=== PATIENT | male | born 1950 | race Caucasian/White ===

== ENCOUNTER 2018-06-22 08:30 | Day surgery (SDC) | payer MEDICARE, OTHER, SELFPAY ==
[2018-06-22 09:00] VITALS: BP 131/77; PULSE 71; RESP 18; TEMP 36.3; O2SAT 99
[2018-06-22] MEDS: SODIUM CHLORIDE 0.9% 1,000 ML 200 ML IV (09:35)
--- NOTE | 2018-06-22 10:08 | PM.HP.1 ---
History of Present Illness Date Patient Seen: 06/22/18 Time Patient Seen: 10:09 Chief complaint: [id number] Narrative: 67yo M for surveillance colonoscopy. Last scope around 2001, polyps found. Mother had CRC around her 70s. No alarm symptoms in patient. Diabetic, glucose high this AM at 206, pt did not take his meds yesterday or today due to prep. Patient History Social History household members: spouse Family & Social History Social History: household members spouse Meds Home Medications Medication Instructions Recorded Confirmed Type aspirin 1 tab PO DAILY 06/22/18 06/22/18 History atorvastatin 20 mg PO DAILY 06/22/18 06/22/18 History cholecalciferol (vitamin D3) 1 cap PO DAILY 06/22/18 06/22/18 History [Vitamin D3] lamotrigine 400 mg PO BID 06/22/18 06/22/18 History losartan 50 mg PO DAILY 06/22/18 06/22/18 History topiramate 200 mg PO BID 06/22/18 06/22/18 History Allergies Allergy/AdvReac Type Severity Reaction Status Date / Time No Known Drug Allergies Allergy Verified 06/22/18 09:35 Review of Systems Constitutional Constitutional: Reports as per HPI Exam Vital Signs (past 8 hours): - 06/22/18 09:00 Temperature 97.3 F L Pulse Rate 71 Respiratory Rate 18 Blood Pressure 131/77 Pulse Oximetry 99 Oxygen Delivery Method Room Air Narrative Exam Narrative: AAO, NAD, overweight male EOMI, MMM, no scleral icterus unlabored RA soft, nt/nd MAEW visible skin dry and intact Assessment & Plan (1) History of colon polyps: Current visit: Yes Status: Acute Assessment & Plan narrative: - surveillance colonoscopy in high risk patient --> all R/B/A discussed and pt wishes to proceed
[2018-06-22] MEDS: fentaNYL 250 MCG/5 ML INJ IV (10:29)
[2018-06-22] MEDS: MIDAZOLAM 5 MG/5 ML VIAL IV (10:29)
[2018-06-22 10:45] VITALS: BP 101/61; PULSE 72; RESP 13; TEMP 36.4; O2SAT 95
[2018-06-22 10:58] VITALS: BP 109/61; PULSE 66; RESP 16; TEMP 36.1; O2SAT 97
--- NOTE | 2018-06-22 12:31 | PM.OP.ENDO ---
Operative Date/Time/Diagnoses Date of procedure: 06/22/18 Time of procedure: 10:40 Pre-op diagnosis: Surveillance colonoscopy in high risk patient Post-op diagnosis: same Procedure & Clinicians Study performed: Surveillance colonoscopy Same procedure as scheduled: Yes Indications: Patient with a family history of CRC in Mother, diagnosed around her 70s, as well as a personal history of polyps at his last scope in 2001. Surgeon: Zora Marsh Procedure Notes SCOAP/Timeout: 1013 Procedure in detail: After obtaining informed consent, the patient was brought to the GI suite and placed in the left lateral decubitus position on the examination table. After placement of appropriate monitors, the patient was given incremental doses of Versed and Fentanyl until an appropriate level of sedation was achieved. A time out was held per SCOAP protocol. A digital rectal examination was performed and did not reveal any masses or obstructing lesions. The colonoscope was gently passed into the patient's anus and the entire colon navigated to the level of the cecum with minimal difficulty. Prep was adequate. Once in the cecum, the scope was slowly withdrawn being sure to go before and beyond all mucosal folds and prominences as able to get a thorough examination. No masses or polyps are noted. At the level of the rectal vault, the scope was retroflexed and the internal anal canal was examined. The scope was straightened and air aspirated from the colon. The instrument was removed from the patient's body and the procedure was concluded. The patient was allowed to awaken from sedation without difficulty and taken to the post-anesthesia care unit in good condition. Scope withdrawal time: 11 min Sedation minutes: 25 Specimen(s): none sent Complications: none Impression: negative surveillance colonoscopy Recommendations: Colonscopy in 5 years Follow up: weeks Disposition: PACU
== END 2018-06-22 11:06 | disposition home or self-care (01) ==
PROVIDERS: PCP Physician Assistant; Visit Provider Surgery
PROC: 0DJD8ZZ Inspection of Lower Intestinal Tract, Via Natural or Artificial Opening Endoscopic (ICD-10-PCS; CPT 45378; principal; 2018-06-22 10:45)
DX: Z86.010 Personal history of colon polyps (principal); Z80.0 Family history of malignant neoplasm of digestive organs; E11.9 Type 2 diabetes mellitus without complications
CPT/HCPCS: G0105; 99152; 99153; J2250; J3010

== ENCOUNTER → 2018-11-24 15:14 | Outpatient (ROUT) | payer MEDICARE, OTHER, SELFPAY ==
[2018-11-24 15:25] LABS: Add Manual Diff / Slide Review NO; Basophils Absolute Auto 0 /uL (0-100); Basophils Percent Auto 0.9 % (0-2); Eosinophils Absolute Auto 100 /uL (0-450); Eosinophils Percent Auto 2.4 % (2-4); Hematocrit 45.8 % (41-53); Hemoglobin 15.2 g/dL (13.5-17.5); Lymphocytes Absolute Auto 1200 /uL (1100-4500); Lymphocytes Percent Auto 22.6 % (25-40); Mean Corpuscular HGB Conc 33.2 % (30-36); Mean Corpuscular Hemoglobin 28.9 PG (26-34); Mean Corpuscular Volume 87.2 fL (80-100); Monocytes Absolute Auto 500 /uL (0-900); Monocytes Percent Auto 9.5 % (3-14); Neutrophils Absolute Auto 3500 /uL (1500-7000); Neutrophils Percent Auto 64.6 % (50-75); Platelet Count 168 X10^3/uL (150-400); Red Blood Cell Count 5.25 X10^6/uL (4.5-5.9); Red Cell Distribution Width 13.9 % (11.6-14.8); White Blood Cell Count 5.4 X10^3/uL (4.5-11.0)
[2018-11-24 15:44] LABS: Alanine Aminotransferase 27 IU/L (21-72); Albumin Globulin Ratio 1.7 (1.0-2.8); Alkaline Phosphatase 88 U/L (38-126); Aspartate Aminotransferase 30 IU/L (17-59); BUN Creatinine Ratio 16.9 (6-22); Bilirubin Total 0.5 mg/dL (0.2-1.3); Blood Urea Nitrogen 22 mg/dL (9-20); Calcium 9.5 mg/dL (8.4-10.2); Carbon Dioxide 25 mmol/L (22-32); Chloride 109 mmol/L (98-107); Cholesterol 136 mg/dL (140-199); Estimated Glomerular Filt Rate 55.1 mL/min (>60); Globulin 2.4 g/dL (1.7-4.1); Glucose 107 mg/dL (80-110); HDL Cholesterol 60 mg/dL (40-60); HEMOLYSIS < 15 (0-50); LDL Cholesterol Calculated 56 mg/dL (<100); Potassium 4.2 mmol/L (3.4-5.1); Sodium 141 mmol/L (137-145); Total Protein 6.4 g/dL (6.3-8.2); Triglycerides 100 mg/dL (35-150)
== END ==
PROVIDERS: PCP Physician Assistant; Visit Provider Physician Assistant
DX: I10 Essential (primary) hypertension (principal); E78.5 Hyperlipidemia, unspecified; E11.9 Type 2 diabetes mellitus without complications
CPT/HCPCS: 80053; 80061; 85025

== ENCOUNTER → 2020-02-29 19:10 | Outpatient (ROUT) | payer MEDICARE, OTHER, SELFPAY ==
[2020-02-29 19:33] LABS: Add Manual Diff / Slide Review NO; Basophils Absolute Auto 0 /uL (0-100); Basophils Percent Auto 0.8 % (0-2); Eosinophils Absolute Auto 200 /uL (0-450); Eosinophils Percent Auto 2.9 % (2-4); Hematocrit 46.5 % (41-53); Hemoglobin 14.9 g/dL (13.5-17.5); Lymphocytes Absolute Auto 1400 /uL (1100-4500); Lymphocytes Percent Auto 24.5 % (25-40); Mean Corpuscular HGB Conc 32.2 % (30-36); Mean Corpuscular Hemoglobin 27.9 PG (26-34); Mean Corpuscular Volume 86.9 fL (80-100); Monocytes Absolute Auto 600 /uL (0-900); Monocytes Percent Auto 9.8 % (3-14); Neutrophils Absolute Auto 3700 /uL (1500-7000); Platelet Count 194 X10^3/uL (150-400); Red Blood Cell Count 5.35 X10^6/uL (4.5-5.9); Red Cell Distribution Width 13.2 % (11.6-14.8); White Blood Cell Count 5.9 X10^3/uL (4.5-11.0)
[2020-02-29 19:37] LABS: Alanine Aminotransferase 27 IU/L (<50); Albumin 3.8 g/dL (3.5-5.0); Albumin Globulin Ratio 1.7 (1.0-2.8); Alkaline Phosphatase 100 U/L (38-126); Aspartate Aminotransferase 25 IU/L (17-59); Bilirubin Total 0.4 mg/dL (0.2-1.3); Blood Urea Nitrogen 22 mg/dL (9-20); Calcium 9.2 mg/dL (8.4-10.2); Carbon Dioxide 30 mmol/L (22-32); Chloride 106 mmol/L (98-107); Cholesterol 155 mg/dL (140-199); Estimated Glomerular Filt Rate 47.5 mL/min (>60); Globulin 2.2 g/dL (1.7-4.1); Glucose 172 mg/dL (80-110); HDL Cholesterol 61 mg/dL (40-60); LDL Cholesterol Calculated 59 mg/dL (<100); Potassium 4.8 mmol/L (3.4-5.1); Sodium 137 mmol/L (137-145); Triglycerides 174 mg/dL (35-150)
[2020-02-29 19:39] LABS: NT-proBNP (BNP-Adult 18+) 33 pg/mL (<125)
[2020-02-29 19:42] LABS: Erythrocyte Sedimentation Rate 1 MM/HR (0-15)
[2020-02-29 19:45] LABS: HEMOLYSIS 18 (0-50)
[2020-02-29 20:06] LABS: C-Reactive Protein Quant < 0.5 mg/dL (<1.0)
== END ==
PROVIDERS: PCP Physician Assistant; Visit Provider Physician Assistant
DX: E11.21 Type 2 diabetes mellitus with diabetic nephropathy (principal); E78.2 Mixed hyperlipidemia; M79.10 Myalgia, unspecified site; M19.90 Unspecified osteoarthritis, unspecified site; R06.02 Shortness of breath; Z12.5 Encounter for screening for malignant neoplasm of prostate
CPT/HCPCS: 80053; 80061; 83880; 85025; 85651; 86140; G0103

== ENCOUNTER → 2021-05-02 13:33 | Outpatient (CLI) | payer MEDICARE, OTHER, SELFPAY ==
--- NOTE | 2021-05-02 13:35 | DI.MRI.S_ITS ---
PROCEDURE: MR PELIS WO/W CON INDICATIONS: BPH TECHNIQUE: Coronal HASTE, axial T1 FSE with fat saturation, 3-plane nonbreath-hold T2 FSE. After the administration of contrast, dynamic axial, delayed axial and coronal VIBE or 2-D FLASH with fat saturation through the pelvis. Optional diffusion weighted imaging and ADC may be performed. COMPARISON: None. FINDINGS: Image quality: Diffusion weighted and dynamic contrast enhanced images are diagnostic. Prostate: Gland size is 6.6 x 6.2 x 4.5 cm cm; ellipsoid gland volume is 95 mL. No significant foci of intrinsic T1 hyperintensity to suggest hemorrhage. Multiple BPH nodules Lesion size(s): Lesion 1: 1.4 x 1.2 cm, (05/31) Lesion location(s) (sector): Lesion 1: Left mid gland transitional zone Lesion description: Lesion 1: Oval T2 weighted imaging (T2WI) morphology score: Lesion 1: 4 Diffusion weighted imaging (DWI) morphology score: Lesion 1: 4 Dynamic contrast enhancement (DCE): Lesion 1: Present Lesion PI-RADS score: Lesion 1: PI-RADS 4 Genitourinary system: There is asymmetric intrinsic T1 hyperintense signal in the right seminal vesicle. The size of the seminal vesicles is similar. Bladder wall thickness is normal. Distal ureters are non distended. Bowel and peritoneum: No pathologic free pelvic fluid. Inferior colon and small bowel loops are normal in caliber. The appendix is not dilated. Nodes and vessels: No pelvic or inguinal adenopathy by size criteria. Iliac vessels are normal in caliber. Soft tissues: No inguinal hernias. Bones: Marrow demonstrates normal overall signal, without lesions to suggest metastases. IMPRESSION: 1. Marked prostatomegaly with multiple BPH nodules. 2. Left mid gland transitional zone observation measuring 1.4 cm. PI-RADS 4. 3. Suspect hemorrhage within the right seminal vesicle. 4. No adenopathy. Dictated by: Gui Charles M.D. on 05/02/2021 at 14:26 Approved by: Gui Charles M.D. on 05/02/2021 at 14:40
== END ==
PROVIDERS: PCP Physician Assistant; Referring Provider Specialist; Visit Provider Specialist
DX: R97.20 Elevated prostate specific antigen [PSA] (principal); N13.8 Other obstructive and reflux uropathy; N40.1 Benign prostatic hyperplasia with lower urinary tract symptoms; N40.2 Nodular prostate without lower urinary tract symptoms
CPT/HCPCS: 72197

== ENCOUNTER → 2021-10-10 13:59 | Outpatient (CLI) | payer MEDICARE, OTHER, SELFPAY ==
[2021-10-10 14:58] LABS: Hemoglobin 14.6 g/dL (13.5-17.5); Mean Corpuscular HGB Conc 33.9 % (30-36); Mean Corpuscular Hemoglobin 29.2 PG (26-34); Mean Corpuscular Volume 86.2 fL (80-100); Platelet Count 180 X10^3/uL (150-400); Red Blood Cell Count 4.99 X10^6/uL (4.5-5.9); Red Cell Distribution Width 13.5 % (11.6-14.8); White Blood Cell Count 5.3 X10^3/uL (4.5-11.0)
[2021-10-10 15:14] LABS: Alanine Aminotransferase 37 IU/L (<50); Albumin 4.2 g/dL (3.5-5.0); Albumin Globulin Ratio 1.7 (1.0-2.8); Alkaline Phosphatase 74 U/L (38-126); Aspartate Aminotransferase 36 IU/L (17-59); BUN Creatinine Ratio 15.2 (6-22); Bilirubin Total 0.4 mg/dL (0.2-1.3); Blood Urea Nitrogen 20 mg/dL (9-20); Calcium 8.9 mg/dL (8.4-10.2); Carbon Dioxide 25 mmol/L (22-32); Chloride 110 mmol/L (98-107); Cholesterol 133 mg/dL (140-199); Estimated Glomerular Filt Rate 58 mL/min (>60); Globulin 2.5 g/dL (1.7-4.1); Glucose 71 mg/dL (80-110); Sodium 141 mmol/L (137-145); Total Protein 6.7 g/dL (6.3-8.2); Triglycerides 101 mg/dL (35-150)
[2021-10-10 15:16] LABS: HDL Cholesterol 60 mg/dL (40-60); HEMOLYSIS < 15 (0-50); LDL Cholesterol Calculated 53 mg/dL (<100); Potassium 3.9 mmol/L (3.4-5.1)
[2021-10-10 15:43] LABS: TSH w/ Reflex to FT4 0.52 uIU/mL (0.47-4.68)
[2021-10-10 16:11] LABS: Creatinine Urine Random 143.1 mg/dL
[2021-10-10 16:16] LABS: Microalbumin Urine Random 5.3 mg/dL (0-1.6)
[2021-10-15 17:07] LABS: Lamotrigine Lamictal 8.5 ug/mL (2.0-20.0)
== END ==
PROVIDERS: PCP Internal Medicine; Referring Provider Internal Medicine; Visit Provider Internal Medicine
DX: E11.22 Type 2 diabetes mellitus with diabetic chronic kidney disease (principal); E11.3593 Type 2 diabetes mellitus with proliferative diabetic retinopathy without macular edema, bilateral; E78.2 Mixed hyperlipidemia; I10 Essential (primary) hypertension; N18.32 Chronic kidney disease, stage 3b; Z79.4 Long term (current) use of insulin; G40.909 Epilepsy, unspecified, not intractable, without status epilepticus
CPT/HCPCS: 36415; 80053; 80061; 80175; 82043; 82570; 83036; 84443; 85027

== ENCOUNTER → 2021-12-11 13:47 | Outpatient (CLI) | payer MEDICARE, OTHER, SELFPAY ==
--- NOTE | 2021-12-20 16:40 | DIAB.MNT ---
Initial Diabetes Medical Nutrition Therapy Assessment Name: John Perez (Isaiah) Date: 12/11/21 Time: 2-3p Dx: Type II Diabetes Provider: Lyndsay Colon presents for initial visit today. States he has had DM for 25 years. +FH of Dm with father and paternal grandfather. Reports he wants to cut back on some foods but worries about hypoglycemia. Treats with PBj, milk, or sometimes beer. Experienced [id number] last month, none this month. PMH of retinopathy and CKD with recent GFR of 58 and Cr of 1.32. Last HgA1c of 7% in Sep 2021. Does not like to prick finger. Interested in CGM, provider agrees per notes. Given 4 injections per day, he should qualify for CGM coverage. Diet recall: 10a: frozen chimichanga and 3c coffee with 1 TBS sweet creamer snackin-3 small slices pizza 6p: steak and 2 red skin potatoes, no veggies or broccoli ; shrimp salad Beverages: coffee, crystal light, water Anthropometrics: Ht: 6'3 Wt: 256# Physical Activity: Has 5 acres and horses. 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 Self-Monitoring Blood Glucose: Only checks FBG. Today was 122mg/dL in goal. States FBG often 100-140mg/dL. Diabetes Medications: Glargine 50u HS Aspart 40u TID Pertinent Labs: 09/2021 HgA1c 7% GFR: 58 ml/min Cr: 1.32 mg/dl cholesterol 133 mg/dl LDL 53 mg/dl HDL; 60 mg/dl Past Medical History: (Last Updated 09/20/21 @ 15:14 by Gene Umana MD) BPH w urinary obs/LUTS Diabetic retinopathy Elevated PSA Erectile dysfunction due to diabetes mellitus Essential hypertension Mixed hyperlipidemia Obesity (BMI 30.0-34.9) Seizure disorder Stage 3b chronic kidney disease (CKD) Type 2 diabetes mellitus with stage 3b chronic kidney disease Nutrition Rx: Plate Method Nutrition Diagnosis: - Predicted excessive Na intake r/t convenience foods aeb diet recall - Self monitoring deficit r/t not wanting to check BG aeb pt report of only checking FBG - Nutrition and foods related knowledge deficit r/t no education on proper low tx aeb pt report of treating with proteins and ETOH Intervention: This participant was very receptive. Provided appropriate educational handouts. Discussed the following topics: Completed intake assessment. Discussed barriers to care. Importance of self-monitoring, potential for CGM, process of CGM trial and ordering personal CGM Plate Method Heart health nutrition Rule of 15 to treat low blood sugar ETOH impact on BG Created SMART goals for patient self-care and success. Goals: Download CGM apps Practice Rule of 15 of lows Follow-up: KALPANA SEAMAN follow-up in 1 week for CGM trail. JURGEN will provide ADS form to provider to order CGM. Will discuss nutrition in detail in the future. Marietta Lira RDN, [facility] Certified Diabetes Care and Business Writer P: [phone] Thank you for this referral
== END ==
PROVIDERS: PCP Internal Medicine; Referring Provider Internal Medicine; Visit Provider Internal Medicine
DX: E11.9 Type 2 diabetes mellitus without complications (principal); Z79.4 Long term (current) use of insulin; Z71.3 Dietary counseling and surveillance
CPT/HCPCS: 97802

== ENCOUNTER → 2021-12-19 13:10 | Outpatient (CLI) | payer MEDICARE, OTHER, SELFPAY ==
--- NOTE | 2021-12-26 13:12 | DIAB.FU ---
Follow-up Diabetes Education Assessment: CGM Trial Name: John Perez (Isaiah) Date: 12/19/21 Time: 130-215p Dx: Type II Diabetes Provider: Lyndsay Colon presents for diabetes follow-up and CGM trial placement. Reports increasing vegetable intake, mostly with carrots. Has downloaded apps for CGM trial, as discussed. Diabetes Medications: Glargine 50u HS Aspart 40u TID Pertinent Labs: 09/2021 HgA1c 7% GFR: 58 ml/min Cr: 1.32 mg/dl cholesterol 133 mg/dl LDL 53 mg/dl HDL; 60 mg/dl Past Medical History: (Last Updated 09/20/21 @ 15:14 by Gene Umana MD) BPH w urinary obs/LUTS Diabetic retinopathy Elevated PSA Erectile dysfunction due to diabetes mellitus Essential hypertension Mixed hyperlipidemia Obesity (BMI 30.0-34.9) Seizure disorder Stage 3b chronic kidney disease (CKD) Type 2 diabetes mellitus with stage 3b chronic kidney disease Intervention: This participant was very receptive. Provided appropriate educational handouts. Discussed the following topics: CGM education and self-placement Reviewed CGM and finger prick uses and how to treat a low safely Discussed process for personal CGM Created SMART goals for patient self-care and success. Goals: Download CGM apps- met Add vegetables daily- met Practice Rule of 15 of lows CGM Trial for 10 days Follow-up: KALPANA SEAMAN follow-up in [address] CGM order form in PCP office. Will review CGM data and provide DM follow-up in two weeks. Marietta Lira RDN, [facility] Certified Diabetes Care and Client Care Coordinator P: [phone] Thank you for this referral
== END ==
PROVIDERS: PCP Internal Medicine; Referring Provider Internal Medicine; Visit Provider Internal Medicine
DX: E11.9 Type 2 diabetes mellitus without complications (principal); Z79.4 Long term (current) use of insulin; Z71.3 Dietary counseling and surveillance
CPT/HCPCS: G0108

== ENCOUNTER → 2022-01-03 12:56 | Outpatient (CLI) | payer MEDICARE, OTHER, SELFPAY ==
--- NOTE | 2022-01-04 11:14 | DIAB.MNTFU ---
Follow-up Diabetes Medical Nutrition Therapy Assessment Name: John Perez (Isaiah) Date: 01/03/22 Time: 1-2p Dx: Type II Diabetes Provider: Lyndsay Colon presents for diabetes follow-up. Reports he did not like the Dexcom CGM. States he felt it was inaccurate 10+ points. It did alert him to lows, but when the finger prick was 5 points off he felt that it was not reliable. Feels the apps are draining his phone battery and wants to delete them today. Interested in the [employer] d/t doing personal research. This RD/CDCES can try to provide him a trial prior to ordering. States he has been eating more carrots and cauliflower. Diet recall indicates high sodium intake with burritos at breakfast (600mg Na) and pizza as a snack in the afternoon daily. Additionally high carb intake with long periods of fasting between some days. 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 Self-Monitoring Blood Glucose: Only checks FBG. Today was 113mg/dL in goal. States FBG often 100-140mg/dL. Could not access the CGM data from his alexandr today d/t connection problems. Per provider notes, 85% time in range but some severe BG excursions of 55 to 300 mg/dL. Isaiah states he has been better about treating lows with 10-15g quick carbs using Rule of15. We deleted the CGM apps per his request today. Diabetes Medications: Glargine 50u HS Aspart 40u BID at meals Pertinent Labs: 09/2021 HgA1c 7% GFR: 58 ml/min Cr: 1.32 mg/dl cholesterol 133 mg/dl LDL 53 mg/dl HDL; 60 mg/dl Past Medical History: (Last Reviewed 12/28/21 @ 09:30 by Gene Umana MD) BPH w urinary obs/LUTS Diabetic retinopathy Elevated PSA Erectile dysfunction due to diabetes mellitus Essential hypertension Mixed hyperlipidemia Obesity (BMI 30.0-34.9) Seizure disorder Stage 3b chronic kidney disease (CKD) Type 2 diabetes mellitus with stage 3b chronic kidney disease Nutrition Rx: Plate Method Nutrition Diagnosis: - Predicted excessive Na intake r/t convenience foods aeb diet recall - in progress - Self monitoring deficit r/t not wanting to check BG aeb pt report of only checking FBG- in progress - Nutrition and foods related knowledge deficit r/t no education on proper low tx aeb pt report of treating with proteins and ETOH- improved - Excessive CHO intake r/t long periods of fasting resulting in large portions aeb diet recall - new Intervention: This participant was very receptive. Provided appropriate educational handouts. Discussed the following topics: Blood sugar review and trends. Plate Method, impact of macronutrients on blood sugar, meal timing, carbohydrate counting, pairing macronutrients and spreading out carbohydrates for better blood glucose management Heart and kidney health nutrition: sodium Meal planning and carb portion review Lower Na breakfast ideas Potential for different CGM trail Created SMART goals for patient self-care and success. Goals: Practice Rule of 15 of lows- met CGM Trial for 10 days - met Take a photo of oatmeal at home- new Add lunch and afternoon snack scheduled - new Reduce carbs at dinner (1c for rice or pasta and 1.5c for potatoes)- new Follow-up: KALPANA SEAMAN follow-up in 2-3 weeks Marietta Lira RDN, [facility] Certified Diabetes Care and Federal Appellate Law Clerk P: [phone] Thank you for this referral
== END ==
PROVIDERS: PCP Internal Medicine; Referring Provider Internal Medicine; Visit Provider Internal Medicine
DX: E11.9 Type 2 diabetes mellitus without complications (principal); Z71.3 Dietary counseling and surveillance; Z79.4 Long term (current) use of insulin
CPT/HCPCS: 97803

== ENCOUNTER 2022-01-13 07:50 | Emergency (ER) | payer MEDICARE, OTHER, SELFPAY ==
[2022-01-13] VITALS (14 sets, daily range): BP systolic 153–209; BP diastolic 70–98; PULSE 92–103; RESP 17–28; TEMP 36.7; O2SAT 93–98; BMI 33.1
--- NOTE | 2022-01-13 08:05 | DI.RAD.S_ITS ---
PROCEDURE: XR CHEST 1V INDICATIONS: chest pain TECHNIQUE: One view of the chest was acquired. COMPARISON: [facility], , CHEST 2VW, 06/18/2011, 13:25. FINDINGS: Surgical changes and devices: None. Lungs and pleura: On this semiupright portable chest examination, no large pneumothorax or large pleural effusions are seen. No focal infiltrates are seen. Mediastinum: Mediastinal contours appear normal. Heart size is normal. Bones and chest wall: No suspicious bony lesions. Age-appropriate bony degenerative changes are seen. Overlying soft tissues appear unremarkable. IMPRESSION: Portable chest within normal limits. Dictated by: Stuart Dotson M.D. on 01/13/2022 at 8:09 Approved by: Stuart Doston M.D. on 01/13/2022 at 8:10
--- NOTE | 2022-01-13 08:14 | ED_ITS ---
HPI - URI/Sore Throat General Chief Complaint: Shortness of Breath/Dyspnea Stated Complaint: SOB/CHEST PAIN Time Seen by Provider: 01/13/22 08:09 Source: patient and family Mode of arrival: Ambulatory History of Present Illness HPI Narrative: Patient here with . Complains of cough cold congestion nasal congestion short of breath for the past 1 week, starting last Friday. Patient states had flu shot as well as COVID vaccine this year. Unknown sick contacts. No fever or chills. No lymphedema. No history of CHF. Has reproducible sternal chest discomfort pain with coughing and movement. Patient sounds very nasally congested. Has audible wheezing. No formal diagnosis of asthma but long suspected of having asthma. No history of CHF. Denies any exertional chest pain. Patient in no distress at this time. Related Data Home Medications Medication Instructions Recorded Confirmed aspirin 81 mg chewable tablet 1 tab PO DAILY 06/22/18 12/28/21 atorvastatin 20 mg tablet 20 mg PO DAILY 06/22/18 12/28/21 cholecalciferol (vitamin D3) 50 1 cap PO DAILY 06/22/18 12/28/21 mcg (2,000 unit) capsule (Vitamin D3) lamotrigine 200 mg tablet 400 mg PO BID 06/22/18 12/28/21 topiramate 200 mg tablet 200 mg PO BID 06/22/18 12/28/21 insulin aspart U-100 100 unit/mL 30 unit SUBCUT TIDWMEAL 10/17/20 12/28/21 (3 mL) subcutaneous pen (Novolog Flexpen U-100 Insulin aspart) insulin glargine 100 unit/mL (3 44 unit SUBCUT QPM 10/17/20 12/28/21 mL) subcutaneous pen (Lantus Solostar U-100 Insulin) Previous Rx's Medication Instructions Recorded tamsulosin 0.4 mg capsule 0.4 mg PO BEDTIME #90 caps 08/22/21 losartan 100 mg tablet 100 mg PO DAILY #90 tabs 09/20/21 benzonatate 100 mg capsule 100 mg PO TID PRN cough #20 caps 01/13/22 Allergies Allergy/AdvReac Type Severity Reaction Status Date / Time No Known Drug Allergies Allergy Verified 12/28/21 13:00 Review of Systems Review of Systems Narrative: GENERAL: negative chills, fatigue, malaise, fever, sweats. HEENT: negative sinus pain, ear pain, sore throat, positive nasal congestion, RESPIRATORY: Positive dyspnea, cough CARDIOVASCULAR: negative chest pain, palpitations GASTROINTESTINAL: negative nausea, vomiting, abdominal pain : negative dysuria, frequency, hematuria MUSCULOSKELETAL: negative muscle or bony pain SKIN: negative rash, skin lesions NEUROLOGIC: negative weakness, numbness ROS Unobtainable: All systems reviewed & are unremarkable except as noted in HPI and below Patient History Medical History BPH w urinary obs/LUTS Diabetic retinopathy Elevated PSA Erectile dysfunction due to diabetes mellitus Essential hypertension Mixed hyperlipidemia Obesity (BMI 30.0-34.9) Seizure disorder Stage 3b chronic kidney disease (CKD) Type 2 diabetes mellitus with stage 3b chronic kidney disease Surgical History Hx of prostate biopsy Family History Father Diabetes mellitus Grandfather Diabetes mellitus Social History marital status: details: three adopted children, 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 EYES: Pupils equal round No scleral icterus. ENT: Mucous membranes moist. bilateral edematous nasal mucosa NECK: Trachea midline. CARDIOVASCULAR: Regular rate and rhythm without murmurs RESPIRATORY: Speaking full sentences, there is diminished bilateral lung sounds at the bases. There is diffuse mild bilateral wheezing. No rales GASTROINTESTINAL: Abdomen soft, non-tender EXTREMITIES: No gross deformities. No ankle edema BACK: No flank tenderness. NEURO: AOx4. SKIN: Warm and dry PSYCH: Not anxious, is cooperative Initial Vital Signs Initial Vital Signs: Vital Signs Pulse Rate 97 H 01/13/22 08:01 Pulse Oximetry 95 01/13/22 08:01 Course Course Course Narrative: No new issues during course of stay Orders Ordered: ED Orders 01/13/22 07:58 Complete Blood Count AUTO DIFF Stat Comprehensive Metabolic Panel Stat Covid-19 + FLU A/B + RSV - PCR Stat Lipase Stat Magnesium Stat Partial Thromboplastin Time Stat Prothrombin Time INR Stat Troponin & CK Cardiac Panel Stat 01/13/22 08:05 XR chest 1V Stat EKG-12 Lead Stat Discontinued Medications Albuterol (Albuterol 2.5 Mg/3 Ml Neb (Adult)) 2.5 mg INH NOW ONE Stop: 01/13/22 09:26 Last Admin: 01/13/22 09:34 Dose: 2.5 mg Documented By: FATOU Albuterol (Albuterol Hfa Prepack) 1 box MISC SEEINSTR ONE Stop: 01/13/22 09:26 Last Admin: 01/13/22 09:34 Dose: 1 box Documented By: FATOU Albuterol/Ipratropium (Albuterol/Ipratropium 3 Ml Ampul) 3 ml INH NOW ONE Stop: 01/13/22 08:15 Last Admin: 01/13/22 08:20 Dose: 3 ml Documented By: FATOU Aspirin (Aspirin 81 Mg Chew Tab) 324 mg PO NOW ONE Stop: 01/13/22 08:06 Last Admin: 01/13/22 09:01 Dose: Not Given Documented By: EUGENIO Dexamethasone (Dexamethasone 10 Mg/Ml Vial) 10 mg IV NOW ONE Stop: 01/13/22 09:26 Last Admin: 01/13/22 10:15 Dose: 10 mg Documented By: TRINITY Losartan Potassium (Losartan 50 Mg Tablet) 100 mg PO NOW ONE Stop: 01/13/22 09:26 Last Admin: 01/13/22 10:30 Dose: 100 mg Documented By: EUGENIO Oxymetazoline HCl (Oxymetazoline Nasal [place] 15 Ml) 2 sprays NASAL NOW ONE Stop: 01/13/22 08:15 Last Admin: 01/13/22 09:13 Dose: 2 sprays Documented By: EUGENIO Reevaluation(s) Reevaluation #1: Reviewed with patient and results. At this time RSV infection causing patient's symptoms with reproducible chest wall pain. Hurts to cough and on palpation as well. Clinically not cardiac source. Lungs do sound better after DuoNeb treatment. Would benefit another nebulizer. Also will give inhaler to go home with. Blood pressure medication to be given this morning. Patient has not taken his home blood pressure medication. 153/70 blood pressure improved. Time: 11:10 Vital Signs Vital signs: Vital Signs - 8 hr 01/13/22 09:00 01/13/22 09:01 01/13/22 09:01 Pulse Rate 93 H 94 H Respiratory Rate 18 18 Blood Pressure 184/80 H Pulse Oximetry 95 93 Oxygen Delivery Method 01/13/22 09:30 01/13/22 09:31 01/13/22 09:31 Pulse Rate 93 H 92 H Respiratory Rate 17 18 Blood Pressure 172/81 H Pulse Oximetry 95 94 Oxygen Delivery Method 01/13/22 10:00 01/13/22 10:00 01/13/22 10:30 Pulse Rate 100 H 98 H Respiratory Rate 18 22 Blood Pressure 186/84 H Pulse Oximetry 95 95 Oxygen Delivery Method 01/13/22 10:31 01/13/22 10:31 01/13/22 11:14 Pulse Rate 99 H 96 H Respiratory Rate 28 H 18 Blood Pressure 181/79 H 153/70 H Pulse Oximetry 95 96 Oxygen Delivery Method Room Air 01/13/22 11:00 01/13/22 11:00 Pulse Rate 95 H Respiratory Rate 20 Blood Pressure 153/70 H Pulse Oximetry 95 Oxygen Delivery Method MDM - URI/Sore Throat Differential Diagnosis Differential diagnosis: Likely upper respiratory infection, viral infection, influenza and other (COVID) Lab Data Result diagrams: 01/13/22 07:58 01/13/22 07:58 Labs: Lab Results 01/13/22 01/13/22 01/13/22 Range/Units 07:58 07:58 07:58 WBC 5.1 (4.5-11.0) X10^3/uL RBC 5.42 (4.5-5.9) X10^6/uL Hgb 15.7 (13.5-17.5) g/dL Hct 47.0 (41-53) % MCV 86.7 (80-100) fL MCH 29.0 (26-34) PG MCHC 33.4 (30-36) % RDW 13.7 (11.6-14.8) % Plt Count 136 L (150-400) X10^3/uL Neut % (Auto) 58.1 (50-75) % Lymph % (Auto) 20.5 L (25-40) % [place] % (Auto) 16.9 H (3-14) % Eos % (Auto) 3.9 (2-4) % Baso % (Auto) 0.6 (0-2) % Neut # (Auto) 3000 (2701-6481) /uL Lymph # (Auto) 1100 (8075-2150) /uL [place] # (Auto) 900 (0-900) /uL Eos # (Auto) 200 (0-450) /uL Baso # (Auto) 0 (0-100) /uL PT 12.1 (10.1-12.7) SECONDS INR 1.1 (0.9-1.3) APTT 32 (26-36) SECONDS Sodium 140 (137-145) mmol/L Potassium 4.7 (3.4-5.1) mmol/L Chloride 105 (98-107) mmol/L Carbon Dioxide 25 (22-32) mmol/L BUN 18 (9-20) mg/dL Creatinine 1.36 H (0.66-1.25) mg/dL Estimated GFR 56 L (>60) mL/min BUN/Creatinine Ratio 13.2 (6-22) Glucose 178 H (80-110) mg/dL Calcium 8.9 (8.4-10.2) mg/dL Magnesium 2.0 (1.6-2.3) mg/dL Total Bilirubin 0.7 (0.2-1.3) mg/dL AST 34 (17-59) IU/L ALT 40 (<50) IU/L Alkaline Phosphatase 111 (38-126) U/L Total Creatine Kinase 564 H (55-170) U/L CK-MB (CK-2) 6.83 H (<2.37) ng/mL CK-MB (CK-2) Rel Index 1.2 L (1.5-5.0) % Troponin I < 0.012 (0.01-0.034) ng/mL Total Protein 7.3 (6.3-8.2) g/dL Albumin 4.3 (3.5-5.0) g/dL Globulin 3.0 (1.7-4.1) g/dL Albumin/Globulin Ratio 1.4 (1.0-2.8) Lipase 93 (23-300) U/L SARS-CoV-2 (PCR) (Negative) Influenza A (RT-PCR) (NEGATIVE) Influenza B (RT-PCR) (NEGATIVE) RSV (PCR) (Negative) 01/13/22 Range/Units 07:58 WBC (4.5-11.0) X10^3/uL RBC (4.5-5.9) X10^6/uL Hgb (13.5-17.5) g/dL Hct (41-53) % MCV (80-100) fL MCH (26-34) PG MCHC (30-36) % RDW (11.6-14.8) % Plt Count (150-400) X10^3/uL Neut % (Auto) (50-75) % Lymph % (Auto) (25-40) % [place] % (Auto) (3-14) % Eos % (Auto) (2-4) % Baso % (Auto) (0-2) % Neut # (Auto) (3090-3665) /uL Lymph # (Auto) (0353-9041) /uL [place] # (Auto) (0-900) /uL Eos # (Auto) (0-450) /uL Baso # (Auto) (0-100) /uL PT (10.1-12.7) SECONDS INR (0.9-1.3) APTT (26-36) SECONDS Sodium (137-145) mmol/L Potassium (3.4-5.1) mmol/L Chloride (98-107) mmol/L Carbon Dioxide (22-32) mmol/L BUN (9-20) mg/dL Creatinine (0.66-1.25) mg/dL Estimated GFR (>60) mL/min BUN/Creatinine Ratio (6-22) Glucose (80-110) mg/dL Calcium (8.4-10.2) mg/dL Magnesium (1.6-2.3) mg/dL Total Bilirubin (0.2-1.3) mg/dL AST (17-59) IU/L ALT (<50) IU/L Alkaline Phosphatase (38-126) U/L Total Creatine Kinase (55-170) U/L CK-MB (CK-2) (<2.37) ng/mL CK-MB (CK-2) Rel Index (1.5-5.0) % Troponin I (0.01-0.034) ng/mL Total Protein (6.3-8.2) g/dL Albumin (3.5-5.0) g/dL Globulin (1.7-4.1) g/dL Albumin/Globulin Ratio (1.0-2.8) Lipase (23-300) U/L SARS-CoV-2 (PCR) Negative (Negative) Influenza A (RT-PCR) Flu a negative (NEGATIVE) Influenza B (RT-PCR) Flu b negative (NEGATIVE) RSV (PCR) Positive A (Negative) Point of Care Testing Glucose POC 162 Imaging Data Chest x-ray: Radiologist's Impression: [address] [address] XRay Report Signed Patient: John Perez MR#: [id number] : 1950 Acct:[id number] Age/Sex: 71 / M Date of Service: 01/13/22 Loc: ED Accession Number: [id number] ?? Procedure: XR chest 1V Ordering Provider: Shaun Chino MD PROCEDURE:? XR CHEST 1V ? INDICATIONS:? chest pain ? TECHNIQUE:? One view of the chest was acquired.? ? COMPARISON:? [facility], , CHEST 2VW, 06/18/2011, 13:25. ? FINDINGS:? ? Surgical changes and devices:? None.? ? Lungs and pleura:? On this semiupright portable chest examination, no large pneumothorax or large pleural effusions are seen.? No focal infiltrates are seen.? ? Mediastinum:? Mediastinal contours appear normal.? Heart size is normal.? ? Bones and chest wall:? No suspicious bony lesions.? Age-appropriate bony degenerative changes are seen.? Overlying soft tissues appear unremarkable.? ? ? IMPRESSION:? ? Portable chest within normal limits. ? ? ? Dictated by: Stuart Dotson M.D. on 01/13/2022 at 8:09 ? ? Approved by: Stuart Dotson M.D. on 01/13/2022 at 8:10 ? ECG Data Interpretation: Sinus rhythm rate [address] elevation or depression., right bundle-branch block present MDM Narrative Medical decision making narrative: Appropriate for discharge home. Laboratory studies imaging and treatment reassuring. Patient feeling better after breathing treatments here. Return precautions reviewed with patient and . They desire discharge home. Blood pressure noted however patient had not taken his losartan this morning. It was given here prior to arrival 153/70 at time of discharge. Chest pain is reproducible on coughing and movement. Likely not cardiac related. Discharge Plan Departure Patient Disposition: Home Clinical Impression: Respiratory syncytial virus (RSV) infection, Bronchitis Instructions: DI for Respiratory Syncytial Virus -- Adults, DI for Acute Bronchitis Activity Restrictions/Additional Instructions: See family doctor this week for re-evaluation. Continue home medications. Use provided inhaler 2 puffs every 4 hours as needed for cough or feeling short of breath. Return immediately if worse or any questions or concerns or if not feeling better. Prescription for cough medication has been provided for you. Prescriptions: New benzonatate 100 mg capsule 100 mg PO TID PRN (Reason: cough) Qty: 20 0RF No Action losartan 100 mg tablet 100 mg PO DAILY Qty: 90 3RF atorvastatin 20 mg Tablet 20 mg PO DAILY lamotrigine 200 mg Tablet 400 mg PO BID aspirin 81 mg Tablet,Chewable 1 tab PO DAILY topiramate 200 mg Tablet 200 mg PO BID cholecalciferol (vitamin D3) [Vitamin D3] 2,000 unit Capsule 1 cap PO DAILY insulin aspart U-100 [Novolog Flexpen U-100 Insulin] 100 unit/mL (3 mL) insulin pen 30 unit SUBCUT TIDWMEAL Lantus Solostar U-100 Insulin 100 unit/mL (3 mL) insulin pen 44 unit SUBCUT QPM tamsulosin 0.4 mg capsule 0.4 mg PO BEDTIME Qty: 90 3RF Referrals: Gene Umana MD [Primary Care Provider] - Visit Report Forms: Patient Portal/API
[2022-01-13] MEDS: ALBUTEROL/IPRATROPIUM 3 ML AMPUL INH (08:20)
[2022-01-13 08:25] LABS: INR 1.1 (0.9-1.3); Prothrombin Time 12.1 SECONDS (10.1-12.7)
[2022-01-13 08:26] LABS: Add Manual Diff / Slide Review NO; Basophils Absolute Auto 0 /uL (0-100); Basophils Percent Auto 0.6 % (0-2); Eosinophils Absolute Auto 200 /uL (0-450); Eosinophils Percent Auto 3.9 % (2-4); Hemoglobin 15.7 g/dL (13.5-17.5); Lymphocytes Absolute Auto 1100 /uL (1100-4500); Lymphocytes Percent Auto 20.5 % (25-40); Mean Corpuscular HGB Conc 33.4 % (30-36); Mean Corpuscular Volume 86.7 fL (80-100); Monocytes Absolute Auto 900 /uL (0-900); Monocytes Percent Auto 16.9 % (3-14); Neutrophils Absolute Auto 3000 /uL (1500-7000); Neutrophils Percent Auto 58.1 % (50-75); Platelet Count 136 X10^3/uL (150-400); Red Blood Cell Count 5.42 X10^6/uL (4.5-5.9); Red Cell Distribution Width 13.7 % (11.6-14.8); White Blood Cell Count 5.1 X10^3/uL (4.5-11.0)
[2022-01-13 08:27] LABS: PTT Partial Thromboplastin Tim 32 SECONDS (26-36)
[2022-01-13 08:30] LABS: Alanine Aminotransferase 40 IU/L (<50); Albumin 4.3 g/dL (3.5-5.0); Albumin Globulin Ratio 1.4 (1.0-2.8); Alkaline Phosphatase 111 U/L (38-126); Aspartate Aminotransferase 34 IU/L (17-59); BUN Creatinine Ratio 13.2 (6-22); Bilirubin Total 0.7 mg/dL (0.2-1.3); Blood Urea Nitrogen 18 mg/dL (9-20); Calcium 8.9 mg/dL (8.4-10.2); Carbon Dioxide 25 mmol/L (22-32); Chloride 105 mmol/L (98-107); Creatine Kinase 564 U/L (55-170); Estimated Glomerular Filt Rate 56 mL/min (>60); Glucose 178 mg/dL (80-110); HEMOLYSIS 15 (0-50); Lipase 93 U/L (23-300); Potassium 4.7 mmol/L (3.4-5.1); Sodium 140 mmol/L (137-145); Total Protein 7.3 g/dL (6.3-8.2)
[2022-01-13 08:40] LABS: Troponin I < 0.012 ng/mL (0.01-0.034)
[2022-01-13 08:44] LABS: CKMB % Relative Index 1.2 % (1.5-5.0); Creatine Kinase MB 6.83 ng/mL (<2.37)
[2022-01-13 09:05] LABS: Influenza A - CEPHEID Flu A NEGATIVE (NEGATIVE); Influenza B - CEPHEID Flu B NEGATIVE (NEGATIVE); Respiratory Syncytial Virus POSITIVE (Negative)
[2022-01-13] MEDS: OXYMETAZOLINE NASAL SPRAY 15 ML 2 SPRAYS NASAL (09:13)
[2022-01-13 09:16] LABS: COVID-19 CEPHEID 4-PLEX PCR Negative (Negative)
[2022-01-13] MEDS: ALBUTEROL 2.5 MG/3 ML NEB (ADULT) INH (09:34)
[2022-01-13] MEDS: ALBUTEROL HFA PREPACK 1 BOX MISC (09:34)
[2022-01-13] MEDS: DEXAMETHASONE 10 MG/ML VIAL IV (10:15)
[2022-01-13] MEDS: LOSARTAN 50 MG TABLET 100 MG PO (10:30)
== END 2022-01-13 11:16 | disposition home or self-care (01) ==
PROVIDERS: Emergency Provider Emergency Medicine; PCP Internal Medicine
DX: J20.5 Acute bronchitis due to respiratory syncytial virus (principal); R07.9 Chest pain, unspecified; Z20.822 Contact with and (suspected) exposure to COVID-19
CPT/HCPCS: 0241U; 36415; 71045; 80053; 82550; 82553; 82962; 83690; 83735; 84484; 85025; 85610; 85730; 93005; 94640; 96374; 99284; A9270; J1100; J7613

== ENCOUNTER → 2022-02-14 12:49 | Outpatient (CLI) | payer MEDICARE, OTHER, SELFPAY ==
--- NOTE | 2022-02-20 16:53 | DIAB.FU ---
Follow-up Diabetes Education Assessment Name: John Perez (Isaiah) Date: 02/14/22 Time: 105-2p Dx: Type II Diabetes Provider: Lyndsay Isaiah presents today for follow-up Dm visit. States he has cut meal portions in half. States he has been struggling some with holiday sweets, primarily fudge portions (3 pieces resulting in hyperglycemia per report). Reports he has recently had RSV, which he noticed impacted his BP and BG. In fact, BP continue to elevated in the 160s-90 range. Had increased HTN meds as rx?d by provider. Has not contacted provider with recent elevations, which PCP notes indicate he should contact with this info. Endorses continued burrito x2 (high Na) breakfasts and small pizza slices during the day. Has low carb oatmeal at home. Dinner usually balanced. Endorses more veggies at dinner. Continues with low water intake. Has questions regarding sick day management of DM. States he is treating lows with a can of soda and checking BG the next day. 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 No intentional exercise. Self-Monitoring Blood Glucose: Reports FBG have been in goal until recent holiday. In review of meter, this seems accurate. 2 hypoglycemia events in January of 78 and 50 mg/dL. States he has been trying to lower portions and insulin which sometimes results in low BG when not estimated correctly. See FBG below Date FBG 02/05 123 02/06 96 02/07 114 02/08 131 02/09 108 02/10 78 02/11 179 02/12 144 02/13 144 02/14 177 Diabetes Medications: Glargine 50u HS Aspart 35-40u BID at meals Pertinent Labs: 09/2021 HgA1c 7% GFR: 58 ml/min Cr: 1.32 mg/dl cholesterol 133 mg/dl LDL 53 mg/dl HDL; 60 mg/dl Past Medical History: (Last Reviewed 02/20/22 @ 14:01 by Jacinta Cota MD) BPH w urinary obs/LUTS Diabetic retinopathy Elevated PSA Erectile dysfunction due to diabetes mellitus Essential hypertension Mixed hyperlipidemia Obesity (BMI 30.0-34.9) Seizure disorder Stage 3b chronic kidney disease (CKD) Type 2 diabetes mellitus with stage 3b chronic kidney disease Intervention: This participant was very receptive. Provided appropriate educational handouts. Discussed the following topics: Recent blood sugar results and trends Review of Rule of 15- checking BG after treatment Medication management Review of general nutrition recommendations and current intake Reducing Na intake for HTN Contacting provider for appt and to update on BP DM Sick day management Impact of illness of BG Created SMART goals for patient self-care and success. Goals: Take a photo of oatmeal at home- met Add lunch and afternoon snack scheduled - not met Reduce carbs at dinner (1c for rice or pasta and 1.5c for potatoes)- met Limit fudge to 1 piece or less- new After treating low, check BG 15 minutes later- new Increase water to 1.5 x 16oz- new Replace burrito with oatmeal for breakfast- new If BP over 140/90 call Lyndsay- osmani Follow-up: KALPANA SEAMAN follow-up in 3-4 weeks Marietta Lira RDN, JURGEN Certified Diabetes Care and Stunt [employer] P: [phone] Thank you for this referral
== END ==
PROVIDERS: PCP Internal Medicine; Referring Provider Internal Medicine; Visit Provider Internal Medicine
DX: E11.9 Type 2 diabetes mellitus without complications (principal); Z71.3 Dietary counseling and surveillance; Z79.4 Long term (current) use of insulin
CPT/HCPCS: G0108

== ENCOUNTER → 2022-03-13 13:50 | Outpatient (CLI) | payer MEDICARE, OTHER, SELFPAY ==
--- NOTE | 2022-03-29 16:43 | DIAB.FU ---
Follow-up Diabetes Education Assessment Name: John Perez (Isaiah) Date: 03/13/22 Time: 2-310 Dx: Type II Diabetes Isaiah presents for diabetes follow-up. Since adjusting his diet has been experiencing lows and some extreme lows in 50s. Likely needs to reduce novolog at breakfast and dinner. Requesting Freestyle Page trial. Did not like Dexcom. Provider had rx'd CGM, so we will try Freestyle today. Reduced pizza intake since last visit. Cut out frozen breakfast burritos and replaced with oatmeal. Still experiencing elevated BP and has not contacted provider. Physical Activity: Not discussed today Self-Monitoring Blood Glucose: 05/24 elevated FBG. Reports some BG 50-60 after reduced CHO intake. Treats with juice as discussed and then does not follow-up with finger stick to confirm BG 15 min later. Date Pre Post Pre Post Pre Post HS 03/07 118 96 03/08 217 03/09 191 03/10 165 03/11 104 03/12 115 122 03/13 149 DDiabetes Medications: Glargine 50u HS Aspart 35-40u BID at meals Pertinent Labs: 09/2021 HgA1c 7% GFR: 58 ml/min Cr: 1.32 mg/dl cholesterol 133 mg/dl LDL 53 mg/dl HDL; 60 mg/dl Past Medical History: (Last Reviewed 02/20/22 @ 14:01 by Jacinta Cota MD) BPH w urinary obs/LUTS Diabetic retinopathy Elevated PSA Erectile dysfunction due to diabetes mellitus Essential hypertension Mixed hyperlipidemia Obesity (BMI 30.0-34.9) Seizure disorder Stage 3b chronic kidney disease (CKD) Type 2 diabetes mellitus with stage 3b chronic kidney disease Intervention: This participant was very receptive. Provided appropriate educational handouts. Discussed the following topics: Recent blood sugar results and trends Review of RUle of 15 tx for lows and checking 15 min after tx Medication management: consideration for reduced novolog with lower CHO intake (B: 10-20u and D: 15-30u) to prevent lows. Review of general nutrition recommendations and current intake Freestyle Page CGM review, education, and help with placement Created SMART goals for patient self-care and success. Goals: Limit fudge to 1 piece or less- met After treating low, check BG 15 minutes later- not met Increase water to 1.5 x 16oz- not discussed Replace burrito with oatmeal for breakfast- met If BP over 140/90 call Kotal- not met Reduce novolog at breakfast and dinner- new Check BG 15 min after tx of low-new Scan CGM 3 x per day or more- new Follow-up: KALPANA SEAMAN follow-up in 3-4 weeks Marietta Lira RDN, JURGEN Certified Diabetes Care and Radio Communications Mechanician P: [phone] Thank you for this referral
== END ==
PROVIDERS: PCP Internal Medicine; Referring Provider Internal Medicine; Visit Provider Internal Medicine
DX: E11.9 Type 2 diabetes mellitus without complications (principal); Z71.3 Dietary counseling and surveillance; Z79.4 Long term (current) use of insulin
CPT/HCPCS: G0108

== ENCOUNTER → 2022-04-09 14:24 | Outpatient (CLI) | payer MEDICARE, OTHER, SELFPAY ==
--- NOTE | 2022-04-10 14:59 | DIAB.MNTFU ---
Follow-up Diabetes Medical Nutrition Therapy Assessment Name: John Perez (Isaiah) Date: 04/09/22 Time: 235-335p Dx: Type II Diabetes Isaiah presents for DM follow-up after Freestyle Alex trial. Loved this CGM system. Would like rx from provider. RD will coordinate with Dr. Umana. 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 Isaiah often snacks through the day instead of having lunch, which he then does not use insulin for mid-day coverage. This seems to be what may be causing elevations in the afternoon. He cut out the oatmeal we discussed previously due to not feeling it kept him full for the day. This is likely due to long periods of grazing versus eating meals and limited protein with oatmeal for satiety. Endorses limited veggie intake during the day. Today we set up CGM reports for review and provided him reports to give to PCP tomorrow. Anthropometrics: Ht: 6'3 Wt: 155# Physical Activity: Not discussed today Self-Monitoring Blood Glucose: CGM results indicate the following: very high >250: 7% High 181-250: 22% Target 70-180: 70% Low 54-69: 1% Very low <54: 0% Goal of 75% in range recommended. Most elevations occurring in the afternoon. Average glucose 154 mg/dl and CGM estimated A1c of 7% States sometimes if HS glucose is 100 or lower, he does not take glargine. States this does sometimes results in higher glucose the next day, but no lows in evening. Diabetes Medications: Glargine 50u HS Aspart 35u BID at meals Pertinent Labs: 09/2021 HgA1c 7% GFR: 58 ml/min Cr: 1.32 mg/dl cholesterol 133 mg/dl LDL 53 mg/dl HDL; 60 mg/dl Past Medical History: (Last Updated 04/10/22 @ 14:55 by Gene Umana MD) BPH w urinary obs/LUTS Diabetic retinopathy Elevated PSA Erectile dysfunction due to diabetes mellitus Essential hypertension Family history of colon cancer in mother Medicare annual wellness visit, initial Mixed hyperlipidemia Obesity (BMI 30.0-34.9) Primary osteoarthritis involving multiple joints Seizure disorder Stage 3b chronic kidney disease (CKD) Type 2 diabetes mellitus with stage 3b chronic kidney disease Nutrition Rx: Carbohydrates: Meal:45-60g Snack:15-30g Nutrition Diagnosis: Inconsistent CHO intake r/t grazing in afternoon without insulin coverage aeb diet recall and pt report and hyperglycemia Intervention: This participant was very receptive. Provided appropriate educational handouts. Discussed the following topics: Blood sugar review and trends. Impact of food and insulin on results. Meal and snack plan Insulin TID CGM goals and process for rx Created SMART goals for patient self-care and success. Goals: Reduce novolog at breakfast and dinner- met/in progress Check BG 15 min after tx of low-met 1x/in progress Scan CGM 3 x per day or more- met Add oatmeal to breakfast instead of burritos- new Add Protein to breakfast- new Add lunch/snack mid day-new Take insulin TID (about 20u at breakfast and lunch unless otherwise specified by provider)- new Follow-up: KALPANA SEAMAN follow-up in 3-4 weeks Marietta Lira RDN, JURGEN Certified Diabetes Care and Bus Or Truck Garage Mechanic P: [phone] Thank you for this referral
== END ==
PROVIDERS: PCP Internal Medicine; Referring Provider Internal Medicine; Visit Provider Internal Medicine
DX: E11.9 Type 2 diabetes mellitus without complications (principal); Z79.4 Long term (current) use of insulin; Z71.3 Dietary counseling and surveillance
CPT/HCPCS: 97803

== ENCOUNTER → 2022-04-10 15:15 | Outpatient (CLI) | payer MEDICARE, OTHER, SELFPAY ==
[2022-04-10 15:57] LABS: Hemoglobin A1C% w Est Avg Glu 7.6 % (4.0-6.0)
[2022-04-10 15:58] LABS: BUN Creatinine Ratio 16.8 (6-22); Blood Urea Nitrogen 23 mg/dL (9-20); Calcium 8.9 mg/dL (8.4-10.2); Carbon Dioxide 24 mmol/L (22-32); Chloride 103 mmol/L (98-107); Estimated Glomerular Filt Rate 55 mL/min (>60); Glucose 257 mg/dL (80-110); HEMOLYSIS < 15 (0-50); Potassium 4.3 mmol/L (3.4-5.1); Sodium 136 mmol/L (137-145)
== END ==
PROVIDERS: PCP Internal Medicine; Referring Provider Internal Medicine; Visit Provider Internal Medicine
DX: E11.22 Type 2 diabetes mellitus with diabetic chronic kidney disease (principal); N18.32 Chronic kidney disease, stage 3b; Z79.4 Long term (current) use of insulin
CPT/HCPCS: 36415; 80048; 83036

== ENCOUNTER → 2022-05-22 12:53 | Outpatient (CLI) | payer MEDICARE, OTHER, SELFPAY ==
--- NOTE | 2022-06-05 17:08 | DIAB.FU ---
Follow-up Diabetes Education Assessment Name: John Perez (Isaiah) Date: 05/22/22 Time: 105-145p Dx: Type II Diabetes Isaiah presents for follow-up today regarding T2DM. States he feels he did better when using CGM. Needs [place] 2 paperwork filled out (not FSL3). RD to coordinate with provider. Has completed eye exam. Missed dental in January. Checks feet daily. Taking new BP med per report. Not checking BP at home currently. States he is still not having a regular lunch, and therefore is not taking mid day insulin dose, which with CGM showed elevations. States switching from two breakfast burritos to oatmeal makes him more hungry during the day. Wants more satisfying breakfast. Physical Activity: No program. Farm ADLs/chores. Self-Monitoring Blood Glucose: Will fill out CGM paperwork and coordinate with provider. Current FBG continues to be elevated. Recent FB, 143, 132, 175, 215, 164, 245 Diabetes Medications: Glargine 50u HS Aspart 20-30u 2-3x/day ac Pertinent Labs: HgA1c up from September of last year. 03/2021 HgA1c 7.6% GFR: 55 L Cr: 137 H 09/2021 HgA1c 7% GFR: 58 ml/min Cr: 1.32 mg/dl cholesterol 133 mg/dl LDL 53 mg/dl HDL; 60 mg/dl Past Medical History: (Last Updated 04/10/22 @ 14:55 by Gene Umana MD) BPH w urinary obs/LUTS Diabetic retinopathy Elevated PSA Erectile dysfunction due to diabetes mellitus Essential hypertension Family history of colon cancer in mother Medicare annual wellness visit, initial Mixed hyperlipidemia Obesity (BMI 30.0-34.9) Primary osteoarthritis involving multiple joints Seizure disorder Stage 3b chronic kidney disease (CKD) Type 2 diabetes mellitus with stage 3b chronic kidney disease Intervention: This participant was very receptive. Provided appropriate educational handouts. Discussed the following topics: Recent blood sugar results and trends Medication management: insulin titration Review of general nutrition recommendations and current intake Breakfast ideas lower in carb and sodium than frozen burritos CGM process and paperwork Prevention of complications: foot care, dental and eye appointments Created SMART goals for patient self-care and success. Goals: Add oatmeal to breakfast instead of burritos- met Add Protein to breakfast- met Add lunch/snack mid day-in progress Take insulin TID (about 20u at breakfast and lunch unless otherwise specified by provider)- in progress Add lunch regularly-new Take insulin at lunch- new Check BP at home- new Try eggs and toast for Breakfast- new Follow-up: KALPANA SEAMAN follow-up in 4 weeks Marietta Lira RDN, JURGEN Certified Diabetes Care and Glass Cut Off Supervisor P: [phone] Thank you for this referral
== END ==
PROVIDERS: PCP Internal Medicine; Referring Provider Internal Medicine; Visit Provider Internal Medicine
DX: E11.9 Type 2 diabetes mellitus without complications (principal); Z79.4 Long term (current) use of insulin; Z71.3 Dietary counseling and surveillance
CPT/HCPCS: G0108

== ENCOUNTER → 2022-06-25 14:08 | Outpatient (CLI) | payer MEDICARE, OTHER, SELFPAY ==
--- NOTE | 2022-07-09 16:50 | DIAB.FU ---
Follow-up Diabetes Education Assessment Name: John Perez (Isaiah) Date: 06/25/22 Time: 230-320p Dx: Type II Diabetes Isaiah presents today for placement of his personal CGM. Brought FSL2 Also reports he had to cancel eye appointment due to family event. Reports continued elevated BP. Plans to discuss with Lyndsay at f/u. Encouraged earlier report of BP to provider. States he has been eating late and skipping dinner insulin to avoid lows. Usually takes 38-40u meal time insulin at dinner. HS long acting 50u. Continues with higher carb and Na breakfast burritos. Takes 30-40u meal time insulin. Again endorses this meal keeps him more satiated and avoids lows; however this is likely due to having small snacks instead of actual meal during afternoon and high carb/kcal content of burritos. Historically has had high BG mid day due to snacking but not having lunch with insulin. Self-Monitoring Blood Glucose: Ran out of SMBG supplies. Plans to sweet pickled fruit maker today. Forgot meter. Reports FBG inthe 150s mg/dl. highest BG recently 260mg/dl. Brought CGM supplies today to place FSL2. Diabetes Medications: Glargine 50u HS Aspart 20-30u 2-3x/day ac Pertinent Labs: 03/2022 HgA1c 7.6% GFR: 55 L Cr: 137 H 09/2021 HgA1c 7% GFR: 58 ml/min Cr: 1.32 mg/dl cholesterol 133 mg/dl LDL 53 mg/dl HDL; 60 mg/dl Past Medical History: (Last Updated 04/10/22 @ 14:55 by Gene Umana MD) BPH w urinary obs/LUTS Diabetic retinopathy Elevated PSA Erectile dysfunction due to diabetes mellitus Essential hypertension Family history of colon cancer in mother Medicare annual wellness visit, initial Mixed hyperlipidemia Obesity (BMI 30.0-34.9) Primary osteoarthritis involving multiple joints Seizure disorder Stage 3b chronic kidney disease (CKD) Type 2 diabetes mellitus with stage 3b chronic kidney disease Intervention: This participant was very receptive. Provided appropriate educational handouts. Discussed the following topics: Recent blood sugar results and trends Medication management: trying to limit carbs and dec insulin in accordance Review of general nutrition recommendations and current intake H/o elevations mid day and how to manage with meals/insulin how to prevent lows with late dinner Educated Isaiah on how to place CGM. Review of alarms and use. He was able to place CGM successfully. Created SMART goals for patient self-care and success. Goals: Add lunch regularly-not met Take insulin at lunch- not met Check BP at home- met Try eggs and toast for Breakfast- not met Try different breakfasts and reduce insulin prn- new If eating late, instead of skipping insulin, try reduction- new Follow-up: KALPANA SEAMAN follow-up in 4-5 weeks Marietta Lira RDN, JURGEN Certified Diabetes Care and Health Practice Manager P: [phone] Thank you for this referral
== END ==
PROVIDERS: PCP Internal Medicine; Referring Provider Internal Medicine; Visit Provider Internal Medicine
DX: E11.9 Type 2 diabetes mellitus without complications (principal); Z79.4 Long term (current) use of insulin; Z71.3 Dietary counseling and surveillance
CPT/HCPCS: 95249

== ENCOUNTER → 2022-07-10 15:11 | Outpatient (CLI) | payer MEDICARE, OTHER, SELFPAY ==
[2022-07-10 18:09] LABS: BUN Creatinine Ratio 16.2 (6-22); Blood Urea Nitrogen 23 mg/dL (9-20); Calcium 8.9 mg/dL (8.4-10.2); Carbon Dioxide 26 mmol/L (22-32); Chloride 105 mmol/L (98-107); Estimated Glomerular Filt Rate 53 mL/min (>60); Glucose 194 mg/dL (80-110); HEMOLYSIS < 15 (0-50); Potassium 4.2 mmol/L (3.4-5.1); Sodium 139 mmol/L (137-145)
[2022-07-12 05:47] LABS: x Labcorp Estim. Avg Glu (eAG) 183 mg/dL (.)
[2022-07-12 07:42] LABS: Parathyroid Hormone, Intact 26 pg/mL (15-65)
== END ==
PROVIDERS: PCP Internal Medicine; Referring Provider Internal Medicine; Visit Provider Internal Medicine
DX: E11.22 Type 2 diabetes mellitus with diabetic chronic kidney disease (principal); N18.32 Chronic kidney disease, stage 3b
CPT/HCPCS: 80048; 82310; 83036; 83970

== ENCOUNTER → 2022-08-21 13:32 | Outpatient (CLI) | payer MEDICARE, OTHER, SELFPAY | PROVIDERS: PCP Internal Medicine; Visit Provider Specialist | DX: N40.1 Benign prostatic hyperplasia with lower urinary tract symptoms (principal); N13.8 Other obstructive and reflux uropathy; R97.20 Elevated prostate specific antigen [PSA]; E11.69 Type 2 diabetes mellitus with other specified complication; N52.1 Erectile dysfunction due to diseases classified elsewhere | CPT/HCPCS: 51798; 81002; 87086; 99214 ==

== ENCOUNTER → 2022-08-22 10:38 | Outpatient (CLI) | payer MEDICARE, OTHER, SELFPAY ==
--- NOTE | 2022-08-22 10:39 | DI.RAD.S_ITS ---
PROCEDURE: XR ANKLE LT MIN 3V INDICATIONS: Ankle pain TECHNIQUE: 3 views of the ankle were acquired. COMPARISON: [facility], CR, XR FOOT LT MIN 3V, 08/22/2022, 11:06. [facility], CR, ANKLE 3 VIEWS RIGHT, 05/13/2016, 16:09. FINDINGS: Bones: No fractures or dislocations. Ankle mortise is normally aligned. No suspicious bony lesions. Soft tissues: No tibiotalar joint effusion. Achilles tendon appears normal. IMPRESSION: No visualized acute fracture or dislocation. However, if clinical concern and/or pain persist, short interval imaging followup in 7-10 days is recommended, as occult injury cannot be definitively excluded. Dictated by: Deepti Alvares M.D. on 08/22/2022 at 14:20 Approved by: Deepti Alvares M.D. on 08/22/2022 at 14:20
--- NOTE | 2022-08-22 10:39 | DI.RAD.S_ITS ---
PROCEDURE: XR FOOT LT MIN 3V INDICATIONS: Foot pain TECHNIQUE: 3 views of the foot were acquired. COMPARISON: [facility], CR, XR ANKLE LT MIN 3V, 08/22/2022, 11:06. FINDINGS: Bones: No fractures or dislocations. No suspicious bony lesions. Soft tissues: No tibiotalar joint effusion. Small calcification is noted posterior to the calcaneus overlying the soft tissues. This could be related to focus of potentially old avulsion injury given lack of edema. IMPRESSION: No visualized acute fracture or dislocation. However, if clinical concern and/or pain persist, short interval imaging followup in 7-10 days is recommended, as occult injury cannot be definitively excluded. Dictated by: Deepti Alvares M.D. on 08/22/2022 at 14:20 Approved by: Deepti Alvares M.D. on 08/22/2022 at 14:22
== END ==
PROVIDERS: PCP Internal Medicine; Referring Provider Nurse Practitioner Family; Visit Provider Nurse Practitioner Family
DX: M79.672 Pain in left foot (principal)
CPT/HCPCS: 73610; 73630

== ENCOUNTER → 2022-10-10 14:31 | Outpatient (CLI) | payer MEDICARE, OTHER, SELFPAY ==
[2022-10-10 15:30] LABS: Hematocrit 43.3 % (41-53); Hemoglobin 14.5 g/dL (13.5-17.5)
[2022-10-10 15:39] LABS: Hemoglobin A1C% w Est Avg Glu 6.8 % (4.0-6.0)
[2022-10-10 16:03] LABS: Creatinine Urine Random 158.4 mg/dL
[2022-10-10 16:06] LABS: Blood Urea Nitrogen 27 mg/dL (9-20); Carbon Dioxide 24 mmol/L (22-32); Chloride 110 mmol/L (98-107); Cholesterol 132 mg/dL (140-199); Estimated Glomerular Filt Rate 53 mL/min (>60); Glucose 170 mg/dL (80-110); HDL Cholesterol 56 mg/dL (40-60); HEMOLYSIS < 15 (0-50); LDL Cholesterol Calculated 56 mg/dL (<100); Potassium 4.1 mmol/L (3.4-5.1); Sodium 140 mmol/L (137-145); Triglycerides 101 mg/dL (35-150)
[2022-10-10 16:07] LABS: Microalbumi Creatinin Ratio Ur 18.3 ug/mg CR (<30); Microalbumin Urine Random 2.9 mg/dL (0-1.6)
== END ==
PROVIDERS: PCP Internal Medicine; Referring Provider Internal Medicine; Visit Provider Internal Medicine
DX: E11.22 Type 2 diabetes mellitus with diabetic chronic kidney disease (principal); N18.32 Chronic kidney disease, stage 3b; I10 Essential (primary) hypertension; Z79.4 Long term (current) use of insulin; E78.2 Mixed hyperlipidemia; Z86.010 Personal history of colon polyps
CPT/HCPCS: 36415; 80048; 80061; 82043; 82570; 83036; 85014; 85018

== ENCOUNTER → 2023-03-27 12:04 | Outpatient (CLI) | payer MEDICARE, OTHER, SELFPAY ==
[2023-03-27 12:50] LABS: BUN Creatinine Ratio 16.4 (6-22); Blood Urea Nitrogen 23 mg/dL (9-20); Calcium 9.1 mg/dL (8.4-10.2); Carbon Dioxide 24 mmol/L (22-32); Chloride 108 mmol/L (98-107); Estimated Glomerular Filt Rate 53 mL/min (>60); Glucose 59 mg/dL (80-110); HEMOLYSIS < 15 (0-50); Hemoglobin A1C% w Est Avg Glu 7.3 % (4.0-6.0); Potassium 4.1 mmol/L (3.4-5.1); Sodium 141 mmol/L (137-145)
== END ==
LOC: LAB 12:05
PROVIDERS: PCP Internal Medicine; Referring Provider Internal Medicine; Visit Provider Internal Medicine
DX: E11.22 Type 2 diabetes mellitus with diabetic chronic kidney disease (principal); N18.32 Chronic kidney disease, stage 3b
CPT/HCPCS: 36415; 80048; 83036

== ENCOUNTER 2023-05-23 14:05 | Emergency (ER) | payer MEDICARE, OTHER, SELFPAY ==
[2023-05-23] VITALS (9 sets, daily range): BP systolic 136–170; BP diastolic 64–80; PULSE 69–88; RESP 14–22; TEMP 36.5; O2SAT 96–98; BMI 31.2
--- NOTE | 2023-05-23 14:19 | DI.RAD.S_ITS ---
PROCEDURE: XR CHEST 1V INDICATIONS: Shortness of breath TECHNIQUE: One view of the chest was acquired. COMPARISON: CR, CHEST 2VW, 06/18/2011, 13:25. [facility], CR, XR CHEST 1V, 01/13/2022, 8:32. FINDINGS: Surgical changes and devices: None. Lungs and pleura: Lungs are mildly abnormal with a mild chronic interstitial prominence unchanged from prior studies.. No pleural effusions or pneumothorax. Mediastinum: Mediastinal contours appear normal. Heart size is normal. Bones and chest wall: No suspicious bony lesions. Overlying soft tissues appear unremarkable. IMPRESSION: Chronic interstitial prominence, no acute disease. Dictated by: Segun Linares M.D. on 05/23/2023 at 15:10 Approved by: Segun Linares M.D. on 05/23/2023 at 15:11
[2023-05-23 14:34] LABS: Add Manual Diff / Slide Review NO; Basophils Absolute Auto 0 /uL (0-100); Basophils Percent Auto 0.8 % (0-2); Eosinophils Absolute Auto 100 /uL (0-450); Eosinophils Percent Auto 2.5 % (2-4); Hematocrit 43.3 % (41-53); Hemoglobin 14.4 g/dL (13.5-17.5); Lymphocytes Absolute Auto 1100 /uL (1100-4500); Mean Corpuscular HGB Conc 33.2 % (30-36); Mean Corpuscular Hemoglobin 29.1 PG (26-34); Mean Corpuscular Volume 87.7 fL (80-100); Monocytes Absolute Auto 500 /uL (0-900); Monocytes Percent Auto 9.7 % (3-14); Neutrophils Absolute Auto 3200 /uL (1500-7000); Platelet Count 155 X10^3/uL (150-400); Red Blood Cell Count 4.94 X10^6/uL (4.5-5.9); Red Cell Distribution Width 13.2 % (11.6-14.8)
[2023-05-23 14:40] LABS: INR 1.1 (0.9-1.3); Prothrombin Time 12.1 SECONDS (9.4-12.5)
[2023-05-23 14:45] LABS: Alanine Aminotransferase 19 IU/L (<50); Albumin 3.7 g/dL (3.5-5.0); Albumin Globulin Ratio 1.4 (1.0-2.8); Alkaline Phosphatase 87 U/L (38-126); Aspartate Aminotransferase 19 IU/L (17-59); Bilirubin Total 0.6 mg/dL (0.2-1.3); Blood Urea Nitrogen 24 mg/dL (9-20); Calcium 8.9 mg/dL (8.4-10.2); Carbon Dioxide 24 mmol/L (22-32); Chloride 106 mmol/L (98-107); Estimated Glomerular Filt Rate 49 mL/min (>60); Globulin 2.7 g/dL (1.7-4.1); Glucose 168 mg/dL (80-110); HEMOLYSIS < 15 (0-50); Lactate (Lactic Acid) 0.9 mmol/L (0.7-2.1); Potassium 4.2 mmol/L (3.4-5.1); Sodium 136 mmol/L (137-145); Total Protein 6.4 g/dL (6.3-8.2)
[2023-05-23 14:56] LABS: NT-proBNP (BNP-Adult 18+) 45 pg/mL (<125); Troponin I < 0.012 ng/mL (0.01-0.034)
--- NOTE | 2023-05-23 15:00 | ED.SOB ---
HPI - SOB/Dyspnea General Chief Complaint: Shortness of Breath/Dyspnea Stated Complaint: SOB/GLF T-3/ pos. pulmonary embolism/ disoriented Time Seen by Provider: 05/23/23 14:36 Source: patient Mode of arrival: Ambulatory Limitations: no limitations History of Present Illness HPI Narrative: Patient 72-year-old male history of diabetes diabetic retinopathy, seizures well-controlled hypertension hyperlipidemia, chronic kidney disease, BPH presents today with generalized weakness and increasing falls. He states that he just feels like his legs are giving out on him he feels just overall weak. He denies any chest pain shortness of breath. He did fall into a TV and has some pain on his right rib. No numbness tingling or weakness. No facial droop. He denies any fever chills or cough no abdominal pain nausea or vomiting. Related Data Home Medications Medication Instructions Recorded Confirmed cholecalciferol (vitamin D3) 50 1 cap PO DAILY 06/22/18 03/27/23 mcg (2,000 unit) capsule (Vitamin D3) lamotrigine 200 mg tablet 450 mg PO BID 03/27/23 03/27/23 Previous Rx's Medication Instructions Recorded atorvastatin 20 mg tablet 20 mg PO DAILY #90 tabs 02/28/22 topiramate 200 mg tablet 200 mg PO BID #180 tabs 04/10/22 tamsulosin 0.4 mg capsule 0.4 mg PO ONCE PM #90 caps 10/30/22 losartan 100 mg tablet 100 mg PO DAILY #90 tabs 04/07/23 amlodipine 5 mg tablet 5 mg PO DAILY #90 tabs 04/11/23 insulin aspart U-100 100 unit/mL 20 unit (0.2 mL) SUBCUT TIDWMEAL 04/11/23 (3 mL) subcutaneous pen (Novolog #15 mL FlexPen U-100 Insulin aspart) insulin glargine 100 unit/mL (3 70 unit (0.7 mL) SUBCUT QPM #15 mL 05/02/23 mL) subcutaneous pen (Basaglar KwikPen U-100 Insulin) Allergies Allergy/AdvReac Type Severity Reaction Status Date / Time finasteride AdvReac Mild breast pain Verified 03/27/23 10:25 Patient History Medical History Family history of colon cancer in mother Primary osteoarthritis involving multiple joints Obesity (BMI 30.0-34.9) Diabetic retinopathy Stage 3b chronic kidney disease (CKD) Mixed hyperlipidemia Essential hypertension Type 2 diabetes mellitus with stage 3b chronic kidney disease Erectile dysfunction due to diabetes mellitus BPH w urinary obs/LUTS Elevated PSA Seizure disorder Surgical History Hx of prostate biopsy Family History Father Diabetes mellitus Grandfather Diabetes mellitus Social History marital status: details: three adopted children, 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: spouse Smoking Status: Never smoker alcohol intake: never caffeine: Yes Smoking Status: Never smoker Substance Use Type: does not use Exam Initial Vital Signs Initial Vital Signs: Vital Signs Temperature 97.7 F 05/23/23 14:12 Pulse Rate 84 05/23/23 14:12 Respiratory Rate 20 05/23/23 14:12 Blood Pressure 149/71 H 05/23/23 14:12 Pulse Oximetry 97 05/23/23 14:12 Oxygen Delivery Method Room Air 05/23/23 14:12 GENERAL: Alert 72-year-old male appears generally weak HEENT: Head atraumatic,EOMI, pupils reactive, face symmetric, [moist] mucous membranes CARDIOVASCULAR: Regular rate and rhythm without murmurs, rubs or gallops. RESPIRATORY: Breath sounds equal bilaterally, no wheezes rales or rhonchi. ABDOMEN: Soft, nontender. Normoactive bowel sounds all 4 quadrants. No guarding or rebound. EXTREMITIES: Normal range of motion, no clubbing or edema. Neurovascularly intact NEUROLOGICAL: Alert and oriented x4.Normal gait and speech. Slurry Man strength equal bilaterally able to lift legs off gurney without difficulty no facial droop no aphasia or dysarthria SKIN: Warm, dry, no laceration, no petechiae, no rashes or lesions. Scores NIH Stroke Scale Level of Conciousness: Alert, keenly responsive Ask month/age: Answers both questions correctly. Open/close eyes, close hand: Performs both tasks correctly Best gaze horizontal: Normal Visual davies: No visual loss Facial palsy: Normal symetrical movement Left arm drift: No drift for full 10 sec Right arm drift: No drift for full 10 sec Left leg drift: No drift for full 5 sec Right leg drift: No drift for full 5 sec Limb ataxia: Absent Sensory on face/arms/legs: Normal, no sensory loss Best language: No aphasia, normal Dysarthria: Normal Extinction or inattention: No abnormality Total NIH Stroke scale score: 0 Course Orders Ordered: ED Orders 05/23/23 14:19 XR chest 1V Stat EKG-12 Lead Stat Measure peak expiratory flow ONCE RT Consult Eval and Treat NOW 05/23/23 14:20 Complete Blood Count AUTO DIFF Stat Comprehensive Metabolic Panel Stat Lactate (Lactic Acid) Stat NT-proBNP (BNP-Adult 18+) Stat Prothrombin Time INR Stat Troponin I Stat 05/23/23 14:29 Respiratory Panel (Film Array) Stat 05/23/23 15:06 CT head/brain wo con Stat Discontinued Medications Sodium Chloride (Normal Saline 0.9%) 1,000 mls @ 1,000 mls/hr IV BOLUS ONE Stop: 05/23/23 16:06 Last Infusion: 05/23/23 16:32 Dose: Infused Documented By: Admin: 05/23/23 15:45 Dose: 1,000 mls/hr Documented By: KRYSTLE Vital Signs Vital signs: Vital Signs - 8 hr 05/23/23 14:12 05/23/23 14:34 05/23/23 14:35 Temperature 97.7 F Pulse Rate 84 83 Respiratory Rate 20 16 Blood Pressure 149/71 H 145/79 H Pulse Oximetry 97 97 Oxygen Delivery Method Room Air Room Air 05/23/23 14:35 05/23/23 15:00 05/23/23 15:00 Temperature Pulse Rate 85 79 Respiratory Rate 15 Blood Pressure 136/64 Pulse Oximetry 97 96 Oxygen Delivery Method Room Air 05/23/23 15:20 05/23/23 15:20 05/23/23 15:30 Temperature Pulse Rate 75 76 Respiratory Rate 14 18 Blood Pressure 142/67 H Pulse Oximetry 97 96 Oxygen Delivery Method 05/23/23 15:30 05/23/23 16:00 05/23/23 16:00 Temperature Pulse Rate 71 Respiratory Rate 22 Blood Pressure 146/68 H 136/66 Pulse Oximetry 96 Oxygen Delivery Method Room Air 05/23/23 16:30 05/23/23 16:35 05/23/23 16:35 Temperature Pulse Rate 71 88 69 Respiratory Rate 20 18 Blood Pressure Pulse Oximetry 96 98 97 Oxygen Delivery Method 05/23/23 16:35 Temperature Pulse Rate Respiratory Rate Blood Pressure 170/80 H Pulse Oximetry Oxygen Delivery Method Room Air MDM - SOB/Dyspnea Lab Data 05/23/23 14:20 05/23/23 14:20 Labs: Lab Results 05/23/23 05/23/23 Range/Units 14:20 14:29 WBC 5.0 (4.5-11.0) X10^3/uL RBC 4.94 (4.5-5.9) X10^6/uL Hgb 14.4 (13.5-17.5) g/dL Hct 43.3 (41-53) % MCV 87.7 (80-100) fL MCH 29.1 (26-34) PG MCHC 33.2 (30-36) % RDW 13.2 (11.6-14.8) % Plt Count 155 (150-400) X10^3/uL Neut % (Auto) 64.0 (50-75) % Lymph % (Auto) 23.0 L (25-40) % Trinity % (Auto) 9.7 (3-14) % Eos % (Auto) 2.5 (2-4) % Baso % (Auto) 0.8 (0-2) % Neut # (Auto) 3200 (6758-0378) /uL Lymph # (Auto) 1100 (4973-9365) /uL Trinity # (Auto) 500 (0-900) /uL Eos # (Auto) 100 (0-450) /uL Baso # (Auto) 0 (0-100) /uL PT 12.1 (9.4-12.5) SECONDS INR 1.1 (0.9-1.3) Sodium 136 L (137-145) mmol/L Potassium 4.2 (3.4-5.1) mmol/L Chloride 106 (98-107) mmol/L Carbon Dioxide 24 (22-32) mmol/L BUN 24 H (9-20) mg/dL Creatinine 1.50 H (0.66-1.25) mg/dL Estimated GFR 49 L (>60) mL/min BUN/Creatinine Ratio 16.0 (6-22) Glucose 168 H (80-110) mg/dL Lactate 0.9 (0.7-2.1) mmol/L Calcium 8.9 (8.4-10.2) mg/dL Total Bilirubin 0.6 (0.2-1.3) mg/dL AST 19 (17-59) IU/L ALT 19 (<50) IU/L Alkaline Phosphatase 87 (38-126) U/L Troponin I < 0.012 (0.01-0.034) ng/mL NT-Pro-B Natriuret Pep 45 (<125) pg/mL Total Protein 6.4 (6.3-8.2) g/dL Albumin 3.7 (3.5-5.0) g/dL Globulin 2.7 (1.7-4.1) g/dL Albumin/Globulin Ratio 1.4 (1.0-2.8) Chlamy pneumoniae PCR Not detected (Not Detect) Adenovirus (PCR) Not detected (Not Detect) B.parapertussis DNA PCR Not detected (Not Detecte) Coronavirus OC43 (PCR) Not detected (Not Detect) Coronavirus HKU1 (PCR) Not detected (Not Detect) Coronavirus 229E (PCR) Not detected (Not Detect) SARS-CoV-2 (PCR) Not detected (Not Detecte) Coronavirus NL63 (PCR) Not detected (Not Detect) Human Metapneumovir PCR Not detected (Not Detect) Influenza Type A (PCR) Not detected (Not Detect) Influenza Type B (PCR) Not detected (Not Detect) M. pneumoniae (PCR) Not detected (Not Detect) Parainfluenza 1 (PCR) Not detected (Not Detect) Parainfluenza 2 (PCR) Not detected (Not Detect) Parainfluenza 3 (PCR) Not detected (Not Detect) Parainfluenza 4 (PCR) Not detected (Not Detect) RSV (PCR) Not detected (Not Detect) Entero/Rhino (PCR) Not detected (Not Detect) Urine Dip Bedside Urine Glucose Negative Bedside Urine Bilirubin - Negative Bedside Urine Ketone - Negative Urine Specific [place] 1.020 Bedside Urine Occult Blood - Negative Bedside Urine pH 6.0 Bedside Urine Protein - Negative Bedside Urine Urobilinogen - Negative Bedside Urine Nitrite - Negative Bedside Urine Leukocytes - Negative Esterase Imaging Data Chest x-ray: Radiologist's Impression: PROCEDURE: XR CHEST 1V INDICATIONS: Shortness of breath TECHNIQUE: One view of the chest was acquired. COMPARISON: CR, CHEST 2VW, 06/18/2011, 13:25. [facility], CR, XR CHEST 1V, 01/13/2022, 8:32. FINDINGS: Surgical changes and devices: None. Lungs and pleura: Lungs are mildly abnormal with a mild chronic interstitial prominence unchanged from prior studies.. No pleural effusions or pneumothorax. Mediastinum: Mediastinal contours appear normal. Heart size is normal. Bones and chest wall: No suspicious bony lesions. Overlying soft tissues appear unremarkable. IMPRESSION: Chronic interstitial prominence, no acute disease. Dictated by: Segun Linares M.D. on 05/23/2023 at 15:10 CT scan - head: Radiologist's Impression: PROCEDURE: CT HEAD/BRAIN WO CON INDICATIONS: falling TECHNIQUE: Noncontrast 4.5 mm thick angled axial sections acquired from the foramen magnum to the vertex, with coronal and sagittal reformats. For radiation dose reduction, the following was used: automated exposure control, adjustment of mA and/or kV according to patient size. COMPARISON: None. FINDINGS: Image quality: Diagnostic. CSF spaces: Basal cisterns are patent. No extra-axial fluid collections. The ventricles are symmetric in size and shape. Brain: No intracranial bleeds or masses. There is cerebral volume loss for age, with resultant ventricular and sulcal prominence. There are periventricular and deep white matter chronic small vessel ischemic changes. There is intracranial internal carotid artery atherosclerosis. Skull and face: Calvarium and visualized facial bones appear intact, without suspicious lesions. Sinuses: Visualized sinuses and mastoids are clear. IMPRESSION: No acute intracranial pathology. Dictated by: Segun Linares M.D. on 05/23/2023 at 15:33 ECG Data Attestation: I personally reviewed and interpreted this ECG as follows: Interpretation: Sinus rhythm rate 82 AZ interval 240 QRS 154 QTC 464 right bundle-branch block noted no acute ischemia similar to prior MDM Narrative Medical decision making narrative: MDM CC: Weakness Complicating co-morbidities: Hyperlipidemia, hypertension, diabetes Corroborating data: Data collected from: Patient and chart Medical records reviewed: [ ] Differential considered: Stroke, infection, pneumothorax, pneumonia Exam documented above, pertinent findings include: Mild tenderness on right side of ribs NIH stroke scale 0 Lab Test results independently reviewed as above. Pertinent findings: WBC 5.0 hemoglobin 14.4 hematocrit 43.3 platelets 165, sodium 136 potassium 4.2, chloride 106 carbon dioxide 24 BUN 24, creatinine 1.5, glucose 168, troponin negative, urinalysis negative Independently reviewed EKG as above persistent right bundle-branch block without ischemia Imaging studies independently reviewed: Chest x-ray no acute cardiopulmonary process, head CT noncontrast no intracranial hemorrhage or mass Consultations: None Treatments: IV fluids Re-evaluations: Patient ambulated in the ED without any sort of difficulty Discussion: Patient complains of weakness and falls. Blood work is overall reassuring baseline creatinine is 1.4 today is 1.5 he received some IV fluids. Imaging is reassuring as well. No clear cause for his increased weakness. Was able to ambulate unassisted to the restroom. No obvious cause of infection no definite focal deficits. At this time recommend that he stay hydrated and return as needed. Discharge Plan Departure Patient Disposition: Home Clinical Impression: Weakness Instructions: DI for Muscle Weakness Activity Restrictions/Additional Instructions: *You have been diagnosed with weakness *What to do: At this time you may be a little dehydrated, encourage you to drink more water less coffee continue to eat. *Continue to take medications as directed *Follow up with your primary care provider in 2-3 days or call [phone] *Return to ER if you should have increasing falls, or any new, worsening or concerning symptoms Prescriptions: No Action atorvastatin 20 mg tablet 20 mg PO DAILY Qty: 90 3RF tamsulosin 0.4 mg capsule 0.4 mg PO ONCE PM Qty: 90 2RF losartan 100 mg tablet 100 mg PO DAILY Qty: 90 3RF amlodipine 5 mg tablet 5 mg PO DAILY Qty: 90 3RF insulin aspart U-100 [Novolog FlexPen U-100 Insulin] 100 unit/mL (3 mL) insulin pen 20 unit SUBCUT TIDWMEAL Qty: 15 5RF insulin glargine [Basaglar KwikPen U-100 Insulin] 100 unit/mL (3 mL) insulin pen 70 unit SUBCUT QPM Qty: 15 3RF topiramate 200 mg tablet 200 mg PO BID Qty: 180 3RF lamotrigine 200 mg tablet 450 mg PO BID cholecalciferol (vitamin D3) [Vitamin D3] 2,000 unit Capsule 1 cap PO DAILY Referrals: Gene Umana MD [Primary Care Provider] - Stand Alone Forms: Patient Portal/API
--- NOTE | 2023-05-23 15:06 | DI.CT.S_ITS ---
PROCEDURE: CT HEAD/BRAIN WO CON INDICATIONS: falling TECHNIQUE: Noncontrast 4.5 mm thick angled axial sections acquired from the foramen magnum to the vertex, with coronal and sagittal reformats. For radiation dose reduction, the following was used: automated exposure control, adjustment of mA and/or kV according to patient size. COMPARISON: None. FINDINGS: Image quality: Diagnostic. CSF spaces: Basal cisterns are patent. No extra-axial fluid collections. The ventricles are symmetric in size and shape. Brain: No intracranial bleeds or masses. There is cerebral volume loss for age, with resultant ventricular and sulcal prominence. There are periventricular and deep white matter chronic small vessel ischemic changes. There is intracranial internal carotid artery atherosclerosis. Skull and face: Calvarium and visualized facial bones appear intact, without suspicious lesions. Sinuses: Visualized sinuses and mastoids are clear. IMPRESSION: No acute intracranial pathology. Dictated by: Segun Linares M.D. on 05/23/2023 at 15:33 Approved by: Segun Linares M.D. on 05/23/2023 at 15:34
[2023-05-23 15:30] LABS: Adenovirus Not Detected (Not Detect); B. parapertussis Not Detected (Not Detecte); Bordetella pertussis Not Detected (Not Detect); Chlamydophila pneumoniae Not Detected (Not Detect); Coronavirus 229E Not Detected (Not Detect); Coronavirus HKU1 Not Detected (Not Detect); Coronavirus NL 63 Not Detected (Not Detect); Coronavirus OC43 Not Detected (Not Detect); Human Metapneumovirus Not Detected (Not Detect); Human Rhinovirus/Enterovirus Not Detected (Not Detect); Influenza A Not Detected (Not Detect); Influenza B Not Detected (Not Detect); Mycoplasma pneumoniae Not Detected (Not Detect); Parainfluenza Virus 1 Not Detected (Not Detect); Parainfluenza Virus 2 Not Detected (Not Detect); Parainfluenza Virus 3 Not Detected (Not Detect); Parainfluenza Virus 4 Not Detected (Not Detect); Respiratory Syncytial Virus Not Detected (Not Detect); SARS- CoV-2 Not Detected (Not Detecte)
[2023-05-23] MEDS: SODIUM CHLORIDE 0.9% 1,000 ML 1000 ML IV (15:45)
== END 2023-05-23 17:20 | disposition home or self-care (01) ==
PROVIDERS: Emergency Provider Emergency Medicine; PCP Internal Medicine
DX: R53.1 Weakness (principal); I45.10 Unspecified right bundle-branch block; R29.6 Repeated falls; R06.02 Shortness of breath; Z79.899 Other long term (current) drug therapy
CPT/HCPCS: 36415; 70450; 71045; 80053; 81003; 83605; 83880; 84484; 85025; 85610; 87633; 93005; 93010; 96360; 99284

== ENCOUNTER → 2023-06-26 14:09 | Outpatient (CLI) | payer MEDICARE, OTHER, SELFPAY ==
[2023-06-26 14:45] LABS: Hemoglobin A1C% w Est Avg Glu 7.2 % (4.0-6.0)
[2023-06-26 14:53] LABS: BUN Creatinine Ratio 17.4 (6-22); Blood Urea Nitrogen 27 mg/dL (9-20); Calcium 9.1 mg/dL (8.4-10.2); Carbon Dioxide 24 mmol/L (22-32); Chloride 112 mmol/L (98-107); Estimated Glomerular Filt Rate 47 mL/min (>60); Glucose 123 mg/dL (80-110); HEMOLYSIS < 15 (0-50); Potassium 4.2 mmol/L (3.4-5.1); Sodium 142 mmol/L (137-145)
== END ==
PROVIDERS: PCP Internal Medicine; Referring Provider Internal Medicine; Visit Provider Internal Medicine
DX: E11.22 Type 2 diabetes mellitus with diabetic chronic kidney disease (principal); N18.32 Chronic kidney disease, stage 3b
CPT/HCPCS: 80048; 83036

== ENCOUNTER 2023-07-02 13:42 | Emergency (ER) | payer OTHER, MEDICARE, SELFPAY ==
[2023-07-02 13:45] VITALS: BP 176/76; PULSE 90; RESP 16; TEMP 37.1; O2SAT 97; BMI 32.3
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
[2023-07-02 15:04] VITALS: BP 138/63; PULSE 78; O2SAT 97
== END 2023-07-02 15:04 | disposition home or self-care (01) ==
PROVIDERS: Emergency Provider Emergency Medicine; PCP Internal Medicine
DX: S16.1XXA Strain of muscle, fascia and tendon at neck level, initial encounter (principal); M79.602 Pain in left arm; V43.52XA Car driver injured in collision with other type car in traffic accident, initial encounter; Y92.410 Unspecified street and highway as the place of occurrence of the external cause
CPT/HCPCS: 72125; 73030; 99283; 99284

== ENCOUNTER → 2023-08-14 12:51 | Outpatient (CLI) | payer MEDICARE, OTHER, SELFPAY ==
--- NOTE | 2023-08-29 07:53 | DIAB.INIT ---
Initial Diabetes Education Assessment Name: John Perez (Isaiah) Date: 08/14/23 Time: 1-145p Dx: Type II Diabetes Isaiah presents for Dm visit, familiar to this RD from our visits in 2022. Last visit 06/2022. Reports he is using FSL3. BP improved per report as well. His main concern today his low BG daily. Reports chasing these lows with junk food ie PBJ and cookies, which then take long to bring his BG up. Needing review of Rule of 15 for lows. Symptoms of lows; fatigue, confused, weak. Sometimes lows occur with meals that have zero carb, ie just a steak. Anthropometrics: Ht: 6'3 Wt: 257# Physical Activity: Not discussed today Self-Monitoring Blood Glucose: Per CGm reports, has had a low 5x over two weeks. Then after treating with a number of foods will often have an elevation. TIR: 14% very high 29% high 56% in range 1% low 0% very low Av mg/dl GMI 7.5% variability: 36% Diabetes Medications: 70u Glargine 28-30u Aspart BID Pertinent Labs: HgA1c: 7.3% 03/2023 7.2% 06/2023 Past Medical History: (Last Reviewed 08/27/23 @ 14:14 by Jacinta Cota MD) BPH w urinary obs/LUTS Diabetic retinopathy Elevated PSA Erectile dysfunction due to diabetes mellitus Essential hypertension Family history of colon cancer in mother Mixed hyperlipidemia Obesity (BMI 30.0-34.9) Primary osteoarthritis involving multiple joints Seizure disorder Stage 3b chronic kidney disease (CKD) Type 2 diabetes mellitus with stage 3b chronic kidney disease Intervention: This participant was very receptive. Provided appropriate educational handouts. Discussed the following topics: Completed intake assessment. Reviewed Rule of 15 for lows and using quick acting sugar for tx Discussed dosing of mealtime insulin, especially when no CHO at meal Encouraged food journal over the next couple weeks to compare with BG logs Created SMART goals for patient self-care and success. Goals: buy glucose tabs or other quick acting sugar for low tx If not having CHO at dinner half insulin dose Keep food journal Follow-up: KALPANA SEAMAN follow-up in 2-3 weeks Marietta Lira RDN, J[employer] Certified Diabetes Care and [employer] P: [phone] Thank you for this referral
== END ==
PROVIDERS: PCP Internal Medicine; Referring Provider Internal Medicine
DX: E11.9 Type 2 diabetes mellitus without complications (principal); Z71.3 Dietary counseling and surveillance; Z79.4 Long term (current) use of insulin
CPT/HCPCS: G0108

== ENCOUNTER → 2023-09-05 14:56 | Outpatient (CLI) | payer MEDICARE, OTHER, SELFPAY ==
--- NOTE | 2023-09-18 15:45 | DIAB.MNTFU ---
Follow-up Diabetes Medical Nutrition Therapy Assessment Name: John Perez (Isaiah) Date: 09/05/23 Time: 315-350p Dx: Type II Diabetes Isaiah presents for Dm visit. Has been adjusting his glargine -- if BG is under 130mg/dl, does not take it. States this seems to reduce evening lows. Trying to adjust dinner insulin if no carbs. Some days skips lunch and afternoon snack. Limited veggies during the day. Only with dinner. Cut out pizza in the afternoon. Sometimes endorses elevations in evening due to ice cream. Anthropometrics: Ht: 6'3 Wt: 257# Physical Activity: ADLs and PT for his back Self-Monitoring Blood Glucose: Having less low BG and less numbers >250mg/dl. In goal for TIR with >70%. Now treating lows appropriately to get out of low state quickly. Having some 60s mg/dl, which seem to result from long periods of time without eating, like when going out for medical appts. Today TIR: 4% very high 22% high 74% in range 0% low 0% very low Av mg/dl GMI 7.0% variability: 30.4% Last TIR: 14% very high 29% high 56% in range 1% low 0% very low Av mg/dl GMI 7.5% variability: 36% Diabetes Medications: 0-70u Glargine 28-30u Aspart BID Pertinent Labs: HgA1c: 7.3% 03/2023 7.2% 06/2023 Past Medical History: (Last Reviewed 08/27/23 @ 14:14 by Jacinta Cota MD) BPH w urinary obs/LUTS Diabetic retinopathy Elevated PSA Erectile dysfunction due to diabetes mellitus Essential hypertension Family history of colon cancer in mother Mixed hyperlipidemia Obesity (BMI 30.0-34.9) Primary osteoarthritis involving multiple joints Seizure disorder Stage 3b chronic kidney disease (CKD) Type 2 diabetes mellitus with stage 3b chronic kidney disease Nutrition Rx: Carbohydrates: Meal:45-60g Snack:15-30g Nutrition Diagnosis: Inconsistent energy intake r/t changes in schedule causing skipped mid day intake aeb BG <70 mg/dl and pt report Inadequate fiber intake r/t limited veggies in diet aeb pt report of only veggies at dinner Intervention: This participant was very receptive. Provided appropriate educational handouts. Discussed the following topics: Blood sugar review and trends. Impact of food intake and skipping meals/snacks on results. Consistent intake Portion recs Strategies for adding veggies Reducing insulin if not eating carbs at a meal Spreading out carbs to avoid elevations Created SMART goals for patient self-care and success. Goals: buy glucose tabs or other quick acting sugar for low tx- met If not having CHO at dinner half insulin dose- in progress Keep food journal- not met Add 1p snack- new Add salad to dinner- new Follow-up: KALPANA SEAMAN follow-up in 3-4 weeks Marietta Lira RDN, [facility] Certified [facility] and [place] P: [phone] Thank you for this referral
== END ==
PROVIDERS: PCP Internal Medicine; Referring Provider Internal Medicine
DX: E11.9 Type 2 diabetes mellitus without complications (principal); Z79.4 Long term (current) use of insulin; Z71.3 Dietary counseling and surveillance
CPT/HCPCS: 97803

== ENCOUNTER → 2023-10-01 15:49 | Outpatient (CLI) | payer MEDICARE, OTHER, SELFPAY ==
--- NOTE | 2023-11-27 09:30 | DIAB.FU ---
Follow-up Diabetes Education Assessment Name: John Perez (Isaiah) Date: 10/01/23 Time: 4-5p Dx: Type II Diabetes Isaiah presents for Dm visit. Endorses taking the wrong insulin this morning-- slow instead of quick. Changed insulin brands and this contributed to the mix up. Also endorses some hypoglycemia from working on house projects and then not eating until done. Symptoms include fogginess, weakness, fatigue. Often working outside alone, though lives with . May benefit from glucagon rx. Examined injection site, which seems to have scar tissue. Is injecting in the same place each time. Anthropometrics: Ht: 6'3 Wt: 257# Physical Activity: ADLs and PT for his back Self-Monitoring Blood Glucose: increased hyperglycemia and lows recently. Lower time in range, below goal of 70%+. Today TIR: 6% very high 29% high 64% in range 1% low 0% very low Av mg/dl GMI 7.3% variability: 30.9% Last TIR: 4% very high 22% high 74% in range 0% low 0% very low Av mg/dl GMI 7.0% variability: 30.4% Diabetes Medications: 70u Glargine 24-25u Aspart BID Pertinent Labs: HgA1c: 7.3% 03/2023 7.2% 06/2023 Past Medical History: (Last Reviewed 08/27/23 @ 14:14 by Jacinta Cota MD) BPH w urinary obs/LUTS Diabetic retinopathy Elevated PSA Erectile dysfunction due to diabetes mellitus Essential hypertension Family history of colon cancer in mother Mixed hyperlipidemia Obesity (BMI 30.0-34.9) Primary osteoarthritis involving multiple joints Seizure disorder Stage 3b chronic kidney disease (CKD) Type 2 diabetes mellitus with stage 3b chronic kidney disease Intervention: This participant was very receptive. Provided appropriate educational handouts. Discussed the following topics: Blood sugar review and trends. Impact of food intake and skipping meals/snacks on results. Consistent intake Marking pens to avoid insulin pen confusion and incorrect doses Role of glucagon Injection techniques and scar tissue Created SMART goals for patient self-care and success. Goals: Add 1p snack- +/- Add salad to dinner- in progress Dominguez insulin pens- new Keep log of food and insulin doses- new Follow-up: KALPANA SEAMAN follow-up in 3-4 weeks Marietta Lira RDN, [facility] Certified Diabetes Care and Utility Tender [employer] P: [phone] Thank you for this referral
== END ==
PROVIDERS: PCP Internal Medicine; Referring Provider Internal Medicine
DX: E11.9 Type 2 diabetes mellitus without complications (principal); Z71.3 Dietary counseling and surveillance; Z79.4 Long term (current) use of insulin
CPT/HCPCS: G0108

== ENCOUNTER → 2023-10-29 15:55 | Outpatient (CLI) | payer MEDICARE, OTHER, SELFPAY ==
--- NOTE | 2023-12-05 09:18 | DIAB.MNTFU ---
Follow-up Diabetes Medical Nutrition Therapy Assessment Name: John Perez (Isaiah) Date: 10/29/23 Time: 4-445p Dx: Type II Diabetes Isaiah presents for Dm visit. Reports PCp has ordered glucagon but needs to work with pharmacy about cost. Much reduced insulin since no longer injecting into scar tissue. Choosing lower cost meat options. will skip protein at dinner, ie just eat potatoes. So he has been trying to be mindful of including proteins. States no need to theresa different insulin pens. He can now tell the difference between the insulin types. Continues with usual burritos at breakfast, now with 16u mealtime. Then snacking on pizza mid day and dinner with . ETOH intake recently and noticed reduced BG, hypoglycemia. Sometimes skipping glargine due to fear of lows in the night. Anthropometrics: Ht: 6'3 Wt: 257# Physical Activity: ADLs and PT for his back Self-Monitoring Blood Glucose: Reduced hyperglycemia by 10% since last visit. Time in range above goal of 70%. Today TIR: 2% very high 23% high 74% in range 1% low 0% very low Av mg/dl GMI 6.9% variability: 28.8% Last TIR: 6% very high 29% high 64% in range 1% low 0% very low Av mg/dl GMI 7.3% variability: 30.9% Diabetes Medications: 0-30u Glargine -- reduced from 70u 16u Aspart BID-- reduced from 25u Pertinent Labs: HgA1c: 7.3% 03/2023 7.2% 06/2023 Past Medical History: (Last Reviewed 08/27/23 @ 14:14 by Jacinta Cota MD) BPH w urinary obs/LUTS Diabetic retinopathy Elevated PSA Erectile dysfunction due to diabetes mellitus Essential hypertension Family history of colon cancer in mother Mixed hyperlipidemia Obesity (BMI 30.0-34.9) Primary osteoarthritis involving multiple joints Seizure disorder Stage 3b chronic kidney disease (CKD) Type 2 diabetes mellitus with stage 3b chronic kidney disease Nutrition Rx: Carbohydrates: Meal:45-60g Snack:15-30g Nutrition Diagnosis: Inconsistent energy intake r/t changes in schedule causing skipped mid day intake aeb BG <70 mg/dl and pt report- improved/in progress Inadequate fiber intake r/t limited veggies in diet aeb pt report of only veggies at dinner - continued Intervention: This participant was very receptive. Provided appropriate educational handouts. Discussed the following topics: Blood sugar review and trends. Reduced insulin needs now that insulin injection sites are rotated Impact of ETOH on BG Review of food and insulin logs Created SMART goals for patient self-care and success. Goals: Add salad to dinner- in progress Theresa insulin pens- d/c Keep log of food and insulin doses- 50% met Try 10u Lantus instead of skipping altogether- new Try 5-10u meal time, up to 16u- new Call pharmacy about glucagon- new Continue to write down food and insulin doses- new Follow-up: KALPANA SEAMAN follow-up in 2-3 weeks Marietta Lira RDN, [facility] Certified Diabetes Care and [facility] P: [phone] Thank you for this referral
== END ==
LOC: DIET 15:55
PROVIDERS: PCP Internal Medicine; Referring Provider Internal Medicine
DX: E11.22 Type 2 diabetes mellitus with diabetic chronic kidney disease (principal); Z71.3 Dietary counseling and surveillance; Z79.4 Long term (current) use of insulin; N18.32 Chronic kidney disease, stage 3b
CPT/HCPCS: 97803

== ENCOUNTER 2023-11-11 11:47 | Day surgery (SDC) | payer MEDICARE, OTHER, SELFPAY ==
--- NOTE | 2023-11-11 | PATH_ITS ---
[facility] Accession Number: [id number] No. of containers..02 Tissue . 01 Material submitted: . PART A: rectum - RECTAL POLYP PART B: colon - CECUM POLYP . 01 Diagnosis: A. RECTAL POLYP: Hyperplastic polyp. . B. CECAL POLYP: Tubular adenoma. MRV 11/13/2023 1203 Local . 01 Electronically signed: . Robert Russell MD, PhD, Pathologist NPI- [id number] . 01 Gross description: . A. Received in formalin with two patient identifiers and rectal polyp, is a single rivera soft tissue fragment, 0.4 cm in greatest dimension. Submitted in A1. B. Received in formalin with two patient identifiers and cecum polyp, is a single rivera soft tissue fragment, 0.5 cm in greatest dimension. Submitted in B1. ([id number]) /MRV 11/12/2023 0743 Local . 01 Pathologist provided ICD-10: K62.1, D12.0 . 01 CPT . 237923, [id number] Specimen Comment: A courtesy copy of this report has been sent to [phone] Performed at: [address] [facility] [address], [place], [place] [id number] MD Delvis León MD Phone: [phone]
--- NOTE | 2023-11-11 12:41 | PM.HP.1 ---
History of Present Illness History of Present Illness Date Patient Seen: 11/11/23 Time Patient Seen: 12:41 Chief complaint: SDC Narrative: 72-year-old man history of colonic polyps and family history colon cancer here for screening colonoscopy. Last colonoscopy 5 years ago. No abdominal concerns. 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: spouse Smoking Status: Never smoker alcohol intake: never caffeine: Yes Meds Home Medications and Allergies Home Medications Medication Instructions Recorded Confirmed Type cholecalciferol (vitamin D3) 50 1 cap PO DAILY 06/22/18 07/21/23 History mcg (2,000 unit) capsule (Vitamin D3) topiramate 200 mg tablet 200 mg PO BID #180 tabs 04/10/22 07/21/23 Rx losartan 100 mg tablet 100 mg PO DAILY #90 tabs 04/07/23 07/21/23 Rx lamotrigine 200 mg tablet 200 mg PO .COMPLEX 06/26/23 07/21/23 History amlodipine 5 mg tablet 5 mg PO DAILY #90 tabs 07/02/23 07/21/23 Rx atorvastatin 20 mg tablet 20 mg PO DAILY #90 tabs 07/02/23 07/21/23 Rx insulin aspart 20 unit SUBCUT TIDWMEAL #15 mL 07/03/23 07/21/23 Rx (niacinamide)(U-100) 100 unit/mL(3 mL) subcutaneous pen (Fiasp FlexTouch U-100 Insulin) sodium,potassium,mag sulfates 17.5 See Rx Instructions PO .COMPLEX 09/08/23 Rx gram-3.13 gram-1.6 gram oral soln #354 mL (Suprep Bowel Prep Kit) tamsulosin 0.4 mg capsule 0.4 mg PO BEDTIME #90 caps 09/09/23 Rx glucagon 3 mg/actuation nasal spray 3 mg intranasal ONCE #2 ea 10/10/23 Rx Allergies Allergy/AdvReac Type Severity Reaction Status Date / Time finasteride AdvReac Mild breast pain Verified 11/11/23 12:39 Exam Narrative Exam Narrative: General adult man alert oriented no acute distress Chest nonlabored respiration Extremities warm well perfused Assessment & Plan Assessment and plan (1) Family history of colon cancer in mother: Status: Acute Assessment & Plan narrative: The patient requires colorectal screening and colonoscopy is recommended. Technical details were discussed. Risks, benefits, alternatives explained. Risks including but not limited to myocardial infarction, aspiration, bleeding, pain, missed lesion, incomplete examination, need for further radiographic studies, intestinal injury, and need for major abdominal surgery were discussed. All questions were answered to their satisfaction, and they are in agreement with this plan. Time-Based Coding :: [TOTAL MINUTES] spent with patient and on the chart (including review of chart, obtaining history, exam, reviewing outside data, placing orders, documenting exam and treatment plan, and counseling patient) on [DATE].
--- NOTE | 2023-11-11 12:43 | P.OP.COLON_ITS ---
Operative Date/Time/Diagnoses Date of procedure: 11/11/23 Time of procedure: 12:43 Pre-op diagnosis: Family history of colon cancer Post-op diagnosis: other (Colonic polyps x2) Procedure & Clinicians Study performed: Screening colonoscopy Same procedure as scheduled: Yes Indications: Screening, family history of colon cancer in first-degree relative Surgeon: Heraclio Whatley Procedure Notes Procedure in detail: The history and physical was performed/updated and the patient is ASA class is 2. The procedure was discussed in detail with the patient. Potential risks complications including infection, bleeding, missed diagnosis, perforation, need for surgery, and were explained. Their questions were answered and informed consent was obtained. Patient was brought to the procedure room and placed standard monitoring equipment. The patient's vital signs were monitored continuously throughout the entire procedure. Prior to starting time-out was performed. The patient was placed in the left lateral recumbent position. Procedural sedation was administered by anesthesia. Examination began with a thorough inspection of the perianal area there was no evidence of fissures, fistulae, external hemorrhoids or cutaneous malignancy. The colonoscopy scope was then placed into the anal canal and was advanced to the cecum, which was identified by the ileocecal valve, the appendiceal orifice and the confluence of the taenia. The scope was then slowly withdrawn examining colon thoroughly in all directions, irrigating it of any residual stool. The scope was retroflexed within the rectum The patient tolerated the procedure well. They will be discharged once criteria are met. The prep was of good/excellent quality. The withdrawl time was 7 6 minutes. FINDINGS * Cecal polyp 3 mm removed with biopsy forceps * Rectal polyp 3 mm removed with biopsy forceps Specimen(s): other (Cecal and rectal polyps) Impression: Colonic polyps x2 Post-procedure Plan for aftercare: Follow up dependent on pathology findings likely 5 years. Disposition: same day surgery
[2023-11-11 12:50] VITALS: BP 154/81; PULSE 75; RESP 18; TEMP 36.3; O2SAT 97
[2023-11-11] MEDS: LACTATED RINGERS 1,000 ML 150 ML IV (12:53)
[2023-11-11 13:24] VITALS: BP 104/65; PULSE 70; RESP 18; TEMP 36.3; O2SAT 94
[2023-11-11 13:31] VITALS: BP 117/69; PULSE 78; RESP 16; TEMP 36.4; O2SAT 97
== END 2023-11-11 13:44 | disposition home or self-care (01) ==
PROVIDERS: PCP Internal Medicine; Referring Provider Surgery; Visit Provider Surgery
PROC: 0DJD8ZZ Inspection of Lower Intestinal Tract, Via Natural or Artificial Opening Endoscopic (ICD-10-PCS; CPT 45378; principal; 2023-11-11 13:30)
DX: Z12.11 Encounter for screening for malignant neoplasm of colon (principal); Z86.010 Personal history of colon polyps; Z80.0 Family history of malignant neoplasm of digestive organs; D12.0 Benign neoplasm of cecum; K62.1 Rectal polyp
CPT/HCPCS: 45380; 82962; J2704

== ENCOUNTER 2023-11-20 13:45 | Outpatient (RCR) | payer OTHER, MEDICARE, SELFPAY ==
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
== END 2023-12-09 09:54 | disposition home or self-care (01) ==
LOC: PHYS 13:45
PROVIDERS: PCP Internal Medicine; Referring Provider Internal Medicine; Visit Provider Internal Medicine
DX: M54.2 Cervicalgia (principal); R53.1 Weakness; R27.8 Other lack of coordination; M25.60 Stiffness of unspecified joint, not elsewhere classified; M25.611 Stiffness of right shoulder, not elsewhere classified
CPT/HCPCS: 97110; 97140; 97162

== ENCOUNTER → 2023-11-26 14:52 | Outpatient (CLI) | payer MEDICARE, OTHER, SELFPAY ==
--- NOTE | 2023-12-09 11:15 | DIAB.FU ---
Follow-up Diabetes Education Assessment Name: John Perez (Isaiah) Date: 11/26/23 Time: 315-4p Dx: Type II Diabetes Isaiah presents for Dm visit. Has not called pharmacy about glucagon. Did keep track of a few days of insulin doses, though no meal records. Has been using 's sugar sweetened creamer recently, which he has noticed an increase in BG from this. Reduced pizza intake during the day. continues with usual burritos for breakfast, we have discussed this at length in previous visits. States sometimes he does not take meal time insulin, thinking he may not have an elevated BG, ie 4 doughnuts. Interested in pump therapy, but nothing that has to connect to his belt per report. Omnipod? Anthropometrics: Ht: 6'3 Wt: 257# Physical Activity: ADLs and PT for his back Self-Monitoring Blood Glucose: Increased hyperglycemia since last visit with more time in 250mg/dl range. No longer having lows. slightly below time in range goal of 70% Today TIR: 6% very high 28% high 66% in range 0% low 0% very low Av mg/dl GMI 7.3% variability: 33.6% Last TIR: 2% very high 23% high 74% in range 1% low 0% very low Av mg/dl GMI 6.9% variability: 28.8% Diabetes Medications: 10-30u Glargine 16u Aspart BID Pertinent Labs: HgA1c: 7.3% 03/2023 7.2% 06/2023 Past Medical History: (Last Reviewed 08/27/23 @ 14:14 by Jacinta Cota MD) BPH w urinary obs/LUTS Diabetic retinopathy Elevated PSA Erectile dysfunction due to diabetes mellitus Essential hypertension Family history of colon cancer in mother Mixed hyperlipidemia Obesity (BMI 30.0-34.9) Primary osteoarthritis involving multiple joints Seizure disorder Stage 3b chronic kidney disease (CKD) Type 2 diabetes mellitus with stage 3b chronic kidney disease Nutrition Rx: Carbohydrates: Meal:45-60g Snack:15-30g Nutrition Diagnosis: Inconsistent energy intake r/t changes in schedule causing skipped mid day intake aeb BG <70 mg/dl and pt report- improved/in progress Inadequate fiber intake r/t limited veggies in diet aeb pt report of only veggies at dinner - continued Intervention: This participant was very receptive. Provided appropriate educational handouts. Discussed the following topics: Blood sugar review and trends. Importance of covering carbs Potential for pump therapy Review of nutrition recs Created SMART goals for patient self-care and success. Goals: Try 10u Lantus instead of skipping altogether- met Try 5-10u meal time, up to 16u- in prgress Call pharmacy about glucagon- not met Continue to write down food and insulin doses- 50% met Take insulin with carbohydrates TID- new Switch to sf creamer- new Follow-up: [facility]AM[facility] follow-up in 3-4 weeks Marietta Lira RDN, [facility] Certified Diabetes Care and Technology Coach P: [phone] Thank you for this referral
== END ==
PROVIDERS: PCP Internal Medicine; Referring Provider Internal Medicine
DX: E11.65 Type 2 diabetes mellitus with hyperglycemia (principal); E11.22 Type 2 diabetes mellitus with diabetic chronic kidney disease; E11.3593 Type 2 diabetes mellitus with proliferative diabetic retinopathy without macular edema, bilateral; N18.32 Chronic kidney disease, stage 3b; Z71.3 Dietary counseling and surveillance; Z79.4 Long term (current) use of insulin
CPT/HCPCS: G0108

== ENCOUNTER → 2023-12-25 15:00 | Outpatient (CLI) | payer MEDICARE, OTHER, SELFPAY ==
[2023-12-25 16:07] LABS: Hemoglobin A1C% w Est Avg Glu 6.9 % (4.0-6.0)
[2023-12-25 16:32] LABS: Aspartate Aminotransferase 22 IU/L (17-59); BUN Creatinine Ratio 17.1 (6-22); Blood Urea Nitrogen 24 mg/dL (9-20); Calcium 9.5 mg/dL (8.4-10.2); Carbon Dioxide 26 mmol/L (22-32); Chloride 107 mmol/L (98-107); Cholesterol 124 mg/dL (140-199); Estimated Glomerular Filt Rate 53 mL/min (>60); Glucose 90 mg/dL (80-110); HDL Cholesterol 71 mg/dL (40-60); HEMOLYSIS < 15 (0-50); LDL Cholesterol Calculated 36 mg/dL (<100); Potassium 4.2 mmol/L (3.4-5.1); Sodium 138 mmol/L (137-145); Triglycerides 84 mg/dL (35-150)
== END ==
PROVIDERS: PCP Internal Medicine; Referring Provider Internal Medicine; Visit Provider Internal Medicine
DX: E11.22 Type 2 diabetes mellitus with diabetic chronic kidney disease (principal); N18.32 Chronic kidney disease, stage 3b; E78.2 Mixed hyperlipidemia; Z79.4 Long term (current) use of insulin; E11.3593 Type 2 diabetes mellitus with proliferative diabetic retinopathy without macular edema, bilateral; I12.9 Hypertensive chronic kidney disease with stage 1 through stage 4 chronic kidney disease, or unspecified chronic kidney disease; N40.1 Benign prostatic hyperplasia with lower urinary tract symptoms; N13.8 Other obstructive and reflux uropathy; R97.20 Elevated prostate specific antigen [PSA]; N52.9 Male erectile dysfunction, unspecified; Z86.0100 Personal history of colon polyps, unspecified; E66.9 Obesity, unspecified; Z68.30 Body mass index [BMI] 30.0-30.9, adult
CPT/HCPCS: 36415; 80048; 80061; 83036; 84450

== ENCOUNTER → 2023-12-30 15:13 | Outpatient (CLI) | payer MEDICARE, OTHER, SELFPAY | PROVIDERS: PCP Internal Medicine; Referring Provider Internal Medicine | DX: E11.22 Type 2 diabetes mellitus with diabetic chronic kidney disease (principal); Z71.3 Dietary counseling and surveillance; N18.32 Chronic kidney disease, stage 3b; Z79.4 Long term (current) use of insulin | CPT/HCPCS: 97803 ==

== ENCOUNTER → 2024-01-27 14:49 | Outpatient (CLI) | payer MEDICARE, OTHER, SELFPAY ==
--- NOTE | 2024-02-27 13:34 | DIAB.MNTFU ---
Follow-up Diabetes Medical Nutrition Therapy Assessment Name: John Perez (Isaiah) Date: 01/27/24 Time: 3-4p Dx: Type II Diabetes Isaiah presents for Dm visit. Reports some difficulty with lows recently at a concert her was playing in. Forgot his gummies and had to find foods to help, but only had access to mixed macro options per report. Also reports gummies being a little expensive to replace after use in low tx. Fear of lows causing highs from over correction also reported. States lows often happen after forgetting to eat after being overly focused on a task. Reports calling [facility] today due to trying to access Omnipod from them. Taking pretty high dose of D3 at 5000IU per day. Noticed coffee creamer still causing BG to go above goal. States he would rather do without it. Anthropometrics: Ht: 6'3 Wt: 257# Physical Activity: ADLs and PT for his back Self-Monitoring Blood Glucose: Increased hyperglycemia above 250mg/dl since last visit, but otherwise similar CGM results. Today TIR: 9% very high 25% high 66% in range 0% low 0% very low Av mg/dl GMI 7.3% variability: 33.1% Last TIR: 6% very high 28% high 66% in range 0% low 0% very low Av mg/dl GMI 7.3% variability: 33.6% Diabetes Medications: 10-30u Glargine 16u Aspart BID Pertinent Labs: HgA1c: 7.3% 03/2023 7.2% 06/2023 Past Medical History: (Last Reviewed 08/27/23 @ 14:14 by Jacinta Cota MD) BPH w urinary obs/LUTS Diabetic retinopathy Elevated PSA Erectile dysfunction due to diabetes mellitus Essential hypertension Family history of colon cancer in mother Mixed hyperlipidemia Obesity (BMI 30.0-34.9) Primary osteoarthritis involving multiple joints Seizure disorder Stage 3b chronic kidney disease (CKD) Type 2 diabetes mellitus with stage 3b chronic kidney disease Nutrition Rx: Carbohydrates: Meal:45-60g Snack:15-30g Nutrition Diagnosis: Inconsistent energy intake r/t changes in schedule causing skipped mid day intake aeb BG <70 mg/dl and pt report- improved/in progress Inadequate fiber intake r/t limited veggies in diet aeb pt report of only veggies at dinner - continued Intervention: This participant was very receptive. Provided appropriate educational handouts. Discussed the following topics: Blood sugar review and trends. Meal timing Lower cost ways to treat lows Impact of creamer on BG and other options Using meter to double check lows as needed Meter vs CGM accuracy Created SMART goals for patient self-care and success. Goals: Take insulin with carbohydrates TID- improved Switch to sf creamer- not met Avoid creamer- new Message RD about pump progress- new Check out glucose tabs- new Use meter prn to check lows- new Follow-up: KALPA[facility] SEAMAN follow-up in 3-4 weeks or sooner with pump equipment. Marietta Lira RDN, [facility] Certified Diabetes Care and Regulatory Internship P: [phone] Thank you for this referral
== END ==
PROVIDERS: PCP Internal Medicine; Referring Provider Internal Medicine
DX: E11.22 Type 2 diabetes mellitus with diabetic chronic kidney disease (principal); Z79.4 Long term (current) use of insulin; Z71.3 Dietary counseling and surveillance; N18.32 Chronic kidney disease, stage 3b
CPT/HCPCS: 97802

== ENCOUNTER → 2024-03-03 13:58 | Outpatient (CLI) | payer OTHER, SELFPAY ==
--- NOTE | 2024-05-07 10:48 | DIAB.FU ---
Follow-up Diabetes Education Assessment Name: John Perez (Isaiah) Date: 03/03/24 Time: 2-230p Dx: Type II Diabetes Isaiah presents for Dm visit. Waiting on [facility] for send CGm sensors. Changed insurance this year. Plans to start Omnipod insulin pump system. Wanting to have a CGM sample today. Taking 0-70u long acting in insulin depending on BG at night per report. Meal time 12-14u Physical Activity: ADLs and PT for his back Self-Monitoring Blood Glucose: Endorses hyperglycemia. No BG for review today and no CGM. Last TIR: 9% very high 25% high 66% in range 0% low 0% very low Av mg/dl GMI 7.3% variability: 33.1% Previous TIR: 6% very high 28% high 66% in range 0% low 0% very low Av mg/dl GMI 7.3% variability: 33.6% Diabetes Medications: 10-30u Glargine--- taking 0-70u 16u Aspart BID--- taking at meals 12-14u Pertinent Labs: HgA1c: 7.3% 03/2023 7.2% 06/2023 Past Medical History: (Last Reviewed 08/27/23 @ 14:14 by Jacinta Cota MD) BPH w urinary obs/LUTS Diabetic retinopathy Elevated PSA Erectile dysfunction due to diabetes mellitus Essential hypertension Family history of colon cancer in mother Mixed hyperlipidemia Obesity (BMI 30.0-34.9) Primary osteoarthritis involving multiple joints Seizure disorder Stage 3b chronic kidney disease (CKD) Type 2 diabetes mellitus with stage 3b chronic kidney disease Intervention: This participant was very receptive. Provided appropriate educational handouts. Discussed the following topics: Troubleshooting pump and CGM access Encouraged dosing long acting based on FBG Review of using vials for pump therapy Created SMART goals for patient self-care and success. Goals: Avoid creamer- in progress Message RD about pump progress- met Check out glucose tabs- met Use meter prn to check lows- continue Bring pump, G7 sensors, and vials next visit- new Follow-up: [facility] SEAMAN follow-up in 3-4 weeks Marietta Lira RDN, [facility] Certified Diabetes Care and Coil Inspector P: [phone] Thank you for this referral
== END ==
PROVIDERS: PCP Internal Medicine; Referring Provider Internal Medicine
DX: E11.65 Type 2 diabetes mellitus with hyperglycemia (principal); Z71.3 Dietary counseling and surveillance; Z79.4 Long term (current) use of insulin
CPT/HCPCS: G0108

== ENCOUNTER → 2024-03-23 09:32 | Outpatient (CLI) | payer OTHER, SELFPAY ==
--- NOTE | 2024-05-07 10:55 | DIAB.FU ---
Addendum entered by Marietta Lira 05/07/24 11:34: Settings from this visit: TDD: 47u Basal rate: 1u/hr IC: 9.5 grams/u ISF: 36mg/dl per unit duration of insulin: 3 hours Original Note: Follow-up Diabetes Education Assessment Name: John Perez (Isaiah) Date: 03/23/24 Time: 120-7841z Dx: Type II Diabetes Isaiah presents for Dm visit with insulin pump equipment and accompanied by Omnipod security trainer. Taking up to 70u HS long acting insulin, but endorses more frequent lows lately. Has not received G7 sensors from DME. No vials yet. Has questions about placement and use of pump. Isaiah does report being ill recently, cold? This has seemed to impact his learning/return demo but he would like to continue training today. His has also had some health concerns recently. Self-Monitoring Blood Glucose: Forgot to link up to dexcom today, has been on FSL previously. Will continue with Dexcom and connect with Omnipod. Today TIR: % very high % high % in range % low % very low Avg: mg/dl GMI % variability: % Last TIR: 9% very high 25% high 66% in range 0% low 0% very low Av mg/dl GMI 7.3% variability: 33.1% Diabetes Medications: Aspart via Omnipod Pertinent Labs: HgA1c: 7.3% 03/2023 7.2% 06/2023 6.9% 12/2023 Past Medical History: BPH w urinary obs/LUTS Diabetic retinopathy Elevated PSA Erectile dysfunction due to diabetes mellitus Essential hypertension Family history of colon cancer in mother Mixed hyperlipidemia Obesity (BMI 30.0-34.9) Primary osteoarthritis involving multiple joints Seizure disorder Stage 3b chronic kidney disease (CKD) Type 2 diabetes mellitus with stage 3b chronic kidney disease Intervention: This participant was very receptive. Provided appropriate educational handouts. Discussed the following topics: Troubleshooting CGM access Education, precautions, and self placement of Omnipod insulin pump Pens v vials for filling pump Carb counts for meals ie small 30g, med 45g, large 60g Goals: Bring pump, G7 sensors, and vials next visit- 50% met Check for vial rx- new check on G7 sensor rx - new Follow-up: RDN [facility] follow-up in 1 week Marietta Lira RDN, [facility] Certified Diabetes Care and Multi Care Technician P: [phone] Thank you for this referral
== END ==
LOC: DIET 09:33
PROVIDERS: PCP Internal Medicine; Referring Provider Internal Medicine
DX: Z46.81 Encounter for fitting and adjustment of insulin pump (principal); E11.9 Type 2 diabetes mellitus without complications; Z71.3 Dietary counseling and surveillance; Z79.4 Long term (current) use of insulin
CPT/HCPCS: G0108

== ENCOUNTER → 2024-04-01 13:54 | Outpatient (CLI) | payer OTHER, SELFPAY ==
--- NOTE | 2024-05-07 11:40 | DIAB.MNTFU ---
Follow-up Diabetes Medical Nutrition Therapy Assessment Name: John Perez (Isaiah) Date: 04/01/24 Time: 2-3p Dx: Type II Diabetes Isaiah presents for Dm f/u. Was not bolusing. Stopped wearing pump for a number of days due to some difficulty with placing pump pod and helping with her health barriers right now. States he would like a review of carb content of foods and pod filling/placement. Some recent foods for review: coffee with creamer Snacks on the go Burritos at breakfast Pump Settings: TDD: 47u Basal rate: 1u/hr IC: 9.5 grams/u ISF: 36mg/dl per unit duration of insulin: 3 hours Anthropometrics: Ht: 6'3 Wt: 257# Self-Monitoring Blood Glucose: Wearing G7 samples. Lower time in range likely r/t learning pump at this time, no bolusing, and switched off pump. Today TIR: 12% very high 31% high 57% in range 0% low 0% very low Av mg/dl GMI % variability: 28.5% Last TIR: 9% very high 25% high 66% in range 0% low 0% very low Av mg/dl GMI 7.3% variability: 33.1% Diabetes Medications: Aspart via Omnipod Pertinent Labs: HgA1c: 7.3% 03/2023 7.2% 06/2023 6.9% 12/2023 Past Medical History: BPH w urinary obs/LUTS Diabetic retinopathy Elevated PSA Erectile dysfunction due to diabetes mellitus Essential hypertension Family history of colon cancer in mother Mixed hyperlipidemia Obesity (BMI 30.0-34.9) Primary osteoarthritis involving multiple joints Seizure disorder Stage 3b chronic kidney disease (CKD) Type 2 diabetes mellitus with stage 3b chronic kidney disease Nutrition Rx: Carbohydrates: Meal:45-60g Snack:15-30g Nutrition Diagnosis: Nutrition and food related knowledge deficit r/t needing review of carb counting and bolusing insulin aeb pt report and pump/CGM reports- new Intervention: This participant was very receptive. Provided appropriate educational handouts. Discussed the following topics: Troubleshooting CGM access Carb content of foods he enjoys Encouraged bolusing any time eating CHO Review of pod placement and filling and alerts Goals: Check for vial rx- met check on G7 sensor rx - continue Bolus for CHO intake as discussed- new Follow-up: KALPANA SEAMAN follow-up in 1 week Marietta Lira RDN, [facility] Certified Diabetes Care and Body Press Operator P: [phone] Thank you for this referral
== END ==
PROVIDERS: PCP Internal Medicine; Referring Provider Internal Medicine
DX: E11.9 Type 2 diabetes mellitus without complications (principal); Z79.4 Long term (current) use of insulin; Z96.41 Presence of insulin pump (external) (internal); Z71.3 Dietary counseling and surveillance
CPT/HCPCS: 97803

== ENCOUNTER → 2024-04-14 09:58 | Outpatient (CLI) | payer OTHER, SELFPAY ==
[2024-04-14 11:05] LABS: Glucose 130 mg/dL (80-110)
[2024-04-15 07:09] LABS: C Peptide 1.4 ng/mL (1.1-4.4)
== END ==
LOC: LAB 10:00
PROVIDERS: PCP Internal Medicine; Referring Provider Internal Medicine; Visit Provider Internal Medicine
DX: E11.22 Type 2 diabetes mellitus with diabetic chronic kidney disease (principal); N18.32 Chronic kidney disease, stage 3b; Z79.4 Long term (current) use of insulin
CPT/HCPCS: 36415; 82947; 84681

== ENCOUNTER → 2024-04-15 12:42 | Outpatient (CLI) | payer OTHER, SELFPAY ==
--- NOTE | 2024-05-07 11:49 | DIAB.FU ---
Follow-up Diabetes Education Assessment Name: John Perez (Isaiah) Date: 04/15/24 Time: 1-130p Dx: Type II Diabetes Isaiah presents for Dm f/u. Bolusing but still having elevations, especially after dinner. Needs review of bolusing when elevated. Also will strengthen insulin to carb ratio. Still having issues accessing G7 sensors. States he has to go through [facility] but unclear of process with [facility]. Pump Settings: TDD: 47u Basal rate: 1u/hr IC: 9.5 grams/u--- changed to 8 with senior trainer recently over phone--- today changed to 6.8u ISF: 36mg/dl per unit duration of insulin: 3 hours 43% basal 57% bolus 198g CHO per day avg Anthropometrics: Ht: 6'3 Wt: 242# reported (down from 255#) Self-Monitoring Blood Glucose: Wearing G7 samples. Improved TIR with less numbers >250mg/dl. Slight improvement to in time range. Needs stronger IC and education on bolusing for corrections. Today TIR: 7% very high 31% high 62% in range 0% low 0% very low Av mg/dl GMI 7.4% variability: 29.1% std dev: 48mg/dl Last TIR: 12% very high 31% high 57% in range 0% low 0% very low Av mg/dl GMI % variability: 28.5% Diabetes Medications: Aspart via Omnipod Pertinent Labs: HgA1c: 7.3% 03/2023 7.2% 06/2023 6.9% 12/2023 Past Medical History: BPH w urinary obs/LUTS Diabetic retinopathy Elevated PSA Erectile dysfunction due to diabetes mellitus Essential hypertension Family history of colon cancer in mother Mixed hyperlipidemia Obesity (BMI 30.0-34.9) Primary osteoarthritis involving multiple joints Seizure disorder Stage 3b chronic kidney disease (CKD) Type 2 diabetes mellitus with stage 3b chronic kidney disease Intervention: This participant was very receptive. Provided appropriate educational handouts. Discussed the following topics: Troubleshooting CGM access Changed pump target to 110mg/dl Also strengthened IC for better coverage of meals/snacks Encouraged bolusing for correction when elevated Goals: Check for vial rx- met check on G7 sensor rx - continue Bolus for CHO intake as discussed- met Call insurance regarding DME and G7 sensors Follow-up: KALPANA SEAMAN follow-up in 3-4 weeks Marietta Lira RDN, [facility] Certified Diabetes Care and Cat Cracker Operator P: [phone] Thank you for this referral
== END ==
PROVIDERS: PCP Internal Medicine; Referring Provider Internal Medicine
DX: E11.65 Type 2 diabetes mellitus with hyperglycemia (principal); Z71.3 Dietary counseling and surveillance; Z79.4 Long term (current) use of insulin; Z96.41 Presence of insulin pump (external) (internal)
CPT/HCPCS: G0108

== ENCOUNTER → 2024-06-02 14:26 | Outpatient (CLI) | payer OTHER, SELFPAY ==
--- NOTE | 2024-06-02 14:32 | DIAB.MNTFU ---
Follow-up Diabetes Medical Nutrition Therapy Assessment Name: John Perez (Isaiah) Date: 06/02/24 Time: 235-3p Dx: Type II Diabetes Isaiah presents for Dm f/u. Plans to receive Omnipod soon. Insurance approved for 90 days supply at $400. Wants to get back on pump to help with wt loss. Noticed wt gain with using MDI vs pump therapy. Having lows and has reduced insulin dosing. Diet recall indicates low veggie intake. does not cook. He cooks sometimes. Some financial constraints with supporting adult son. Diet recall: -10a: 2 burritos (15u) 1p: apple +/- bagel (5-10u) 4-5p: liverwurst sandwich with apple and lettuce OR bagel OR arabic dog water 3-4x 16oz Previous Pump Settings: TDD: 47u Basal rate: 1u/hr IC: 9.5 grams/u--- changed to 8 with wellness trainer recently over phone--- today changed to 6.8u ISF: 36mg/dl per unit duration of insulin: 3 hours Anthropometrics: Ht: 6'3 Wt: no new wt Self-Monitoring Blood Glucose: Unclear if lows are true or false lows. Often happening in rounding machine tender hours. No symptoms. Other times with lows, gets sweaty per report. May be compression lows in sleep. Today TIR: 7% very high 21% high 71% in range 1% low <1% very low Av mg/dl GMI 7.0% variability: 35.1% std dev: 55mg/dl Last TIR: 14% very high 28% high 57% in range 1% low <1% very low Av mg/dl GMI 7.6% variability: 34.1% std dev: 61mg/dl Diabetes Medications: Aspart via Omnipod-- on hold 0-28u Aspart ---- 15u 50u Glargine---- reduced to 40u Pertinent Labs: HgA1c: 7.3% 03/2023 7.2% 06/2023 6.9% 12/2023 Past Medical History: BPH w urinary obs/LUTS Diabetic retinopathy Elevated PSA Erectile dysfunction due to diabetes mellitus Essential hypertension Family history of colon cancer in mother Mixed hyperlipidemia Obesity (BMI 30.0-34.9) Primary osteoarthritis involving multiple joints Seizure disorder Stage 3b chronic kidney disease (CKD) Type 2 diabetes mellitus with stage 3b chronic kidney disease Intervention: This participant was very receptive. Provided appropriate educational handouts. Discussed the following topics: Carb portions and dosing insulin Strategies for reducing lows Calibrating CGM Confirming with finger stick lows Strategies for increasing veggie intake s/s and tx for lows carbs recs Goals: Avoid juice- met Try 5u with bagel- met Calibrate CGM- in progress If low, make a note in CGm on potential reason- not met If having true lows, consider reducing basal to 32-35u HS- new Incorporate carrots at meals or snacks- new Restart pump prn- new Follow-up: KALPANA SEAMAN follow-up in 2-3 weeks Marietta Lira RDN, [facility] Certified Diabetes Care and Mix Mill Tender P: [phone] Thank you for this referral
== END ==
PROVIDERS: PCP Internal Medicine; Referring Provider Internal Medicine
DX: E11.22 Type 2 diabetes mellitus with diabetic chronic kidney disease (principal); Z79.4 Long term (current) use of insulin; Z71.3 Dietary counseling and surveillance; N18.32 Chronic kidney disease, stage 3b
CPT/HCPCS: 97803

== ENCOUNTER → 2024-06-17 13:56 | Outpatient (CLI) | payer OTHER, SELFPAY ==
--- NOTE | 2024-07-06 09:23 | DIAB.MNTFU ---
Follow-up Diabetes Medical Nutrition Therapy Assessment Name: John Perez (Isaiah) Date: 06/17/24 Time: 2-230p Dx: Type II Diabetes Isaiah presents for Dm f/u. Received Omnipods. Restarting pump therpay. Had a low last night per report. Reports high CHO intake with recently, ie ice cream. Endorses elevated BG as a result. Reports diet has been better this week. Increased veggies recently with brussel sprouts. Last Diet recall: : 2 burritos (15u) 1p: apple +/- bagel (5-10u) 4-5p: liverwurst sandwich with apple and lettuce OR bagel OR hong konger dog water 3-4x 16oz Previous Pump Settings: TDD: 47u Basal rate: 1u/hr IC: 9.5 grams/u--- changed to 8 with small engine trainer recently over phone--- today changed to 6.8u ISF: 36mg/dl per unit duration of insulin: 3 hours Anthropometrics: Ht: 6'3 Wt: 255# reported Reports wt of 242# while on omnipod Self-Monitoring Blood Glucose: Higher CHO intake resulting in increased hyperglycemia over the last two weeks. Today TIR: 13% very high 32% high 54% in range 1% low 0% very low Av mg/dl GMI 7.6% variability: 35.5% std dev: 64mg/dl Last TIR: 7% very high 21% high 71% in range 1% low <1% very low Av mg/dl GMI 7.0% variability: 35.1% std dev: 55mg/dl Diabetes Medications: Aspart via Omnipod-- restarting 0-28u Aspart ---- 15u---- 18u 50u Glargine---- reduced to 40u---- 30-50u Pertinent Labs: HgA1c: 7.3% 03/2023 7.2% 06/2023 6.9% 12/2023 Past Medical History: BPH w urinary obs/LUTS Diabetic retinopathy Elevated PSA Erectile dysfunction due to diabetes mellitus Essential hypertension Family history of colon cancer in mother Mixed hyperlipidemia Obesity (BMI 30.0-34.9) Primary osteoarthritis involving multiple joints Seizure disorder Stage 3b chronic kidney disease (CKD) Type 2 diabetes mellitus with stage 3b chronic kidney disease Nutrition Rx: Carbohydrates: Meal:45-60g Snack:15-30g Nutrition Diagnosis: Excessive CHO intake r/t holiday eating aeb pt report and increased BG Intervention: This participant was very receptive. Provided appropriate educational handouts. Discussed the following topics: Sweets and impact on BG Veggie intake Restarting pump Low BG management Goals: If having true lows, consider reducing basal to 32-35u HS- met Incorporate carrots at meals or snacks- not met Restart pump prn- in progress Continue veggie intake- new Limit sweets/ice cream- new Follow-up: KALPANA SEAMAN follow-up in 3 weeks Marietta Lira RDN, [facility] Certified Diabetes Care and High Pressure Firer P: [phone] Thank you for this referral
== END ==
LOC: DIET 13:56
PROVIDERS: PCP Internal Medicine; Referring Provider Internal Medicine
DX: E11.65 Type 2 diabetes mellitus with hyperglycemia (principal); Z46.81 Encounter for fitting and adjustment of insulin pump; Z71.3 Dietary counseling and surveillance; Z79.4 Long term (current) use of insulin; Z96.41 Presence of insulin pump (external) (internal)
CPT/HCPCS: 97803

== ENCOUNTER → 2024-06-29 14:11 | Outpatient (CLI) | payer OTHER, SELFPAY ==
[2024-06-29 14:56] LABS: Hemoglobin A1C% w Est Avg Glu 6.2 % (4.0-6.0)
[2024-06-29 15:06] LABS: Aspartate Aminotransferase 36 IU/L (17-59); BUN Creatinine Ratio 16.2 (6-22); Blood Urea Nitrogen 21 mg/dL (9-20); Calcium 9.4 mg/dL (8.4-10.2); Carbon Dioxide 24 mmol/L (22-32); Chloride 107 mmol/L (98-107); Cholesterol 127 mg/dL (140-199); Estimated Glomerular Filt Rate 58 mL/min (>60); Glucose 104 mg/dL (70-99); HDL Cholesterol 57 mg/dL (40-60); HEMOLYSIS < 15 (0-50); LDL Cholesterol Calculated 53 mg/dL (<100); Potassium 4.3 mmol/L (3.4-5.1); Sodium 140 mmol/L (137-145); Triglycerides 86 mg/dL (35-150)
== END ==
LOC: LAB 14:11
PROVIDERS: PCP Internal Medicine; Referring Provider Internal Medicine; Visit Provider Internal Medicine
DX: E11.319 Type 2 diabetes mellitus with unspecified diabetic retinopathy without macular edema (principal); E78.2 Mixed hyperlipidemia; N18.32 Chronic kidney disease, stage 3b
CPT/HCPCS: 36415; 80048; 80061; 83036; 84450

== ENCOUNTER → 2024-07-08 14:57 | Outpatient (CLI) | payer OTHER, SELFPAY ==
--- NOTE | 2024-07-09 17:13 | DIAB.MNTFU ---
Follow-up Diabetes Medical Nutrition Therapy Assessment Name: John Perez (Isaiah) Date: 07/09/24 Time: 3-345p Dx: Type II Diabetes Isaiah presents for Dm f/u. continues on insulin therapy using Omnipod. Recent hgA1c of 6.2% BG seems to be elevated at lunch and dinner recently. Dinner portions seem quite high in CHO, ie two bagels and a can of pears in juice Continues trying to add veggies. Plans to start Jardiance after last PCP appt. May need to adjust pump settings after starting, ie IC ratio. Pump Settings: TDD: 47u---- 46.7u Basal rate: 1u/hr IC: 6.8u grams/u ISF: 36mg/dl per unit duration of insulin: 3 hours Anthropometrics: Ht: 6'3 Wt: 245# reported 06/2024 255# reported 05/2024 Reports wt of 242# while on omnipod Self-Monitoring Blood Glucose: Improved TIR. Most elevated BG after lunch and dinner. Today TIR: 7% very high 22% high 71% in range 0% low 0% very low Av mg/dl GMI % variability: 30.6% std dev: 49mg/dl Last TIR: 13% very high 32% high 54% in range 1% low 0% very low Av mg/dl GMI 7.6% variability: 35.5% std dev: 64mg/dl Diabetes Medications: Aspart via Omnipod Pertinent Labs: HgA1c: 7.3% 03/2023 7.2% 06/2023 6.9% 12/2023 6.2% 06/2024 Past Medical History: BPH w urinary obs/LUTS Diabetic retinopathy Elevated PSA Erectile dysfunction due to diabetes mellitus Essential hypertension Family history of colon cancer in mother Mixed hyperlipidemia Obesity (BMI 30.0-34.9) Primary osteoarthritis involving multiple joints Seizure disorder Stage 3b chronic kidney disease (CKD) Type 2 diabetes mellitus with stage 3b chronic kidney disease Nutrition Rx: Carbohydrates: Meal:45-60g Snack:15-30g Nutrition Diagnosis: Excessive CHO intake r/t nutrition knowledge deficit aeb pt report and BG postprandial Intervention: This participant was very receptive. Provided appropriate educational handouts. Discussed the following topics: CHO content of foods Adding custom foods CHO recs at meals Calibration of CGM Jardiance in brief: precautions and impact on BG Portions and CHO counting review Goals: Restart pump prn- met Continue veggie intake- met Limit sweets/ice cream- in progress Use new custom foods to bolus- new Follow-up: KALPANA SEAMAN follow-up in 4-6 weeks or sooner erendira Lira RDN, [facility] Certified Diabetes Care and Stud Dairy Cattle Farmer P: [phone] Thank you for this referral
== END ==
PROVIDERS: PCP Internal Medicine; Referring Provider Internal Medicine
DX: E11.65 Type 2 diabetes mellitus with hyperglycemia (principal); Z71.3 Dietary counseling and surveillance; Z96.41 Presence of insulin pump (external) (internal); Z79.4 Long term (current) use of insulin
CPT/HCPCS: 97803

== ENCOUNTER → 2024-08-24 12:53 | Outpatient (CLI) | payer OTHER, SELFPAY ==
--- NOTE | 2024-08-24 13:02 | DIAB.MNTFU ---
Follow-up Diabetes Medical Nutrition Therapy Assessment Name: John Perez (Isaiah) Date: 08/24/24 Time: 1-145p Dx: Type II Diabetes Isaiah presents for Dm f/u. Continues on insulin therapy using Omnipod. Had two pod failures and one that prematurely came off. Has not called Omnipod for replacement yet. Using custom foods to dose insulin. States he does not need any addition custom foods added at this time. Does struggle with dosing insulin for fruit, often results in hyperglycemia. Questions about alerts for pod time zone changes and pod changes. Has PCP f/u in September. No significant diet changes reported. Reports sometimes runs BG high on purpose when leaving the house due to fears of lows; however this is less likely since changing from MDI to pump therapy. Pump Settings: TDD: 47u---- 46.7u--- 46.5u Basal rate: 1u/hr IC: 6.8u grams/u ISF: 36mg/dl per unit duration of insulin: 3 hours Anthropometrics: Ht: 6'3 Wt: 242# reported 08/2024 245# reported 06/2024 255# reported 05/2024 Reports wt of 242# while on omnipod Self-Monitoring Blood Glucose: continued improved TIR, within goal Today TIR: 1% very high 19% high 80% in range 0% low 0% very low Av mg/dl GMI 6.8% variability: 26.8% std dev: 39 mg/dl Last TIR: 7% very high 22% high 71% in range 0% low 0% very low Av mg/dl GMI % variability: 30.6% std dev: 49mg/dl Diabetes Medications: Aspart via Omnipod Pertinent Labs: HgA1c: 7.3% 03/2023 7.2% 06/2023 6.9% 12/2023 6.2% 06/2024 Past Medical History: BPH w urinary obs/LUTS Diabetic retinopathy Elevated PSA Erectile dysfunction due to diabetes mellitus Essential hypertension Family history of colon cancer in mother Mixed hyperlipidemia Obesity (BMI 30.0-34.9) Primary osteoarthritis involving multiple joints Seizure disorder Stage 3b chronic kidney disease (CKD) Type 2 diabetes mellitus with stage 3b chronic kidney disease Nutrition Rx: Carbohydrates: Meal:45-60gSnack:15-30g Nutrition Diagnosis: Excessive CHO intake r/t nutrition knowledge deficit and intentionally running high at times to reduce risk of lows aeb pt report and BG postprandial - in progress Intervention: This participant was very receptive. Provided appropriate educational handouts. Discussed the following topics: Dosing insulin for fruit CHO portion recs Keeping snack on you when leaving the house instead of running elevated MDI vs pump therapy low risks and risk reduction Calibration of CGM Goals: Use new custom foods to bolus- met Call Omnipod for replacements- new Choose smaller fruit portions or dose for larger portions- new Keep a snack on you, instead of running high intentionally- new Follow-up: [facility] follow-up in 2-3 months per pt request. Overall, Isaiah is managing Dm well. Will follow-up in November or sooner prn. Marietta Lira RDN, CDCES Certified Diabetes Care and Gyroscope Repairer P: [phone] Thank you for this referral
== END ==
LOC: DIET 12:53
PROVIDERS: PCP Internal Medicine; Referring Provider Internal Medicine
DX: E11.9 Type 2 diabetes mellitus without complications (principal); Z71.3 Dietary counseling and surveillance; Z96.41 Presence of insulin pump (external) (internal); Z79.4 Long term (current) use of insulin
CPT/HCPCS: G0270

== ENCOUNTER → 2024-09-29 14:34 | Outpatient (CLI) | payer OTHER, SELFPAY ==
[2024-09-29 15:49] LABS: Hematocrit 43.8 % (41-53); Hemoglobin 14.6 g/dL (13.5-17.5); Mean Corpuscular HGB Conc 33.3 % (30-36); Mean Corpuscular Hemoglobin 29.5 PG (26-34); Mean Corpuscular Volume 88.5 fL (80-100); Platelet Count 170 X10^3/uL (150-400)
[2024-09-29 15:51] LABS: Hemoglobin A1C% w Est Avg Glu 6.0 % (4.0-6.0)
[2024-09-29 16:14] LABS: Blood Urea Nitrogen 25 mg/dL (9-20); Calcium 9.0 mg/dL (8.4-10.2); Carbon Dioxide 25 mmol/L (22-32); Chloride 107 mmol/L (98-107); Estimated Glomerular Filt Rate 52 mL/min (>60); Glucose 141 mg/dL (70-99); HEMOLYSIS < 15 (0-50); Sodium 138 mmol/L (137-145)
[2024-09-29 16:26] LABS: Potassium 4.2 mmol/L (3.4-5.1)
[2024-09-29 17:04] LABS: Microalbumi Creatinin Ratio Ur 12.0 ug/mg CR (<30)
== END ==
PROVIDERS: PCP Internal Medicine; Referring Provider Internal Medicine; Visit Provider Internal Medicine
DX: E11.22 Type 2 diabetes mellitus with diabetic chronic kidney disease (principal); N18.32 Chronic kidney disease, stage 3b; Z79.4 Long term (current) use of insulin
CPT/HCPCS: 36415; 80048; 82043; 82570; 83036; 85027

== ENCOUNTER 2024-11-22 13:18 | Observation (INO) | payer OTHER, SELFPAY ==
[2024-11-22] VITALS (12 sets, daily range): BP systolic 104–172; BP diastolic 60–93; PULSE 67–112; RESP 14–21; TEMP 36.3–36.7; O2SAT 92–98; BMI 30.9
--- NOTE | 2024-11-22 13:32 | EKG_ITS ---
[id number] [address] Test Date: 2024-11-22 Pat Name: John Perez Department: Room: 207 Gender: Male Surgery Consultant: SIDDHARTHA : 1950 Requested By: Order Number: [id number] Reading MD: Rudolph Russell Measurements Intervals [place] Rate: 112 P: 37 [place]: 224 QRS: -37 QRSD: 136 T: 6 QT: 306 QTc: 417 Interpretive Statements Sinus tachycardia with 1st degree AV block Left axis deviation Right bundle branch block Possible Inferior infarct , age undetermined Electronically Signed On 11-24-2024 8:31:26 PDT by Rudolph Russell
--- NOTE | 2024-11-22 13:33 | DI.CT.S_ITS ---
PROCEDURE: CT HEAD/BRAIN WO CON INDICATIONS: fall ams TECHNIQUE: Noncontrast 4.5 mm thick angled axial sections acquired from the foramen magnum to the vertex, with coronal and sagittal reformats. For radiation dose reduction, the following was used: automated exposure control, adjustment of mA and/or kV according to patient size. COMPARISON: [facility], CT, CT HEAD/BRAIN WO CON, 05/23/2023, 15:17. FINDINGS: Image quality: Diagnostic. CSF spaces: Basal cisterns are patent. No extra-axial fluid collections. The ventricles are symmetric in size and shape. Brain: No intracranial bleeds or mass effect. There is cerebral volume loss, with resultant ventricular and sulcal prominence. There are periventricular and deep white matter chronic small vessel ischemic changes. There is intracranial internal carotid artery atherosclerosis. Skull and face: Left height frontal parietal scalp hematoma is seen. Calvarium and visualized facial bones appear intact, without suspicious lesions. Sinuses: Visualized sinuses and mastoids are clear. IMPRESSION: No acute intracranial pathology. Left posterior frontal parietal scalp hematoma without acute skull fracture. Dictated by: Deandre Camarillo M.D. on 11/22/2024 at 14:37 Approved by: Deandre Camarillo M.D. on 11/22/2024 at 14:38
--- NOTE | 2024-11-22 13:33 | DI.CT.S_ITS ---
PROCEDURE: CT CERVICAL SPINE WO CON INDICATIONS: fall, altered TECHNIQUE: Noncontrast 3 mm thick sections acquired from the skull base to the T4 level. Sagittal and coronal reformats were then constructed. For radiation dose reduction, the following was used: automated exposure control, adjustment of mA and/or kV according to patient size. COMPARISON: [facility], CT, CT CERVICAL SPINE WO CON, 07/02/2023, 14:32. FINDINGS: Image quality: Excellent. Bones: No acute fractures or dislocations. Chronic compression deformity involving C5 vertebral body unchanged from prior studies. Mild chronic appearing compression deformities also noted at T3, T4 and T5 levels. Visualized superior ribs are intact. Soft tissues: Prevertebral soft tissues are normal in thickness. No paravertebral hematomas. No apical pneumothoraces. IMPRESSION: 1. No displaced fracture or traumatic subluxation. 2. Chronic appearing compression deformities as above, unchanged from prior study. Dictated by: Deandre Camarillo M.D. on 11/22/2024 at 14:38 Approved by: Deandre Camarillo M.D. on 11/22/2024 at 14:41
--- NOTE | 2024-11-22 13:36 | ED_ITS ---
HPI - Altered Mental Status <Magalie Grewal MD - Last Filed: 11/25/24 19:09> General Chief Complaint: Altered Mental Status Stated Complaint: confusion, blood on face Time Seen by Provider: 11/22/24 13:27 Source: other Mode of arrival: Wheelchair History of Present Illness HPI narrative: [age] year old male referred to the emergency department from the walk- in clinic for altered mental status. Patient states he had a ?fall? but not able to elaborate when it where this occurred. He is noted to have blood on his face. Patient is a poor historian but tells me he lives in [place] and drove here alone. His 's name is Kim. He is not in any pain. He can not remember his past medical history. He denies any neck pain or chest pain. 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 #1 ea 03/12/24 (Dexcom G7 Knitter Operator) insulin aspart 20 unit SUBCUT TIDWMEAL #15 mL 03/12/24 (niacinamide)(U-100) 100 unit/mL(3 mL) subcutaneous pen (Fiasp FlexTouch U-100 Insulin) insulin glargine 100 unit/mL (3 70 unit (0.7 mL) SUBCU T QPM #15 mL 03/12/24 mL) subcutaneous pen (Basaglar KwikPen U-100 Insulin) insulin aspart U-100 100 unit/mL See Rx Instructions S UBCUT 03/29/24 subcutaneous solution USEASDIRECTD #10 mL insulin pump cart,auto,BT,G6/7 #10 ea 05/19/24 (Omnipod 5 G6-G7 Pods (Gen 5) subcutaneous cartridge) losartan 100 mg tablet 100 mg PO DAILY #90 tabs 07/11 amlodipine 5 mg tablet 5 mg PO DAILY #90 tabs 07/06 atorvastatin 20 mg tablet 20 mg PO DAILY #90 tabs 08/17 09/10 tamsulosin 0.4 mg capsule 0.4 mg PO BEDTIME #90 caps 0 09/21/24 empagliflozin 25 mg tablet 25 mg PO DAILY #90 tabs (Jardiance) blood-glucose sensor (Dexcom G7 #9 ea 10/25/24 Sensor device) Allergies Allergy/AdvReac Type Severity Reaction Status Date / Time finasteride AdvReac Mild breast pain Verified 10/12/24 14:55 Review of Systems <Magalie Grewal MD - Last Filed: 11/25/24 19:09> Review of Systems Narrative: Unable to obtain ROS Unobtainable: Unobtainable due to mental status/LOC Patient History <Magalie Grewal MD - Last Filed: 11/25/24 19:09> Medical History Arthritis of carpometacarpal (CMC) joint of left thumb Family history of colon cancer in mother Primary osteoarthritis involving multiple joints Obesity (BMI 30.0-34.9) Diabetic retinopathy Stage 3b chronic kidney disease (CKD) Mixed hyperlipidemia Essential hypertension Type 2 diabetes mellitus with stage 3b chronic kidney disease Erectile dysfunction due to diabetes mellitus BPH w urinary obs/LUTS Elevated PSA Seizure disorder Surgical History Hx of prostate biopsy Family History Father Diabetes mellitus Grandfather Diabetes mellitus Social History marital status: details: 1 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 He is cooperative. Poor recollection of events Head: There is a superficial abrasion that appears acute over the left cheek. No bony tenderness of the face or crepitus, extraocular movements intact Neck: No midline C-spine tenderness normal range of motion of the neck Cardiovascular: RRR, no murmur or rub Pulmonary: Crackles at the bases, no respiratory distress Abdominal: soft, non-tender Extremities: No LE edema Skin: warm and dry, no diaphoresis Neurological: Alert and oriented x3, no facial droop, moves all extremities <Jl Ochoa DO - Last Filed: 11/22/24 18:32> Initial Vital Signs Initial Vital Signs: Vital Signs Pulse Rate 107 H 11/22/24 13:26 Pulse Oximetry 94 11/22/24 13:26 Scores <Magalie Grewal MD - Last Filed: 11/25/24 19:09> HEART Score Heart Score Total: 6 <Jl Ochoa DO - Last Filed: 11/22/24 18:32> HEART Score Heart Score history: Moderately Suspicious Heart Score EKG: Non-Specific repolarization disturbance Heart Score Age: > or = 65 years old Heart Score risk factors: > 3 risk factors or hx of atherosclerotic disease Heart Score troponin: < or = to normal limit Heart Score Total: 6 Course <Magalie Grewal MD - Last Filed: 11/25/24 19:09> Orders Ordered: Discontinued Medications Amlodipine Besylate (Amlodipine 5 Mg Tablet) 5 mg PO DAILY [facility] Last Admin: 11/24/24 08:51 Dose: 5 mg Documented By: Admin: 11/23/24 11:15 Dose: 5 mg Documented By: NEHA Atorvastatin Calcium (Atorvastatin 20 Mg Tablet) 20 mg PO DAILY [facility] Last Admin: 11/24/24 08:51 Dose: 20 mg Documented By: Admin: 11/23/24 11:15 Dose: 20 mg Documented By: NEHA Diphtheria/Tetanus/Acell Pertussis (Tet,Diph,Pertuss(Acell),Vac/Pf 0.5 Ml Syringe) 0.5 ml IM .ONCE ONE Stop: 11/22/24 13:42 Last Admin: 11/22/24 13:57 Dose: 0.5 ml Documented By: BABAK Sodium Chloride (Normal Saline 0.9%) 1,000 mls @ 1,000 mls/hr IV BOLUS ONE Stop: 11/22/24 14:33 Last Infusion: 11/22/24 14:13 Dose: Infused Documented By: FLGelacio Admin: 11/22/24 13:39 Dose: 1,000 mls/hr Documented By: BABAK Dextrose (D10w) 100 mls @ 1,200 mls/hr IV PRN PRN PRN Reason: Hypoglycemia Insulin Glargine (Insulin Glargine 100 Unit/Ml 3ml Pen) 30 unit SUBCUT BEDTIME [facility] Insulin Glargine (Insulin Glargine 100 Unit/Ml 3ml Pen) 30 unit SUBCUT NOW ONE Stop: 11/23/24 12:01 Last Admin: 11/23/24 12:54 Dose: 30 unit Documented By: NEHA Co-signed By: JABARI Insulin Glargine (Insulin Glargine 100 Unit/Ml 3ml Pen) 30 unit SUBCUT BEDTIME [facility] Insulin Glargine (Insulin Glargine 100 Unit/Ml 3ml Pen) 15 unit SUBCUT NOW ONE Stop: 11/24/24 12:01 Last Admin: 11/24/24 12:58 Dose: 15 unit Documented By: SHANNAN Co-signed By: SUGAR Insulin Glargine (Insulin Glargine 100 Unit/Ml 3ml Pen) 15 unit SUBCUT BEDTIME [facility] Stop: 11/24/24 21:01 Insulin Human Lispro (Insulin Lispro 100 Unit/Ml 3ml Vial) 5 unit SUBCUT AC [facility] Last Admin: 11/23/24 12:53 Dose: 5 unit Documented By: NEHA Co-signed By: JABARI Insulin Human Lispro (Insulin Lispro 100 Unit/Ml 3ml Vial) 0 unit SUBCUT ACHS [facility]; Protocol Last Admin: 11/24/24 08:03 Dose: Not Given Documented By: Admin: 11/23/24 21:15 Dose: Not Given Documented By: Admin: 11/23/24 16:46 Dose: 3 unit Documented By: NEHA Co-signed By: JABARI Admin: 11/23/24 12:54 Dose: 3 unit Documented By: NEHA Co-signed By: JABARI Insulin Human Lispro (Insulin Lispro 100 Unit/Ml 3ml Vial) 10 unit SUBCUT AC [facility] Last Admin: 11/24/24 08:04 Dose: Not Given Documented By: Admin: 11/23/24 16:47 Dose: 10 unit Documented By: NEHA Co-signed By: JABARI Insulin Human Lispro (Insulin Pump) 1 request MISC 0000 [facility] Insulin Human Lispro (Insulin Lispro 100 Unit/Ml 3ml Vial) 5 unit SUBCUT AC [facility] Insulin Human Lispro (Insulin Lispro 100 Unit/Ml 3ml Vial) 0 unit SUBCUT ACHS [facility]; Protocol Insulin Human Lispro (Insulin Lispro 100 Unit/Ml 3ml Vial) 10 unit SUBCUT AC [facility] Lamotrigine (Lamotrigine 100 Mg Tablet) 300 mg PO DAILY [facility] Last Admin: 11/24/24 08:51 Dose: 300 mg Documented By: Admin: 11/23/24 11:15 Dose: 300 mg Documented By: NEHA Lamotrigine (Lamotrigine 100 Mg Tablet) 350 mg PO BEDTIME [facility] Last Admin: 11/23/24 21:16 Dose: 350 mg Documented By: Admin: 11/23/24 01:09 Dose: 350 mg Documented By: FLAVIO Losartan Potassium (Losartan 50 Mg Tablet) 100 mg PO DAILY [facility] Last Admin: 11/24/24 08:51 Dose: 100 mg Documented By: Admin: 11/23/24 11:15 Dose: 100 mg Documented By: NEHA Naloxone HCl (Naloxone 0.4 Mg/Ml Vial) 0.2 mg IV Q2MIN PRN PRN Reason: Opiate Reversal Ondansetron HCl (Ondansetron 4 Mg/2 Ml Inj) 4 mg IV NOW ONE Stop: 11/22/24 13:34 Last Admin: 11/22/24 13:39 Dose: 4 mg Documented By: BABAK Sodium Chloride (Sodium Chloride 0.9% Flush) 10 ml IV PRN PRN PRN Reason: Flush Sodium Chloride (Sodium Chloride 0.9% Flush) 10 ml IV BID [facility] Last Admin: 11/24/24 08:51 Dose: 10 ml Documented By: Admin: 11/23/24 21:17 Dose: 10 ml Documented By: Admin: 11/23/24 10:34 Dose: Not Given Documented By: NEHA Tamsulosin HCl (Tamsulosin 0.4 Mg Capsule) 0.4 mg PO BEDTIME [facility] Last Admin: 11/23/24 21:17 Dose: 0.4 mg Documented By: LIZETTE Topiramate (Topiramate 100 Mg Tablet) 200 mg PO BID [facility] Last Admin: 11/24/24 08:51 Dose: 200 mg Documented By: Admin: 11/23/24 21:17 Dose: 200 mg Documented By: Admin: 11/23/24 11:15 Dose: 200 mg Documented By: NEHA Vitamin D (Cholecalciferol (Vitamin D3) 1,000 Unit Tablet) 2,000 unit PO DAILY [facility] Last Admin: 11/24/24 08:51 Dose: 2,000 unit Documented By: Admin: 11/23/24 11:15 Dose: 2,000 unit Documented By: NEHA Vital Signs Vital signs: Vital Signs - 8 hr 11/22/24 13:26 11/22/24 13:27 11/22/24 13:30 Temperature 98.1 F Pulse Rate 107 H 112 H 111 H Respiratory Rate 16 Blood Pressure 104/78 Pulse Oximetry 94 94 96 Oxygen Delivery Method Room Air 11/22/24 14:00 11/22/24 14:00 11/22/24 14:01 Temperature Pulse Rate 96 H Respiratory Rate 16 Blood Pressure 134/62 134/62 Pulse Oximetry 92 Oxygen Delivery Method 11/22/24 14:01 11/22/24 14:20 11/22/24 14:20 Temperature Pulse Rate 96 H 94 H Respiratory Rate 21 16 Blood Pressure 156/72 H Pulse Oximetry 92 95 Oxygen Delivery Method 11/22/24 14:30 11/22/24 14:30 11/22/24 14:50 Temperature Pulse Rate 93 H Respiratory Rate 14 Blood Pressure 135/67 141/93 H Pulse Oximetry 94 Oxygen Delivery Method 11/22/24 14:50 11/22/24 15:00 11/22/24 15:00 Temperature Pulse Rate 93 H 88 Respiratory Rate 15 15 Blood Pressure 143/71 H Pulse Oximetry 96 94 Oxygen Delivery Method <Jl Ochoa, DO - Last Filed: 11/22/24 18:32> Orders Ordered: Discontinued Medications Amlodipine Besylate (Amlodipine 5 Mg Tablet) 5 mg PO DAILY [facility] Last Admin: 11/24/24 08:51 Dose: 5 mg Documented By: Admin: 11/23/24 11:15 Dose: 5 mg Documented By: NEHA Atorvastatin Calcium (Atorvastatin 20 Mg Tablet) 20 mg PO DAILY [facility] Last Admin: 11/24/24 08:51 Dose: 20 mg Documented By: Admin: 11/23/24 11:15 Dose: 20 mg Documented By: NEHA Diphtheria/Tetanus/Acell Pertussis (Tet,Diph,Pertuss(Acell),Vac/Pf 0.5 Ml Syringe) 0.5 ml IM .ONCE ONE Stop: 11/22/24 13:42 Last Admin: 11/22/24 13:57 Dose: 0.5 ml Documented By: BABAK Sodium Chloride (Normal Saline 0.9%) 1,000 mls @ 1,000 mls/hr IV BOLUS ONE Stop: 11/22/24 14:33 Last Infusion: 11/22/24 14:13 Dose: Infused Documented By: Admin: 11/22/24 13:39 Dose: 1,000 mls/hr Documented By: BABAK Dextrose (D10w) 100 mls @ 1,200 mls/hr IV PRN PRN PRN Reason: Hypoglycemia Insulin Glargine (Insulin Glargine 100 Unit/Ml 3ml Pen) 30 unit SUBCUT BEDTIME [facility] Insulin Glargine (Insulin Glargine 100 Unit/Ml 3ml Pen) 30 unit SUBCUT NOW ONE Stop: 11/23/24 12:01 Last Admin: 11/23/24 12:54 Dose: 30 unit Documented By: NEHA Co-signed By: JABARI Insulin Glargine (Insulin Glargine 100 Unit/Ml 3ml Pen) 30 unit SUBCUT BEDTIME [facility] Insulin Glargine (Insulin Glargine 100 Unit/Ml 3ml Pen) 15 unit SUBCUT NOW ONE Stop: 11/24/24 12:01 Last Admin: 11/24/24 12:58 Dose: 15 unit Documented By: SHANNAN Co-signed By: SUGAR Insulin Glargine (Insulin Glargine 100 Unit/Ml 3ml Pen) 15 unit SUBCUT BEDTIME [facility] Stop: 11/24/24 21:01 Insulin Human Lispro (Insulin Lispro 100 Unit/Ml 3ml Vial) 5 unit SUBCUT AC [facility] Last Admin: 11/23/24 12:53 Dose: 5 unit Documented By: NEHA Co-signed By: JABARI Insulin Human Lispro (Insulin Lispro 100 Unit/Ml 3ml Vial) 0 unit SUBCUT ACHS [facility]; Protocol Last Admin: 11/24/24 08:03 Dose: Not Given Documented By: Admin: 11/23/24 21:15 Dose: Not Given Documented By: Admin: 11/23/24 16:46 Dose: 3 unit Documented By: NEHA Co-signed By: JABARI Admin: 11/23/24 12:54 Dose: 3 unit Documented By: NEHA Co-signed By: JABARI Insulin Human Lispro (Insulin Lispro 100 Unit/Ml 3ml Vial) 10 unit SUBCUT [facility] Last Admin: 11/24/24 08:04 Dose: Not Given Documented By: Admin: 11/23/24 16:47 Dose: 10 unit Documented By: NEHA Co-signed By: JABARI Insulin Human Lispro (Insulin Pump) 1 request MISC 0000 [facility] Insulin Human Lispro (Insulin Lispro 100 Unit/Ml 3ml Vial) 5 unit SUBCUT AC [facility] Insulin Human Lispro (Insulin Lispro 100 Unit/Ml 3ml Vial) [address] [facility]; Protocol Insulin Human Lispro (Insulin Lispro 100 Unit/Ml 3ml Vial) 10 unit SUBCUT AC [facility] Lamotrigine (Lamotrigine 100 Mg Tablet) 300 mg PO DAILY [facility] Last Admin: 11/24/24 08:51 Dose: 300 mg Documented By: Admin: 11/23/24 11:15 Dose: 300 mg Documented By: NEHA Lamotrigine (Lamotrigine 100 Mg Tablet) 350 mg PO BEDTIME [facility] Last Admin: 11/23/24 21:16 Dose: 350 mg Documented By: Admin: 11/23/24 01:09 Dose: 350 mg Documented By: FLAVIO Losartan Potassium (Losartan 50 Mg Tablet) 100 mg PO DAILY [facility] Last Admin: 11/24/24 08:51 Dose: 100 mg Documented By: Admin: 11/23/24 11:15 Dose: 100 mg Documented By: NEHA Naloxone HCl (Naloxone 0.4 Mg/Ml Vial) 0.2 mg IV Q2MIN PRN PRN Reason: Opiate Reversal Ondansetron HCl (Ondansetron 4 Mg/2 Ml Inj) 4 mg IV NOW ONE Stop: 11/22/24 13:34 Last Admin: 11/22/24 13:39 Dose: 4 mg Documented By: BABAK Sodium Chloride (Sodium Chloride 0.9% Flush) 10 ml IV PRN PRN PRN Reason: Flush Sodium Chloride (Sodium Chloride 0.9% Flush) 10 ml IV BID [facility] Last Admin: 11/24/24 08:51 Dose: 10 ml Documented By: Admin: 11/23/24 21:17 Dose: 10 ml Documented By: Admin: 11/23/24 10:34 Dose: Not Given Documented By: NEHA Tamsulosin HCl (Tamsulosin 0.4 Mg Capsule) 0.4 mg PO BEDTIME [facility] Last Admin: 11/23/24 21:17 Dose: 0.4 mg Documented By: LIZETTE Topiramate (Topiramate 100 Mg Tablet) 200 mg PO BID [facility] Last Admin: 11/24/24 08:51 Dose: 200 mg Documented By: Admin: 11/23/24 21:17 Dose: 200 mg Documented By: Admin: 11/23/24 11:15 Dose: 200 mg Documented By: NEHA Vitamin D (Cholecalciferol (Vitamin D3) 1,000 Unit Tablet) 2,000 unit PO DAILY [facility] Last Admin: 11/24/24 08:51 Dose: 2,000 unit Documented By: Admin: 11/23/24 11:15 Dose: 2,000 unit Documented By: NEHA Vital Signs Vital signs: Vital Signs - 8 hr 11/22/24 13:26 11/22/24 13:27 11/22/24 13:30 Temperature 98.1 F Pulse Rate 107 H 112 H 111 H Respiratory Rate 16 Blood Pressure 104/78 Pulse Oximetry 94 94 96 Oxygen Delivery Method Room Air 11/22/24 14:00 11/22/24 14:00 11/22/24 14:01 Temperature Pulse Rate 96 H Respiratory Rate 16 Blood Pressure 134/62 134/62 Pulse Oximetry 92 Oxygen Delivery Method 11/22/24 14:01 11/22/24 14:20 11/22/24 14:20 Temperature Pulse Rate 96 H 94 H Respiratory Rate 21 16 Blood Pressure 156/72 H Pulse Oximetry 92 95 Oxygen Delivery Method 11/22/24 14:30 11/22/24 14:30 11/22/24 14:50 Temperature Pulse Rate 93 H Respiratory Rate 14 Blood Pressure 135/67 141/93 H Pulse Oximetry 94 Oxygen Delivery Method 11/22/24 14:50 11/22/24 15:00 11/22/24 15:00 Temperature Pulse Rate 93 H 88 Respiratory Rate 15 15 Blood Pressure 143/71 H Pulse Oximetry 96 94 Oxygen Delivery Method MDM - Altered Mental Status <Magalie Grewal MD - Last Filed: 11/25/24 19:09> Lab Data 11/22/24 13:30 11/22/24 13:30 Labs: Lab Results 11/22/24 11/22/24 11/22/24 Range/Units 13:26 13:30 14:46 WBC 6.3 (4.5-11.0) X10^3/uL RBC 5.51 (4.5-5.9) X10^6/uL Hgb 16.4 (13.5-17.5) g/dL Hct 48.5 (41-53) % MCV 88.1 (80-100) fL MCH 29.7 (26-34) PG MCHC 33.7 (30-36) % RDW 13.9 (11.6-14.8) % Plt Count 180 (150-400) X10^3/uL Neut % (Auto) 71.1 (50-75) % Lymph % (Auto) 19.0 L (25-40) % [place] % (Auto) 7.3 (3-14) % Eos % (Auto) 1.7 L (2-4) % Baso % (Auto) 0.9 (0-2) % Neut # (Auto) 4500 (3636-3043) /uL Lymph # (Auto) 1200 (4273-2707) /uL [place] # (Auto) 500 (0-900) /uL Eos # (Auto) 100 (0-450) /uL Baso # (Auto) 100 (0-100) /uL D-Dimer 332 (<500) ng/ml Sodium 139 (137-145) mmol/L Potassium 4.3 (3.4-5.1) mmol/L Chloride 107 (98-107) mmol/L Carbon Dioxide 21 L (22-32) mmol/L BUN 25 H (9-20) mg/dL Creatinine 1.35 H (0.66-1.25) mg/dL Estimated GFR 55 L (>60) mL/min BUN/Creatinine Ratio 18.5 (6-22) Glucose 176 H (70-99) mg/dL POC Whole Bld Glucose 181 H (70-99) mg/dL Hemoglobin A1c 6.0 (4.0-6.0) % Calcium 9.2 (8.4-10.2) mg/dL Total Bilirubin 0.7 (0.2-1.3) mg/dL AST 30 (17-59) IU/L ALT 30 (<50) IU/L Alkaline Phosphatase 97 (38-126) U/L Total Creatine Kinase 221 H (55-170) U/L Troponin I < 0.012 (0.01-0.034) ng/mL Total Protein 7.4 (6.3-8.2) g/dL Albumin 4.6 (3.5-5.0) g/dL Globulin 2.8 (1.7-4.1) g/dL Albumin/Globulin Ratio 1.6 (1.0-2.8) Urine Color Yellow Urine Appearance Clear Urine pH 6.5 (4.5-8.0) Ur Specific [place] 1.015 (1.000-1.035) Urine Protein Negative (Negative) Urine Glucose (UA) 3+ H (Negative) g/dL Urine Ketones Negative (NEGATIVE) Urine Occult Blood Negative (Negative) Urine Nitrate Negative (Negative) Urine Bilirubin Negative (NEGATIVE) Urine Urobilinogen 1.0 (0.2) E.U./dL Ur Leukocyte Esterase Negative (NEGATIVE) Urine RBC None seen (0-5/HPF) Urine WBC 0-1/hpf (0-5/HPF) Ur Squamous Epith Cells None seen (0-5/HPF) Urine Bacteria Occasional (0-1) (None) Ur Culture Indicated? Cult not indicated Vol Urine Centrifuged 10ml (spun) U Opiates 300ng/mL cut Negative (Negative) Ur Oxycodone Screen Negative (Negative) Urine Methadone Screen Negative (Negative) Ur Barbiturates Screen Negative (Negative) U Tricyclic Antidepress Negative (Negative) Ur Phencyclidine Scrn Negative (Negative) Ur Amphetamines Screen Negative (Negative) U Methamphetamines Scrn Negative (Negative) Ur MDMA Scrn (Ecstasy) Negative (Negative) U Benzodiazepines Scrn Negative (Negative) Urine Cocaine Screen Negative (Negative) U Marijuana (THC) Screen Negative (Negative) Urine Specific [place] (Normal) Ethyl Alcohol < 10 (<10) mg/dL Ur Creatinine (Normal) 11/22/24 11/22/24 Range/Units 14:46 16:46 WBC (4.5-11.0) X10^3/uL RBC (4.5-5.9) X10^6/uL Hgb (13.5-17.5) g/dL Hct (41-53) % MCV (80-100) fL MCH (26-34) PG MCHC (30-36) % RDW (11.6-14.8) % Plt Count (150-400) X10^3/uL Neut % (Auto) (50-75) % Lymph % (Auto) (25-40) % [place] % (Auto) (3-14) % Eos % (Auto) (2-4) % Baso % (Auto) (0-2) % Neut # (Auto) (0987-3817) /uL Lymph # (Auto) (3514-8481) /uL [place] # (Auto) (0-900) /uL Eos # (Auto) (0-450) /uL Baso # (Auto) (0-100) /uL D-Dimer (<500) ng/ml Sodium (137-145) mmol/L Potassium (3.4-5.1) mmol/L Chloride (98-107) mmol/L Carbon Dioxide (22-32) mmol/L BUN (9-20) mg/dL Creatinine (0.66-1.25) mg/dL Estimated GFR (>60) mL/min BUN/Creatinine Ratio (6-22) Glucose (70-99) mg/dL POC Whole Bld Glucose (70-99) mg/dL Hemoglobin A1c (4.0-6.0) % Calcium (8.4-10.2) mg/dL Total Bilirubin (0.2-1.3) mg/dL AST (17-59) IU/L ALT (<50) IU/L Alkaline Phosphatase (38-126) U/L Total Creatine Kinase (55-170) U/L Troponin I 0.035 H (0.01-0.034) ng/mL Total Protein (6.3-8.2) g/dL Albumin (3.5-5.0) g/dL Globulin (1.7-4.1) g/dL Albumin/Globulin Ratio (1.0-2.8) Urine Color Urine Appearance Urine pH Normal (4.5-8.0) Ur Specific [place] (1.000-1.035) Urine Protein (Negative) Urine Glucose (UA) (Negative) g/dL Urine Ketones (NEGATIVE) Urine Occult Blood (Negative) Urine Nitrate (Negative) Urine Bilirubin (NEGATIVE) Urine Urobilinogen (0.2) E.U./dL Ur Leukocyte Esterase (NEGATIVE) Urine RBC (0-5/HPF) Urine WBC (0-5/HPF) Ur Squamous Epith Cells (0-5/HPF) Urine Bacteria (None) Ur Culture Indicated? Vol Urine Centrifuged U Opiates 300ng/mL cut (Negative) Ur Oxycodone Screen (Negative) Urine Methadone Screen (Negative) Ur Barbiturates Screen (Negative) U Tricyclic Antidepress (Negative) Ur Phencyclidine Scrn (Negative) Ur Amphetamines Screen (Negative) U Methamphetamines Scrn (Negative) Ur MDMA Scrn (Ecstasy) (Negative) U Benzodiazepines Scrn (Negative) Urine Cocaine Screen (Negative) U Marijuana (THC) Screen (Negative) Urine Specific [place] Normal (Normal) Ethyl Alcohol (<10) mg/dL Ur Creatinine Normal (Normal) MDM Narrative Medical decision making narrative: In brief, this is a 73-year-old male who was referred to the emergency department from the walk-in clinic for altered mental status. History as above In chart review: I see he has history of seizure disorder, CKD 3, hypertension, hyperlipidemia, diabetes On arrival to the emergency department, the patient has a normal blood sugar. He is oriented x3 but has poor recollection of events. He repeatedly states that he fell. He is noted to have an abrasion over his cheek that appears acute. He has not had any pain he says and there is no reaction with palpation over the bony prominences of the extremities head or neck. Differential diagnoses considered but not limited to: Seizure, concussion 2/2 trauma, hemorrhage, fracture/C-spine injury less likely clinically, toxidrome Initial treatment plan includes: CT head and neck, laboratories, laboratories, urine drug screen, ETOH level, IVF bolus for tachycardia EKG 1332 sinus tachycardia first-degree AV block with AR of 224. Heart rate 112, QRS broad 136 with right bundle-branch block pattern. QTC 417 with left axis. Not meeting Sgarbossa criteria for STEMI. (No ST elevation greater than 1 mm in lead with concordant QRS complex. No ST depression greater than 1 mm in leads V1, V2 or V3. No ST elevation greater than 5 mm in lead with discordant QRS complex) arrives shortly after 2:00 p.m. and provide some collateral history. Reportedly she and him had driven to the hospital as she had a doctor's appointment. He was in the car with her in the dog. That was the last that she saw are heard of him. She reports that this morning was acting a bit ?goofy? but did not have an abrasion when she left for her appointment and left him in the car. <Jl Ochoa, DO - Last Filed: 11/22/24 18:32> Lab Data Labs: Lab Results 11/22/24 11/22/24 11/22/24 Range/Units 13:26 13:30 14:46 WBC 6.3 (4.5-11.0) X10^3/uL RBC 5.51 (4.5-5.9) X10^6/uL Hgb 16.4 (13.5-17.5) g/dL Hct 48.5 (41-53) % MCV 88.1 (80-100) fL MCH 29.7 (26-34) PG MCHC 33.7 (30-36) % RDW 13.9 (11.6-14.8) % Plt Count 180 (150-400) X10^3/uL Neut % (Auto) 71.1 (50-75) % Lymph % (Auto) 19.0 L (25-40) % [place] % (Auto) 7.3 (3-14) % Eos % (Auto) 1.7 L (2-4) % Baso % (Auto) 0.9 (0-2) % Neut # (Auto) 4500 (9462-8940) /uL Lymph # (Auto) 1200 (5996-0513) /uL [place] # (Auto) 500 (0-900) /uL Eos # (Auto) 100 (0-450) /uL Baso # (Auto) 100 (0-100) /uL D-Dimer 332 (<500) ng/ml Sodium 139 (137-145) mmol/L Potassium 4.3 (3.4-5.1) mmol/L Chloride 107 (98-107) mmol/L Carbon Dioxide 21 L (22-32) mmol/L BUN 25 H (9-20) mg/dL Creatinine 1.35 H (0.66-1.25) mg/dL Estimated GFR 55 L (>60) mL/min BUN/Creatinine Ratio 18.5 (6-22) Glucose 176 H (70-99) mg/dL POC Whole Bld Glucose 181 H (70-99) mg/dL Hemoglobin A1c 6.0 (4.0-6.0) % Calcium 9.2 (8.4-10.2) mg/dL Total Bilirubin 0.7 (0.2-1.3) mg/dL AST 30 (17-59) IU/L ALT 30 (<50) IU/L Alkaline Phosphatase 97 (38-126) U/L Total Creatine Kinase 221 H (55-170) U/L Troponin I < 0.012 (0.01-0.034) ng/mL Total Protein 7.4 (6.3-8.2) g/dL Albumin 4.6 (3.5-5.0) g/dL Globulin 2.8 (1.7-4.1) g/dL Albumin/Globulin Ratio 1.6 (1.0-2.8) Urine Color Yellow Urine Appearance Clear Urine pH 6.5 (4.5-8.0) Ur Specific [place] 1.015 (1.000-1.035) Urine Protein Negative (Negative) Urine Glucose (UA) 3+ H (Negative) g/dL Urine Ketones Negative (NEGATIVE) Urine Occult Blood Negative (Negative) Urine Nitrate Negative (Negative) Urine Bilirubin Negative (NEGATIVE) Urine Urobilinogen 1.0 (0.2) E.U./dL Ur Leukocyte Esterase Negative (NEGATIVE) Urine RBC None seen (0-5/HPF) Urine WBC 0-1/hpf (0-5/HPF) Ur Squamous Epith Cells None seen (0-5/HPF) Urine Bacteria Occasional (0-1) (None) Ur Culture Indicated? Cult not indicated Vol Urine Centrifuged 10ml (spun) U Opiates 300ng/mL cut Negative (Negative) Ur Oxycodone Screen Negative (Negative) Urine Methadone Screen Negative (Negative) Ur Barbiturates Screen Negative (Negative) U Tricyclic Antidepress Negative (Negative) Ur Phencyclidine Scrn Negative (Negative) Ur Amphetamines Screen Negative (Negative) U Methamphetamines Scrn Negative (Negative) Ur MDMA Scrn (Ecstasy) Negative (Negative) U Benzodiazepines Scrn Negative (Negative) Urine Cocaine Screen Negative (Negative) U Marijuana (THC) Screen Negative (Negative) Urine Specific [place] (Normal) Ethyl Alcohol < 10 (<10) mg/dL Ur Creatinine (Normal) 11/22/24 11/22/24 Range/Units 14:46 16:46 WBC (4.5-11.0) X10^3/uL RBC (4.5-5.9) X10^6/uL Hgb (13.5-17.5) g/dL Hct (41-53) % MCV (80-100) fL MCH (26-34) PG MCHC (30-36) % RDW (11.6-14.8) % Plt Count (150-400) X10^3/uL Neut % (Auto) (50-75) % Lymph % (Auto) (25-40) % [place] % (Auto) (3-14) % Eos % (Auto) (2-4) % Baso % (Auto) (0-2) % Neut # (Auto) (2940-1968) /uL Lymph # (Auto) (4362-1253) /uL [place] # (Auto) (0-900) /uL Eos # (Auto) (0-450) /uL Baso # (Auto) (0-100) /uL D-Dimer (<500) ng/ml Sodium (137-145) mmol/L Potassium (3.4-5.1) mmol/L Chloride (98-107) mmol/L Carbon Dioxide (22-32) mmol/L BUN (9-20) mg/dL Creatinine (0.66-1.25) mg/dL Estimated GFR (>60) mL/min BUN/Creatinine Ratio (6-22) Glucose (70-99) mg/dL POC Whole Bld Glucose (70-99) mg/dL Hemoglobin A1c (4.0-6.0) % Calcium (8.4-10.2) mg/dL Total Bilirubin (0.2-1.3) mg/dL AST (17-59) IU/L ALT (<50) IU/L Alkaline Phosphatase (38-126) U/L Total Creatine Kinase (55-170) U/L Troponin I 0.035 H (0.01-0.034) ng/mL Total Protein (6.3-8.2) g/dL Albumin (3.5-5.0) g/dL Globulin (1.7-4.1) g/dL Albumin/Globulin Ratio (1.0-2.8) Urine Color Urine Appearance Urine pH Normal (4.5-8.0) Ur Specific [place] (1.000-1.035) Urine Protein (Negative) Urine Glucose (UA) (Negative) g/dL Urine Ketones (NEGATIVE) Urine Occult Blood (Negative) Urine Nitrate (Negative) Urine Bilirubin (NEGATIVE) Urine Urobilinogen (0.2) E.U./dL Ur Leukocyte Esterase (NEGATIVE) Urine RBC (0-5/HPF) Urine WBC (0-5/HPF) Ur Squamous Epith Cells (0-5/HPF) Urine Bacteria (None) Ur Culture Indicated? Vol Urine Centrifuged U Opiates 300ng/mL cut (Negative) Ur Oxycodone Screen (Negative) Urine Methadone Screen (Negative) Ur Barbiturates Screen (Negative) U Tricyclic Antidepress (Negative) Ur Phencyclidine Scrn (Negative) Ur Amphetamines Screen (Negative) U Methamphetamines Scrn (Negative) Ur MDMA Scrn (Ecstasy) (Negative) U Benzodiazepines Scrn (Negative) Urine Cocaine Screen (Negative) U Marijuana (THC) Screen (Negative) Urine Specific [place] Normal (Normal) Ethyl Alcohol (<10) mg/dL Ur Creatinine Normal (Normal) Imaging Data CT scan - head: Radiologist's Impression: [place] [address] CT Scan Report Signed Patient: John Perez MR#: [id number] : 1950 Acct:[id number] Age/Sex: 73 / M Date of Service: 11/22/24 Loc: ED Accession Number: [id number] Procedure: CT head/brain wo con Ordering Provider: Magalie Grewal MD PROCEDURE: CT HEAD/BRAIN WO CON INDICATIONS: fall ams TECHNIQUE: Noncontrast 4.5 mm thick angled axial sections acquired from the foramen magnum to the vertex, with coronal and sagittal reformats. For radiation dose reduction, the following was used: automated exposure control, adjustment of mA and/or kV according to patient size. COMPARISON: [facility], CT, CT HEAD/BRAIN WO CON, 05/23/2023, 15:17. FINDINGS: Image quality: Diagnostic. CSF spaces: Basal cisterns are patent. No extra-axial fluid collections. The ventricles are symmetric in size and shape. Brain: No intracranial bleeds or mass effect. There is cerebral volume loss, with resultant ventricular and sulcal prominence. There are periventricular and deep white matter chronic small vessel ischemic changes. There is intracranial internal carotid artery atherosclerosis. Skull and face: Left height frontal parietal scalp hematoma is seen. Calvarium and visualized facial bones appear intact, without suspicious lesions. Sinuses: Visualized sinuses and mastoids are clear. IMPRESSION: No acute intracranial pathology. Left posterior frontal parietal scalp hematoma without acute skull fracture. CT - cervical spine: Radiologist's Impression: [place] [address] CT Scan Report Signed Patient: John Perez MR#: [id number] : 1950 Acct:[id number] Age/Sex: 73 / M Date of Service: 11/22/24 Loc: ED Accession Number: [id number] Procedure: CT cervical spine wo con Ordering Provider: Magalie Grewal MD PROCEDURE: CT CERVICAL SPINE WO CON INDICATIONS: fall, altered TECHNIQUE: Noncontrast 3 mm thick sections acquired from the skull base to the T4 level. Sagittal and coronal reformats were then constructed. For radiation dose reduction, the following was used: automated exposure control, adjustment of mA and/or kV according to patient size. COMPARISON: [facility], CT, CT CERVICAL SPINE WO CON, 07/02/2023, 14:32. FINDINGS: Image quality: Excellent. Bones: No acute fractures or dislocations. Chronic compression deformity involving C5 vertebral body unchanged from prior studies. Mild chronic appearing compression deformities also noted at T3, T4 and T5 levels. Visualized superior ribs are intact. Soft tissues: Prevertebral soft tissues are normal in thickness. No paravertebral hematomas. No apical pneumothoraces. IMPRESSION: 1. No displaced fracture or traumatic subluxation. 2. Chronic appearing compression deformities as above, unchanged from prior study. MDM Narrative Medical decision making narrative: In brief, this is a 73-year-old male who was referred to the emergency department from the walk-in clinic for altered mental status. History as above In chart review: I see he has history of seizure disorder, CKD 3, hypertension, hyperlipidemia, diabetes On arrival to the emergency department, the patient has a normal blood sugar. He is oriented x3 but has poor recollection of events. He repeatedly states that he fell. He is noted to have an abrasion over his cheek that appears acute. He has not had any pain he says and there is no reaction with palpation over the bony prominences of the extremities head or neck. Differential diagnoses considered but not limited to: Seizure, concussion 2/2 trauma, hemorrhage, fracture/C-spine injury less likely clinically, toxidrome Initial treatment plan includes: CT head and neck, laboratories, laboratories, urine drug screen, ETOH level, IVF bolus for tachycardia EKG 1332 sinus tachycardia first-degree AV block with AR of 224. Heart rate 112, QRS broad 136 with right bundle-branch block pattern. QTC 417 with left axis. Not meeting Sgarbossa criteria for STEMI. (No ST elevation greater than 1 mm in lead with concordant QRS complex. No ST depression greater than 1 mm in leads V1, V2 or V3. No ST elevation greater than 5 mm in lead with discordant QRS complex) arrives shortly after 2:00 p.m. and provide some collateral history. Reportedly she and him had driven to the hospital as she had a doctor's appointment. He was in the car with her in the dog. That was the last that she saw are heard of him. She reports that this morning was acting a bit ?goofy? but did not have an abrasion when she left for her appointment and left him in the car. All lab work, vital signs, nurse triage note, medication list, previous ER visits, and all imaging studies reviewed. CT cervical spine showed no displaced fracture or traumatic subluxation. Chronic appearing compression deformities as above unchanged from prior study. WBC 6.3 hemoglobin 16.4 platelet 180 D-dimer 332 sodium 139 potassium 4.3 chloride 107 BUN 25 creatinine 1.35 glucose 176 LFTs normal. Troponin 1st set less than 0.012. Second set 0.035. Heart score 6. Case discussed with Dr. Rich cardiology to admit to hospitalist service and will need stress test tommorow per . Case d/w who has graciously accepted the patient for inpatient admission. Discharge Plan Departure Patient Disposition: Admitted as Observation Clinical Impression: Elevated troponin CHI (closed head injury) Qualifiers: Encounter type: initial encounter Qualified Code(s): S09.90XA - Unspecified injury of head, initial encounter Admit Date/Time: 11/22/24 18:33 Admit Provider: Segun Pena
[2024-11-22] MEDS: ONDANSETRON 4 MG/2 ML INJ IV (13:39)
[2024-11-22] MEDS: SODIUM CHLORIDE 0.9% 1,000 ML 1000 ML IV (13:39)
[2024-11-22 13:43] LABS: Add Manual Diff / Slide Review NO; Hematocrit 48.5 % (41-53); Hemoglobin 16.4 g/dL (13.5-17.5); Lymphocytes Absolute Auto 1200 /uL (1100-4500); Mean Corpuscular HGB Conc 33.7 % (30-36); Mean Corpuscular Hemoglobin 29.7 PG (26-34); Mean Corpuscular Volume 88.1 fL (80-100); Platelet Count 180 X10^3/uL (150-400)
[2024-11-22 13:50] LABS: Alanine Aminotransferase 30 IU/L (<50); Albumin 4.6 g/dL (3.5-5.0); Albumin Globulin Ratio 1.6 (1.0-2.8); Alkaline Phosphatase 97 U/L (38-126); Blood Urea Nitrogen 25 mg/dL (9-20); Calcium 9.2 mg/dL (8.4-10.2); Carbon Dioxide 21 mmol/L (22-32); Chloride 107 mmol/L (98-107); Estimated Glomerular Filt Rate 55 mL/min (>60); Ethanol (ETOH) < 10 mg/dL (<10); Globulin 2.8 g/dL (1.7-4.1); Glucose 176 mg/dL (70-99); HEMOLYSIS < 15 (0-50); Potassium 4.3 mmol/L (3.4-5.1); Sodium 139 mmol/L (137-145); Total Protein 7.4 g/dL (6.3-8.2)
[2024-11-22] MEDS: TET,DIPH,PERTUSS(ACELL),VAC/PF 0.5 ML SYRINGE IM (13:57)
--- NOTE | 2024-11-22 14:15 | PC.NURSE ---
Patient's arrived to ER. States this morning around 0900 patient was not able to comprehend things he normally would Appeared off had appointment at clinic. Left patient in care with the dog. He was gone after her appointment.
--- NOTE | 2024-11-22 14:55 | PC.NURSE ---
Pt pulling off electrodes and pulse ox. Inforned we need to keep these on him to trend his vitals. Pt able to urinate on his own. Pt still confused. oriented to himself and knows he is in the hospital for confusion
[2024-11-22 15:00] LABS: Appearance Urine UA CLEAR; Bilirubin Urine UA NEGATIVE (NEGATIVE); Color Urine UA YELLOW; Glucose Urine UA 3+ g/dL (Negative); Ketones Urine UA NEGATIVE (NEGATIVE); Leukocyte Esterase Urine UA NEGATIVE (NEGATIVE); Nitrite Urine UA NEGATIVE (Negative); Occult Blood Urine UA NEGATIVE (Negative); Protein Urine UA NEGATIVE (Negative); Specific Gravity Urine UA 1.015 (1.000-1.035); Ur Creatinine Normal (Normal); Ur Specific Gravity Normal (Normal); Urine MDMA Negative (Negative); Urine Methamphetamines Negative (Negative); Urine THC Negative (Negative); Urine Tricyclic Antidepressant Negative (Negative); Urine pH Normal (Normal); Urobilinogen Urine UA 1.0 E.U./dL (0.2); pH Urine UA 6.5 (4.5-8.0)
[2024-11-22 15:05] LABS: Culture Indicated Urine Cult Not Indicated
[2024-11-22 15:24] LABS: Troponin I < 0.012 ng/mL (0.01-0.034)
[2024-11-22 17:19] LABS: Troponin I 0.035 ng/mL (0.01-0.034)
--- NOTE | 2024-11-22 17:27 | PC.NURSE ---
at bedside reporting that patient did have a fall today that she witnessed but reports the patient was acting confused and off prior to that as well
--- NOTE | 2024-11-22 17:36 | DI.RAD.S_ITS ---
PROCEDURE: XR CHEST 1V INDICATIONS: chest pain TECHNIQUE: One view of the chest was acquired. COMPARISON: [facility], CR, XR CHEST 1V, 05/23/2023, 14:41. [facility], CR, XR CHEST 1V, 01/13/2022, 8:32. FINDINGS: Surgical changes and devices: None. Lungs and pleura: Bilateral basilar linear densities. No confluent consolidation. Mediastinum: Mediastinal contours appear normal. Heart size is normal. Bones and chest wall: No suspicious bony lesions. Overlying soft tissues appear unremarkable. IMPRESSION: Bilateral basilar atelectasis, no definite focal infiltrate. Dictated by: Darius Carcamo M.D. on 11/22/2024 at 18:35 Approved by: Darius Carcamo M.D. on 11/22/2024 at 18:36
--- NOTE | 2024-11-22 17:39 | EKG_ITS ---
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
--- NOTE | 2024-11-22 18:34 | PM.HP.1 ---
History of Present Illness History of Present Illness Date Patient Seen: 11/22/24 Chief complaint: confusion, blood on face Narrative: Chief complaint: Anterograde and retrograde amnesia after concussion History of present illness: 11/22: 73-year-old male likely had a fall does not remember drove by personal vehicle from [place] was noted by ER staff to have blood in his face and abrasion under his nose and on his left mormonism. arrives shortly after 2:00 p.m. and provide some collateral history. Reportedly she and him had driven to the hospital as she had a doctor's appointment. He was in the car with her in the dog. That was the last that she saw are heard of him. She reports that this morning was acting a bit ?goofy? but did not have an abrasion when she left for her appointment and left him in the car. In the emergency room he was evaluated findings there include: CT head: Left posterior frontal scalp hematoma without skull fracture no acute intracranial pathology CT cervical spine shows no fracture subluxation or dislocation Hemogram and comprehensive metabolic unremarkable Initial troponin unmeasurable 3 hour troponin 0.035 EKG sinus rhythm no acute ST segments or T-wave changes Review of systems: Limited due to patient's poor memory Does not recall having: chest pain palpitations shortness for breath Nausea vomiting diarrhea Abdominal pain Urinary Paresthesia or paresis Physical exam: General pleasant but somewhat confused difficulty finding answers to questions but articulate HEENT abrasion on face under nose and a hematoma of the left scalp Extraocular motions intact Neck normal range of motion no paresthesia in upper extremities with movement No carotid bruit Heart rate and rhythm regular no murmurs Lungs clear Abdomen benign Extremities no edema Neurologic exam: Alert and oriented x3 NIH Cranial nerves Pfnohv-rl-afqo intact 5/5 strength x4 Gait is Mental status recalls 0 objects in 3 minutes Can not do serial 7 Can do arithmetic Can spell the word world but not backwards For objective laboratory and imaging please see the bottom of the note: Assessment and plan: Indirect evidence of blunt head trauma unknown causality from probable fall as evidenced by abrasion and scalp hematoma the postconcussive symptoms anterograde and retrograde amnesia Placed in observation Neurochecks q.[address] scan if there is any transfer changes Slight elevation of troponin .03 Favor musculoskeletal origin over cardiac nurse ob Serial troponin Stress test in the morning DVT prophylaxis: SCDs only due to hematoma Code status: Full code blue Disposition: Observation on telemetry Time based billin minutes were involved in evaluation of this patient including [id number]-[id number] evaluation physical examination review of objective laboratory and imaging including direct view of images discussion with emergency provider and treatment team [facility] Medical History Arthritis of carpometacarpal (CMC) joint of left thumb Family history of colon cancer in mother Primary osteoarthritis involving multiple joints Obesity (BMI 30.0-34.9) Diabetic retinopathy Stage 3b chronic kidney disease (CKD) Mixed hyperlipidemia Essential hypertension Type 2 diabetes mellitus with stage 3b chronic kidney disease Erectile dysfunction due to diabetes mellitus BPH w urinary obs/LUTS Elevated PSA Seizure disorder Surgical History Hx of prostate biopsy Family History Father Diabetes mellitus Grandfather Diabetes mellitus Social History marital status: details: 1 adopted children, 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: spouse Smoking Status: Never smoker alcohol intake: current caffeine: Yes Meds Home Medications and Allergies Home Medications ?Medication ?Instructions ?Recorded ?Confirmed ?Type cholecalciferol (vitamin D3) 50 1 cap PO DAILY 06/22/18 10/12/24 History mcg (2,000 unit) capsule (Vitamin D3) topiramate 200 mg tablet 200 mg PO BID #180 tabs 04/10/22 10/12/24 Rx lamotrigine 200 mg tablet 200 mg PO .COMPLEX 06/26/23 10/12/24 History glucagon 3 mg/actuation nasal spray 3 mg intranasal ONCE #2 ea 10/10/23 10/12/24 Rx blood-glucose,barking machine feeder,cont #1 ea 03/12/24 10/12/24 Rx (Dexcom G7 Medical Billing Service) insulin aspart 20 unit SUBCUT TIDWMEAL #15 mL 03/12/24 10/12/24 Rx (niacinamide)(U-100) 100 unit/mL(3 mL) subcutaneous pen (Fiasp FlexTouch U-100 Insulin) insulin glargine 100 unit/mL (3 70 unit (0.7 mL) SUBCUT QPM #15 mL 03/12/24 10/12/24 Rx mL) subcutaneous pen (Basaglar KwikPen U-100 Insulin) insulin aspart U-100 100 unit/mL See Rx Instructions SUBCUT 03/29/24 10/12/24 Rx subcutaneous solution USEASDIRECTD #10 mL insulin pump cart,auto,BT,G6/7 #10 ea 05/19/24 10/12/24 Rx (Omnipod 5 G6-G7 Pods (Gen 5) subcutaneous cartridge) losartan 100 mg tablet 100 mg PO DAILY #90 tabs 06/21/24 10/12/24 Rx amlodipine 5 mg tablet 5 mg PO DAILY #90 tabs 07/06/24 10/12/24 Rx atorvastatin 20 mg tablet 20 mg PO DAILY #90 tabs 09/02/24 10/12/24 Rx tamsulosin 0.4 mg capsule 0.4 mg PO BEDTIME #90 caps 09/21/24 10/12/24 Rx empagliflozin 25 mg tablet 25 mg PO DAILY #90 tabs 10/12/24 10/12/24 Rx (Jardiance) blood-glucose sensor (Dexcom G7 #9 ea 10/25/24 Rx Sensor device) Allergies Allergy/AdvReac Type Severity Reaction Status Date / Time finasteride AdvReac Mild breast pain Verified 10/12/24 14:55 Exam Vital Signs (past 8 hours): - 11/22/24 13:26 11/22/24 13:27 11/22/24 13:30 Temperature 98.1 F Pulse Rate 107 H 112 H 111 H Respiratory Rate 16 Blood Pressure 104/78 Pulse Oximetry 94 94 96 Oxygen Delivery Method Room Air 11/22/24 14:00 11/22/24 14:00 11/22/24 14:01 Temperature Pulse Rate 96 H Respiratory Rate 16 Blood Pressure 134/62 134/62 Pulse Oximetry 92 Oxygen Delivery Method 11/22/24 14:01 11/22/24 14:20 11/22/24 14:20 Temperature Pulse Rate 96 H 94 H Respiratory Rate 21 16 Blood Pressure 156/72 H Pulse Oximetry 92 95 Oxygen Delivery Method 11/22/24 14:30 11/22/24 14:30 11/22/24 14:50 Temperature Pulse Rate 93 H Respiratory Rate 14 Blood Pressure 135/67 141/93 H Pulse Oximetry 94 Oxygen Delivery Method 11/22/24 14:50 10/06/25 15:00 11/22/24 15:00 Temperature Pulse Rate 93 H 88 Respiratory Rate 15 15 Blood Pressure 143/71 H Pulse Oximetry 96 94 Oxygen Delivery Method Oxygen Delivery Method Room Air Objective Labs 11/22/24 13:30 11/22/24 13:30 Labs: Laboratory Results - last 24 hr 11/22/24 11/22/24 11/22/24 13:26 13:30 14:46 WBC 6.3 RBC 5.51 Hgb 16.4 Hct 48.5 MCV 88.1 MCH 29.7 MCHC 33.7 RDW 13.9 Plt Count 180 Neut % (Auto) 71.1 Lymph % (Auto) 19.0 L [place] % (Auto) 7.3 Eos % (Auto) 1.7 L Baso % (Auto) 0.9 Neut # (Auto) 4500 Lymph # (Auto) 1200 [place] # (Auto) 500 Eos # (Auto) 100 Baso # (Auto) 100 D-Dimer 332 Sodium 139 Potassium 4.3 Chloride 107 Carbon Dioxide 21 L BUN 25 H Creatinine 1.35 H Estimated GFR 55 L BUN/Creatinine Ratio 18.5 Glucose 176 H POC Whole Bld Glucose 181 H Calcium 9.2 Total Bilirubin 0.7 AST 30 ALT 30 Alkaline Phosphatase 97 Troponin I < 0.012 Total Protein 7.4 Albumin 4.6 Globulin 2.8 Albumin/Globulin Ratio 1.6 Urine Color Yellow Urine Appearance Clear Urine pH 6.5 Ur Specific [place] 1.015 Urine Protein Negative Urine Glucose (UA) 3+ H Urine Ketones Negative Urine Occult Blood Negative Urine Nitrate Negative Urine Bilirubin Negative Urine Urobilinogen 1.0 Ur Leukocyte Esterase Negative Urine RBC None seen Urine WBC 0-1/hpf Ur Squamous Epith Cells None seen Urine Bacteria Occasional (0-1) Ur Culture Indicated? Cult not indicated Vol Urine Centrifuged 10ml (spun) U Opiates 300ng/mL cut Negative Ur Oxycodone Screen Negative Urine Methadone Screen Negative Ur Barbiturates Screen Negative U Tricyclic Antidepress Negative Ur Phencyclidine Scrn Negative Ur Amphetamines Screen Negative U Methamphetamines Scrn Negative Ur MDMA Scrn (Ecstasy) Negative U Benzodiazepines Scrn Negative Urine Cocaine Screen Negative U Marijuana (THC) Screen Negative Urine Specific [place] Ethyl Alcohol < 10 Ur Creatinine 11/22/24 11/22/24 14:46 16:46 WBC RBC Hgb Hct MCV MCH MCHC RDW Plt Count Neut % (Auto) Lymph % (Auto) [place] % (Auto) Eos % (Auto) Baso % (Auto) Neut # (Auto) Lymph # (Auto) [place] # (Auto) Eos # (Auto) Baso # (Auto) D-Dimer Sodium Potassium Chloride Carbon Dioxide BUN Creatinine Estimated GFR BUN/Creatinine Ratio Glucose POC Whole Bld Glucose Calcium Total Bilirubin AST ALT Alkaline Phosphatase Troponin I 0.035 H Total Protein Albumin Globulin Albumin/Globulin Ratio Urine Color Urine Appearance Urine pH Normal Ur Specific [place] Urine Protein Urine Glucose (UA) Urine Ketones Urine Occult Blood Urine Nitrate Urine Bilirubin Urine Urobilinogen Ur Leukocyte Esterase Urine RBC Urine WBC Ur Squamous Epith Cells Urine Bacteria Ur Culture Indicated? Vol Urine Centrifuged U Opiates 300ng/mL cut Ur Oxycodone Screen Urine Methadone Screen Ur Barbiturates Screen U Tricyclic Antidepress Ur Phencyclidine Scrn Ur Amphetamines Screen U Methamphetamines Scrn Ur MDMA Scrn (Ecstasy) U Benzodiazepines Scrn Urine Cocaine Screen U Marijuana (THC) Screen Urine Specific [place] Normal Ethyl Alcohol Ur Creatinine Normal Assessment & Plan Time-Based Coding :: [TOTAL MINUTES] spent with patient and on the chart (including review of chart, obtaining history, exam, reviewing outside data, placing orders, documenting exam and treatment plan, and counseling patient) on [DATE].
--- NOTE | 2024-11-22 19:29 | DI.NM.S_ITS ---
PROCEDURE: NM YANCI PERF SPECT R&S PHARM Rest and pharmacological stress myocardial perfusion SPECT with gated imaging and ejection fraction RADIOPHARMACEUTICAL: 27.5 mCi Tc-99m tetrafosmin IV at rest and 25.7 mCi Tc-99m tetrafosmin IV at peak effect of pharmacological stress. [id number] was performed. INDICATIONS: Troponin elevation TECHNIQUE: Radiopharmaceutical was injected at peak stress test, and also at rest. SPECT images were obtained. SPECT myocardial perfusion images were displayed in short axis, horizontal long axis, and vertical long axis views. Gated images were reviewed using [employer] software. COMPARISON: None. CARDIAC STRESS: A pharmacologic stress test was performed under the supervision of an attending staff, using an infusion of lexiscan 0.4mg IV X1. Hemodynamic data: There is normal blood pressure and heart rate response to pharmacologic stress. Symptoms: The patient denied anginal chest pain. Aminophylline: none EKG: No diagnostic changes of ischemia; rare PVCs present. FINDINGS: Raw data: There is good myocardial uptake of radiotracer. No significant motion artifacts. Oewl-wr-duxwh ratio is 0.25 (normal is less than 0.38 for tetrafosmin tracer). Left ventricle function: Gated images demonstrate normal left ventricular wall thickening. No segmental wall motion abnormalities. No transient ischemic dilation; TID is 1.0 (normal less than 1.3). Left ventricle resting end diastolic volume is 111 mL. Left ventricle stress ejection fraction is 69%; normal range is above 45%. Myocardial perfusion: There is a moderately intense fixed inferior wall defect that may be prior non-transmural infarction or artifact. No ischemia. No prone images obtained. IMPRESSION: Abnormal pharm nuclear stress test. 1) There is a moderately intense fixed inferior wall defect that may be prior non-transmural infarction or artifact. No ischemia. No prone images obtained. 2) Normal left ventricular size, wall motion, and systolic function (EF post stress 69%). 3) No diagnostic ST changes with lexiscan. 4) No angina during the study. 5) No prior nuclear stress test available for comparison. Dictated by: Celia Long MD on 11/24/2024 at 11:34 Approved by: Celia Long MD on 11/24/2024 at 11:36
[2024-11-22 20:00] LABS: Hemoglobin A1C% w Est Avg Glu 6.0 % (4.0-6.0)
[2024-11-22 20:14] LABS: Cholesterol 147 mg/dL (140-199); HDL Cholesterol 68 mg/dL (40-60); Triglycerides 114 mg/dL (35-150)
[2024-11-22 20:21] LABS: Troponin I 0.045 ng/mL (0.01-0.034)
[2024-11-23 03:00] VITALS: BP 127/78; PULSE 59; RESP 18; TEMP 36.9; O2SAT 93
[2024-11-23 07:00] VITALS: BP 137/70; PULSE 68; RESP 15; TEMP 36.8; O2SAT 98
[2024-11-23 10:13] LABS: Troponin I 0.013 ng/mL (0.01-0.034)
--- NOTE | 2024-11-23 10:20 | PT.IIE ---
Surgical History (Last Reviewed 08/26/24 @ 17:49 by Reji Mckeon DO) Hx of prostate biopsy Medical History (Last Reviewed 08/26/24 @ 17:49 by Reji Mckeon DO) Arthritis of carpometacarpal (CMC) joint of left thumb BPH w urinary obs/LUTS Diabetic retinopathy Elevated PSA Erectile dysfunction due to diabetes mellitus Essential hypertension Family history of colon cancer in mother Mixed hyperlipidemia Obesity (BMI 30.0-34.9) Primary osteoarthritis involving multiple joints Seizure disorder Stage 3b chronic kidney disease (CKD) Type 2 diabetes mellitus with stage 3b chronic kidney disease Physical Therapy Inpatient Evaluation/Re-Eval M1 PT/OT-IP Prior Functional Status Start: 11/23/24 12:28 Freq: NEEDED Status: Active Protocol: Document 11/23/24 10:20 AB (Rec: 11/23/24 12:38 [id number]) Medical Review Prior Functional Status Medical History Yes Reviewed Communication able to make needs known Mobility and Gait spouse in room and provided some info: pt stated that he was independent with all mobilities and ambulation without AD Social History Household Members spouse Living Arrangements House Number of Floors ( Two Floors Floors) Number of Stairs To pt stays on main level of the house Enter/Railing? has a ramp to enter Home Environment Standard Height Toilet,Walk in Shower,Ramp Home Equipment Front Wheel Walker,Shower Seat without Backrest,Hand Held Shower,Grab Bars In Shower M2 PT-IP Current Condition Start: 11/23/24 12:28 Freq: NEEDED Status: Active Protocol: Document 11/23/24 10:20 AB (Rec: 11/23/24 12:38 [id number]) Physical Therapy Current Condition Current Condition Evaluation Date 11/23/24 Treatment Diagnosis head injury; difficulty in walking Onset Date 11/22/24 M3 PT-IP Subjective Start: 11/23/24 12:28 Freq: NEEDED Status: Active Protocol: Document 11/23/24 10:20 AB (Rec: 11/23/24 12:38 [id number]) Subjective Physical Therapy Visit Type Type Initial Evaluation Visit Start Time 10:20 Visit Stop Time 10:45 Number of REGISTERED PHYSICAL THERAPIST Visits 0 Physical Therapy Visit Comments Patient Comments agreeable to do PT M4 PT-IP Mobility and Gait Start: 11/23/24 12:28 Freq: NEEDED Status: Active Protocol: Document 11/23/24 10:20 AB (Rec: 11/23/24 12:38 AB [id number]) PT-Bed Mobility Assessment Supine to Sit Supine to Sit Standby Assistance PT-Transfer Assessment Sit to and From Stand Sit to and from Standby Assistance,1 Person Assistance,Use of Upper Stand Extremities Equipment Transfer Assistive None,Gait Belt Device Orthotic/Prosthetic No Devices or Brace: Transfers Transfer Destination Chair Transfer Technique ambulated Transfer Ability Level of Assist Standby Assistance,1 Person Assistance,Use of Upper Extremities Comments Mobility Comments pt in bed and spouse in room. obtained PLOF and home set up. BP in supine: 1447/83. pt completed supine to sit SBA. able to sit on EOB SBA. sit to stand SBA and ambulated ~ 40 ft without AD SBA to CGA. c/o lightheadedness needed to turn and walk back to his room and sat on the chair. BP checked: 154/83. TX: 80 . informed spouse regarding pt's mobility and c/o lightheadedness. informed nurse regarding pt's lightheadedness. positioned pt on the chair. call light and table placed within reach. Gait Assessment Gait Gait Assistance Standby Assistance,Contact Guard Assist Required: Distance (Feet) 40 Able to Maintain Yes Weight Bearing Status During Gait Assistive Devices Assistive Device None,Gait Belt Orthotic/Prosthetic No Devices or Brace: Gait Deviations General Gait Pattern Antalgic,Decreased Stride Length,Decreased Feet Clearance,Step-to Gait Factors Limiting Gait Function Factors Limiting Decreased Activity Tolerance,Decreased Strength, Gait Function Difficulty Following Directions,Limited Range of Motion ,Poor Balance,Poor Safety Awareness PT-Balance Assessment Sitting Balance and Reactions Static Sitting Normal Balance Ability Dynamic Sitting Good Balance Ability Standing Balance and Reactions Static Standing Good Balance Ability Dynamic Standing Good Balance Ability Device Used without AD M5 PT-IP Objective Assessments Start: 11/23/24 12:28 Freq: NEEDED Status: Active Protocol: Document 11/23/24 10:20 AB (Rec: 11/23/24 12:38 AB [id number]) Orientation Orientation/Cognition Level of Alertness Alert Orientation Name,Place,Situation Language Function Hard of Hearing Ability Safety Awareness Decreased Safety Awareness Memory Description Short Term Impaired Gross Range of Motion Lower Extremity ROM Assessment Within Functional Limits Strength Lower Extremity Strength Assessment Within Functional Limits Muscle Tone Muscle Tone WNL Yes M6 PT-IP Treatment Start: 11/23/24 12:28 Freq: NEEDED Status: Active Protocol: Document 11/23/24 10:20 AB (Rec: 11/23/24 12:38 AB [id number]) Physical Therapy Treatment Education Education Provided Safety M7 PT-IP Assessment and Plan Start: 11/23/24 12:28 Freq: NEEDED Status: Active Protocol: Document 11/23/24 10:20 AB (Rec: 11/23/24 12:38 AB [id number]) PT Summary Assessment and Plan Potential Rehabilitation Fair Potential Status of Condition Evolving at Evaluation Summary Impairments Pain,ROM,Strength,Balance,Coordination,Sensation,Tone, Cognition,Bed Mobility,Transfers,Gait,Activity Tolerance Assessment Summary pt is a 73 y/o M who is admitted for head injury. pt does not remember falling or what happened. pt requiring SBA with mobility but was limited with ambulation due to c/o lightheadedness and was not able to tolerate ambulation. pt plans to go home and spouse will be able to assist pt at home. pt will require outpt PT. Goals Bed Mobility Goal Independent Transfer Goal Independent Gait Goal Independent Gait Distance 200 Days to Meet Goals 5 Frequency of Treatment Frequency Of Once a Day Treatment Treatment Plan Physical Therapy Bed Mobility Training,Transfer Training,Gait Training, Treatment Plan Therapeutic Exercise,Balance Retraining,Discharge Planning,Hot or Cold Pack,Neuromuscular Re-ed, Coordination Retraining Precautions Other Precautions falls Recommendations To Nursing Amount of Assist 1 Person Assist Needed Discharge Recommendations PT Discharge Home with Assistance,Outpatient PT Recommendations Transportation Needs Private Vehicle at Discharge - PT assist 1
[2024-11-23] MEDS: TOPIRAMATE 100 MG TABLET 200 MG PO ×2 (11:15→21:17)
[2024-11-23] MEDS: CHOLECALCIFEROL (VITAMIN D3) 1,000 UNIT TABLET 2000 UNIT PO (11:15)
[2024-11-23] MEDS: ATORVASTATIN 20 MG TABLET PO (11:15)
[2024-11-23] MEDS: LOSARTAN 50 MG TABLET 100 MG PO (11:15)
--- NOTE | 2024-11-23 12:00 | OT.IP.EVAL ---
Past Medical History (Last Reviewed 08/26/24 @ 17:49 by Reji Mckeon DO) Arthritis of carpometacarpal (CMC) joint of left thumb BPH w urinary obs/LUTS Diabetic retinopathy Elevated PSA Erectile dysfunction due to diabetes mellitus Essential hypertension Family history of colon cancer in mother Mixed hyperlipidemia Obesity (BMI 30.0-34.9) Primary osteoarthritis involving multiple joints Seizure disorder Stage 3b chronic kidney disease (CKD) Type 2 diabetes mellitus with stage 3b chronic kidney disease Surgical History (Last Reviewed 08/26/24 @ 17:49 by Reji Mckeon DO) Hx of prostate biopsy Occupational Therapy Inpatient Evaluation/Re-Eval M2 OT-IP Current Condition Start: 11/23/24 12:18 Freq: Status: Active Protocol: Document 11/23/24 12:18 [facility] (Rec: 11/23/24 12:37 [facility] Desktop) Occupational Therapy Current Condition Current Condition Evaluation Date 11/23/24 Treatment Diagnosis Left posterior frontal scalp hematoma, AMS Diagnosis Onset Date 11/22/24 M3 OT- IP Subjective and Pain Start: 11/23/24 12:18 Freq: Status: Active Protocol: Document 11/23/24 12:18 [facility] (Rec: 11/23/24 12:37 [facility] Desktop) OT- Subjective Occupational Therapy Visit Type Type Initial Evaluation Visit Start Time 11:20 Visit Stop Time 12:00 Occupational Therapy Visit Comments Patient Comments Pt agreed to get up for OT eval and do SLUMS. Patient/Caregiver TO go home. Goals OT Pain Assessment Pain When Pain Assessed At Rest Pain Present Pain Present Denied Pain M4 OT- IP ADL's Start: 11/23/24 12:18 Freq: Status: Active Protocol: Document 11/23/24 12:18 [facility] (Rec: 11/23/24 12:37 [facility] Desktop) OT [id number] Comments OT Self-Feeding Not at meal time. Comments OT ADL-Grooming General Evaluation Grooming Ability Independent OT ADL-Oral Care General Eval Oral Care Ability Independent Comments Oral Care Comments While standing at the sink. OT ADL-Dressing General Eval Lower Body Dressing Standby Assistance Ability Comments OT Dressing Comments Pt able to flakita/doff socks while seated. OT ADL-Toileting General Evaluation Toileting Ability Standby Assistance Comments OT Toileting Prior to OT arriving, pt and states pt was able to Comments get into the bathroom on his own for toileting needs. OT ADL-Bathing Comments OT Bathing Comments Not performed. M5 OT- IP IADL's Start: 11/23/24 12:18 Freq: Status: Active Protocol: Document 11/23/24 12:18 [facility] (Rec: 11/23/24 12:37 [facility] Desktop) OT-Instrumental Activities of Daily Living Home Safety Awareness Awareness of Need Good Awareness for Assistance at Home Ability to Problem Able to Problem Solve Solve Emergency Situations Medication Management Medication Good to have his supervise him initially. Management Comments Money Management Money Management Caregiver Provides Assistance Meal Preparation Meal Preparation Caregiver Provides Assist Game Technician Game Technician Caregiver Provides Assist Driving Driving Concerns Identified Regarding Safety M6 OT- IP Functional Cognition Start: 11/23/24 12:18 Freq: Status: Active Protocol: Document 11/23/24 12:18 [facility] (Rec: 11/23/24 12:37 [facility] Desktop) Cognitive Factors Limiting Selfcare Function Cognitive Ability Level of Alertness Alert Patient Orientation Name,Age,Birthday,Month,Date,Year,Day of Week,Place, Situation Attention Span Capable of Focused Attention,Capable of Sustained Ability Attention Ability to Follow Able to Follow One Step Commands Commands Memory Description Short Term Impaired Executive Function Unable to Remember Details Ability Cognitive Tests SLUMS Pt scored 24/30 which implies mild cognitive disorder. Pt admits that his memory is not good to begin with. Pt able to name 13 animals in one minute, able to recall 2/5 objects after time passed, and able to answer 3/4 questions right after paragraph read. Cognitive Comments Cognitive Assessment Pt needing increased time to perform the SLUMS. Pt's Comments surprised that pt is not as well with numbers as he usually does. Pt states usually has a very poor memory. Pt scored 217 for [place] Making Part B which implies severe deficits for visual attention, speed of processing, task switching, executive functioning, and mental flexibility. Strongly suggested pt not drive at this time. OT- Vision and Hearing OT- Hearing Assessment OT- Hearing Hearing Impaired Assessment OT- Vision Assessment Visual Acuity Glasses For Reading Visual Attentiveness WFL Occular Pursuits WFL Visual Convergence WFL Visual Perez WFL M7 OT- IP Mobility and Balance Start: 11/23/24 12:18 Freq: Status: Active Protocol: Document 11/23/24 12:18 [facility] (Rec: 11/23/24 12:37 [facility] Desktop) OT-Transfer Assessment Sit to and From Stand Sit to and from Standby Assistance Stand Transfers Transfer Ability Standby Assistance,Contact Guard Assistance Technique Transfer Destination Chair Transfer Technique Stand Step Pivot Devices Transfer Assistive None Devices Comments Mobility Comments Pt SBA to stand and from occasional CGA to SBA for walking around in the room. OT- Balance Assessment Sitting Balance and Reactions Static Sitting Normal Balance Ability Dynamic Sitting Normal Balance Ability Standing Balance and Reactions Static Standing Good Balance Ability Dynamic Standing Fair Balance Ability M8 OT- IP Objective Assessments Start: 11/23/24 12:18 Freq: Status: Active Protocol: Document 11/23/24 12:18 [facility] (Rec: 11/23/24 12:37 [facility] Desktop) OT Gross Range of Motion Upper Extremity Range of Motion Assessment Bilaterally Impaired ROM Impairments RUE 0-90, LUE 0-110 OT Strength Upper Extremity Strength Assessment Right Impaired Shoulder 3- Elbow 4 Forearm 4 Wrist 4 Hand 4 Comments Strength Comments LUE 5/5 OT- Coordination Assessment Upper Extremity Finger to Nose Test Within Functional Limits Comments Coordination Slight increased time for both hand for finger to nose. Comments OT Sensation Assessment Comments Summary Comments Intact for light touch. M9 OT- IP Assessment and Plan Start: 11/23/24 12:18 Freq: Status: Active Protocol: Document 11/23/24 12:18 [facility] (Rec: 11/23/24 12:37 [facility] Desktop) OT Summary Assessment and Plan Potential Rehabilitation Good Potential Analytic Complexity Moderate at Evaluation Summary OT Impairments Range of Motion,Strength,Balance,Functional Cognition, Functional Mobility,Dressing,Toileting,Bathing,Toilet Transfers,Shower Transfers,Activity Tolerance Progress Towards Progressing Toward Goals Goals Assessment Summary Pt MOD complexity and here due to presumed fall and left posterior frontal scalp hematoma. Pt scored 24/30 on the SLUMS which implies mild neurocognitive disorder . Pt admits to having a poor memory, therefore possibly that pt may be close to his cognitive baseline. Pt a little slow to process and problem solve for SLUMS and [place] Making Part B. Pt is able to get around in the room with occasional CGA to close SBA. Pt may benefit from device for uneven terrain. Pt to go home with his to assist when medically stable. Pt may benefit from outpt PT. Goals Self-Feeding Goal Independent Grooming Goal Independent Dressing Goal Independent Toileting Goal Independent Bathing Goal Independent Toilet Transfer Goal Independent Shower Transfer Goal Independent OT-Other Goals Pt to be able to implement memory strategies daily for ADL and IADL needs. Days to Meet Goals 5 Frequency of Treatment Other frequency 5x/week Treatment Plan OT Treatment Plan ADL Training,Functional Cognition Training,IADL Training,Patient/Family Education,Discharge Planning Discharge Recommendations OT Discharge Home with Assistance,Outpatient PT Recommendations Transportation Needs Private Vehicle at Discharge
[2024-11-23 12:53] VITALS: BP 148/78; PULSE 76; RESP 15; TEMP 36.6; O2SAT 95
[2024-11-23] MEDS: INSULIN LISPRO 100 UNIT/ML 3ML VIAL SUBCUT ×3 (12:53→16:46)
[2024-11-23] MEDS: INSULIN GLARGINE 100 UNIT/ML 3ML PEN 30 UNIT SUBCUT (12:54)
--- NOTE | 2024-11-23 13:31 | P.PN_ITS ---
Subjective Subjective Date Patient Seen: 11/23/24 Interval history: Chief complaint: Anterograde and retrograde amnesia after concussion in a patient with a history of seizure disorder History of present illness: 11/22: 73-year-old male who has been having difficulties with memory according to the for the last couple of days drove his to the clinic at [facility]. When the came back to the car a dog was locked in the car. Apparently Patient had walked over to the emergency room. Patient was was noted by ER staff to be confused, to have blood in his face and abrasion under his nose and hematoma on his left zoroastrian. arrives shortly after 2:00 p.m. and provide some collateral history. In the emergency room he was evaluated findings there include: CT head: Left posterior frontal scalp hematoma without skull fracture no acute intracranial pathology CT cervical spine shows no fracture subluxation or dislocation Hemogram and comprehensive metabolic unremarkable Initial troponin unmeasurable 3 hour troponin 0.035 at 3:00 a.m. peaked to 0.45 and de-escalated 0.013 (total CK 221) EKG sinus rhythm no acute ST segments or T-wave changes Prolactin 6.3 Hospital course: 11/23: No further events recorded overnight alert conversant having difficulty with memory Review of systems: Limited due to patient's poor memory Does not recall having: chest pain palpitations shortness for breath Nausea vomiting diarrhea Abdominal pain Urinary Paresthesia or paresis Physical exam: General pleasant but somewhat confused difficulty finding answers to questions but articulate HEENT abrasion on face under nose and a hematoma of the left scalp Extraocular motions intact Neck normal range of motion no paresthesia in upper extremities with movement No carotid bruit Heart rate and rhythm regular no murmurs Lungs clear Abdomen benign Extremities no edema Neurologic exam: Alert and oriented x3 NIH Cranial nerves [id number] intact 5/5 strength x4 Gait is Mental status recalls 1 objects in 3 minutes Can not do serial 7 Can do arithmetic Can spell the word world but not backwards Assessment and plan: Indirect evidence of blunt head trauma unknown causality from probable fall as evidenced by abrasion and scalp hematoma the postconcussive symptoms anterograde and retrograde amnesia * Suspected breakthrough seizures * seizure precautions * Placed in observation * Neurochecks q.2 hours * Repeat CT scan if there is any neurologic changes Slight elevation of troponin .03 with rapid deescalation * Favor musculoskeletal origin over cardiac * electronic integrated systems mechanic * Serial troponin showing rapid deescalation * Stress test in the morning Seizure disorder suspect breakthrough seizures * Awaiting reply from patient's Neurology * May need to transfer to another facility for EEG DVT prophylaxis: * SCDs only due to hematoma Code status: * Full code blue Disposition: * Observation on telemetry Time based billing: * 35 minutes were involved in evaluation of this patient including [id number] evaluation physical examination review of objective laboratory and imaging including direct view of images discussion with emergency provider and treatment team Exam Vital Signs (past 8 hours): - 11/23/24 07:00 11/23/24 12:53 Temperature 98.2 F 97.8 F Pulse Rate 68 76 Respiratory Rate 15 15 Blood Pressure 137/70 148/78 H Pulse Oximetry 98 95 Oxygen Flow Rate 0 0 Oxygen Delivery Method Room Air Oxygen Flow Rate 0 Objective Labs 11/22/24 13:30 11/22/24 13:30 Labs: Laboratory Results - last 24 hr 11/22/24 11/22/24 11/22/24 13:26 13:30 14:46 WBC 6.3 RBC 5.51 Hgb 16.4 Hct 48.5 MCV 88.1 MCH 29.7 MCHC 33.7 RDW 13.9 Plt Count 180 Neut % (Auto) 71.1 Lymph % (Auto) 19.0 L [place] % (Auto) 7.3 Eos % (Auto) 1.7 L Baso % (Auto) 0.9 Neut # (Auto) 4500 Lymph # (Auto) 1200 [place] # (Auto) 500 Eos # (Auto) 100 Baso # (Auto) 100 D-Dimer 332 Sodium 139 Potassium 4.3 Chloride 107 Carbon Dioxide 21 L BUN 25 H Creatinine 1.35 H Estimated GFR 55 L BUN/Creatinine Ratio 18.5 Glucose 176 H POC Whole Bld Glucose 181 H Hemoglobin A1c 6.0 Calcium 9.2 Total Bilirubin 0.7 AST 30 ALT 30 Alkaline Phosphatase 97 Troponin I < 0.012 Total Protein 7.4 Albumin 4.6 Globulin 2.8 Albumin/Globulin Ratio 1.6 Triglycerides Cholesterol LDL Cholesterol, Calc HDL Cholesterol Urine Color Yellow Urine Appearance Clear Urine pH 6.5 Ur Specific Kamrar 1.015 Urine Protein Negative Urine Glucose (UA) 3+ H Urine Ketones Negative Urine Occult Blood Negative Urine Nitrate Negative Urine Bilirubin Negative Urine Urobilinogen 1.0 Ur Leukocyte Esterase Negative Urine RBC None seen Urine WBC 0-1/hpf Ur Squamous Epith Cells None seen Urine Bacteria Occasional (0-1) Ur Culture Indicated? Cult not indicated Vol Urine Centrifuged 10ml (spun) U Opiates 300ng/mL cut Negative Ur Oxycodone Screen Negative Urine Methadone Screen Negative Ur Barbiturates Screen Negative U Tricyclic Antidepress Negative Ur Phencyclidine Scrn Negative Ur Amphetamines Screen Negative U Methamphetamines Scrn Negative Ur MDMA Scrn (Ecstasy) Negative U Benzodiazepines Scrn Negative Urine Cocaine Screen Negative U Marijuana (THC) Screen Negative Urine Specific Kamrar Ethyl Alcohol < 10 Ur Creatinine 11/22/24 11/22/24 11/22/24 14:46 16:46 19:51 WBC RBC Hgb Hct MCV MCH MCHC RDW Plt Count Neut % (Auto) Lymph % (Auto) [place] % (Auto) Eos % (Auto) Baso % (Auto) Neut # (Auto) Lymph # (Auto) [place] # (Auto) Eos # (Auto) Baso # (Auto) D-Dimer Sodium Potassium Chloride Carbon Dioxide BUN Creatinine Estimated GFR BUN/Creatinine Ratio Glucose POC Whole Bld Glucose Hemoglobin A1c Calcium Total Bilirubin AST ALT Alkaline Phosphatase Troponin I 0.035 H 0.045 H Total Protein Albumin Globulin Albumin/Globulin Ratio Triglycerides 114 Cholesterol 147 LDL Cholesterol, Calc 56 HDL Cholesterol 68 H Urine Color Urine Appearance Urine pH Normal Ur Specific Kamrar Urine Protein Urine Glucose (UA) Urine Ketones Urine Occult Blood Urine Nitrate Urine Bilirubin Urine Urobilinogen Ur Leukocyte Esterase Urine RBC Urine WBC Ur Squamous Epith Cells Urine Bacteria Ur Culture Indicated? Vol Urine Centrifuged U Opiates 300ng/mL cut Ur Oxycodone Screen Urine Methadone Screen Ur Barbiturates Screen U Tricyclic Antidepress Ur Phencyclidine Scrn Ur Amphetamines Screen U Methamphetamines Scrn Ur MDMA Scrn (Ecstasy) U Benzodiazepines Scrn Urine Cocaine Screen U Marijuana (THC) Screen Urine Specific Kamrar Normal Ethyl Alcohol Ur Creatinine Normal 11/22/24 11/23/24 11/23/24 21:31 07:28 09:40 WBC RBC Hgb Hct MCV MCH MCHC RDW Plt Count Neut % (Auto) Lymph % (Auto) [place] % (Auto) Eos % (Auto) Baso % (Auto) Neut # (Auto) Lymph # (Auto) [place] # (Auto) Eos # (Auto) Baso # (Auto) D-Dimer Sodium Potassium Chloride Carbon Dioxide BUN Creatinine Estimated GFR BUN/Creatinine Ratio Glucose POC Whole Bld Glucose 124 H 114 H Hemoglobin A1c Calcium Total Bilirubin AST ALT Alkaline Phosphatase Troponin I 0.013 Total Protein Albumin Globulin Albumin/Globulin Ratio Triglycerides Cholesterol LDL Cholesterol, Calc HDL Cholesterol Urine Color Urine Appearance Urine pH Ur Specific Kamrar Urine Protein Urine Glucose (UA) Urine Ketones Urine Occult Blood Urine Nitrate Urine Bilirubin Urine Urobilinogen Ur Leukocyte Esterase Urine RBC Urine WBC Ur Squamous Epith Cells Urine Bacteria Ur Culture Indicated? Vol Urine Centrifuged U Opiates 300ng/mL cut Ur Oxycodone Screen Urine Methadone Screen Ur Barbiturates Screen U Tricyclic Antidepress Ur Phencyclidine Scrn Ur Amphetamines Screen U Methamphetamines Scrn Ur MDMA Scrn (Ecstasy) U Benzodiazepines Scrn Urine Cocaine Screen U Marijuana (THC) Screen Urine Specific Kamrar Ethyl Alcohol Ur Creatinine 11/23/24 12:47 WBC RBC Hgb Hct MCV MCH MCHC RDW Plt Count Neut % (Auto) Lymph % (Auto) [place] % (Auto) Eos % (Auto) Baso % (Auto) Neut # (Auto) Lymph # (Auto) [place] # (Auto) Eos # (Auto) Baso # (Auto) D-Dimer Sodium Potassium Chloride Carbon Dioxide BUN Creatinine Estimated GFR BUN/Creatinine Ratio Glucose POC Whole Bld Glucose 247 H D Hemoglobin A1c Calcium Total Bilirubin AST ALT Alkaline Phosphatase Troponin I Total Protein Albumin Globulin Albumin/Globulin Ratio Triglycerides Cholesterol LDL Cholesterol, Calc HDL Cholesterol Urine Color Urine Appearance Urine pH Ur Specific Kamrar Urine Protein Urine Glucose (UA) Urine Ketones Urine Occult Blood Urine Nitrate Urine Bilirubin Urine Urobilinogen Ur Leukocyte Esterase Urine RBC Urine WBC Ur Squamous Epith Cells Urine Bacteria Ur Culture Indicated? Vol Urine Centrifuged U Opiates 300ng/mL cut Ur Oxycodone Screen Urine Methadone Screen Ur Barbiturates Screen U Tricyclic Antidepress Ur Phencyclidine Scrn Ur Amphetamines Screen U Methamphetamines Scrn Ur MDMA Scrn (Ecstasy) U Benzodiazepines Scrn Urine Cocaine Screen U Marijuana (THC) Screen Urine Specific Kamrar Ethyl Alcohol Ur Creatinine PFSH Medical History Arthritis of carpometacarpal (CMC) joint of left thumb Family history of colon cancer in mother Primary osteoarthritis involving multiple joints Obesity (BMI 30.0-34.9) Diabetic retinopathy Stage 3b chronic kidney disease (CKD) Mixed hyperlipidemia Essential hypertension Type 2 diabetes mellitus with stage 3b chronic kidney disease Erectile dysfunction due to diabetes mellitus BPH w urinary obs/LUTS Elevated PSA Seizure disorder Surgical History Hx of prostate biopsy Family History Father Diabetes mellitus Grandfather Diabetes mellitus Social History marital status: details: 1 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
--- NOTE | 2024-11-23 13:34 | CM.DANOTE ---
Initial DCP Assessment Note Visit Reviewed EMR and team rounds for pt's medical status and updates. Met with pt at bedside to introduce self and role. Pt was found to be sitting upright in the recliner, alert/oriented, yet still not remembering how he got to the hospital. Pt lives independently with his spouse and dog [place]. His spouse will plan to transport him home once he's medically cleared for home d/c, likely later today if his stress test goes ok and is negative. He denies any CM d/c needs or resources at this time. Payor: [facility] PCP: Dr. Umana Pt is a 73 year-old M who presnted to the ED, initially he thought he had been at the [id number], and he had AMS, and appeared with blood on his face. He was actually found out in the parking lot by staff from the primary clinic. He did not remember how he arrived at the hospital, or having fell. As it turned out, his drove here with him in order to go to her own PCP appt, and had left him in the car with the dog. When she came back out to the car, he was gone. She found him in the ED, and was able to provide this background information to the ED staff. He also has a hx of seizure disorder, which he takes medication for. Pt was evaluated in the ED, CT head/brain was negative, however he did have a new L-sided forehead hematoma and laceration from the unwitnessed fall in the parking lot, no fractures were seen on the CT imaging. Plan was made to admit him for monitoring/observation, and have a planned stress test (today). Stress test is pending. DCP will continue to monitor for any further d/c resource or assistance needs. Discharge Planning/Care Management CM Discharge Assessment Start: 11/22/24 20:09 Freq: Status: Active Protocol: Document 11/23/24 13:32 DPL (Rec: 11/23/24 13:34 DPL [id number]) Discharge Planning Assessment Assigned Discharge JUAN Koch General Partner Insurance [facility] Advance Directives? No History Provided By Patient,Medical Record Has Patient been No admitted in last 30 days? Prior Living House Arrangements Household Members spouse Type of Relies on Others transporation used prior to admit Independent with ADL Yes 's Is patient alert and Yes oriented? Comment N/A Caregiver for No Another Comment No AD at baseline. Comment No identified home d/c needs at this time. Barriers to No Discharge Discharge Plan Home Referrals Initiated None needed Whiteboard Updated Yes in Patient Room with name and ext. # of Health Technician Hearing Review Status In Process Please Provide Date 11/23/24 Initial DC Assessment Was Performed
--- NOTE | 2024-11-23 13:54 | DIET.INSP ---
Nutrition/Diabetes Insulin Pump Consult Assessment: 73 y/o M familiar to this RD from OP diabetes education. Admitted for closed head injury. PMH of seizure disorder. Omnipod stopped by night RN last night per pt report due to a miscommunication as to whether pt could wear pump in IP setting. Patient plans to restart OP5 tomorrow once brings pump. Current plan is Lantus x 30u (given at 1p today) and 10u prandial with correction. May require 15-20u prandial based on history of insulin needs. If starting OP5 prior to 24 hours after Lantus dose, recommend activity mode to reduce insulin from pump until 24 hours from last Lantus dose. Type of pump: Omnipod5 Blood Sugar Information TIR: 5% very high 23% high 72% in range 0% low or very low 158mg/dl average 47mg/dl std dev 29.9% variation Interventions: Reviewed blood sugar trends Discussed calibration of CGM prn from fingersticks Reviewed keeping pump on during admission Inpatient RD will check on CCD appropriate diet Discussed plan to use activity mode prn Monitoring and Evaluation: OP f/u and inpatient RD will check on his pump tomorrow.
[2024-11-23 14:10] LABS: Creatine Kinase 221 U/L (55-170)
--- NOTE | 2024-11-23 15:53 | ST.IPIE ---
Visit Care Team Role Provider Type Gene Umana MD Primary Care Provider Physician Specialty: Internal Medicine Address: [address] [place] [address] Email: [email or web address] DO Emergency Provider Physician Referring Provider Specialty: Emergency Medicine Address: [address] [place] [address], [facility] Phone: Fax: Email: [email or web address] Segun Pena MD Admit Provider Physician Attending Provider Specialty: Hospitalist Address: [address] [place] [address], [facility] Fax: Email: [email or web address] Past Medical History (Last Reviewed 08/26/24 @ 17:49 by Reji Mckeon DO) Arthritis of carpometacarpal (CMC) joint of left thumb (Medical) BPH w urinary obs/LUTS (Medical) Diabetic retinopathy (Medical) Elevated PSA (Medical) Erectile dysfunction due to diabetes mellitus (Medical) Essential hypertension (Medical) Family history of colon cancer in mother (Medical) Mixed hyperlipidemia (Medical) Obesity (BMI 30.0-34.9) (Medical) Primary osteoarthritis involving multiple joints (Medical) Seizure disorder (Medical) Stage 3b chronic kidney disease (CKD) (Medical) Type 2 diabetes mellitus with stage 3b chronic kidney disease (Medical) ST IP Initial Evaluation Report VEST MAKER Adult Cognitive Linguistic Eval Start: 11/23/24 15:36 Freq: Status: Active Protocol: Document 11/23/24 15:36 MM (Rec: 11/23/24 15:52 MM Desktop) Adult Cognitive Linguistic Evaluation Session Time Visit Start Time 15:15 Visit Stop Time 15:30 Total Visit Minutes 15 Referral Referring Provider Segun Pena MD Reason for Referral closed head injury Setting Assessment Location Acute Care Visit Type Note Type Initial evaluation Next Note Type Next Note Type Treatment Note Patient Information Patient History Per chart review: Chief complaint: Anterograde and retrograde amnesia after concussion in a patient with a history of seizure disorder History of present illness: 11/22: 73-year-old male who has been having difficulties with memory according to the for the last couple of days drove his to the clinic at [facility]. When the came back to the car a dog was locked in the car in the patient had walked over to the emergency room. Patient was was noted by ER staff to be confused, to have blood in his face and abrasion under his nose and hematoma on his left amish . PMH includes T2DM, HTN, HLD, seizure disorder. CT head revealed No acute intracranial pathology. Left posterior frontal parietal scalp hematoma without acute skull fracture. CXR revealed Bilateral basilar atelectasis, no definite focal infiltrate. WBC WNL. Breathing comfortably on room air. Subjective Patient Report Pt reclined in bed upon ST arrival. Awake, alert, and oriented to self, date, place, and situation. Chart reviewed, RN consulted. RN denied concerns re: speech or swallowing, possible difficulty with memory. Pt denied dysphagia; no concerns with coughing/choking on liquids or globus sensation with solids/pills. Pt reported tolerating baseline diet (IDDSI 0 thin liquids and IDDSI 7 regular solids). Pt endorsed mild difficulty with memory recall. Informal Assessment Receptive Language Yes Normal Expressive Language Yes Normal Pragmatic Language Yes Normal Speech Normal Yes Cognition Normal No Cognitive Impairment Short-term memory (s) Formal Assessment Results Informal measures, the Acute Concussion Evaluation (MIGUEL ANGEL ), and a portion of the Cognitive Linguistic Quick Test (CLQT) were utilized to assess the pt's cognitive- linguistic skills in the setting of known head trauma. The MIGUEL ANGEL is an assessment developed by the CDC intended to provide an evidence-based clinical protocol to conduct an initial evaluation and diagnosis of patients with known or suspected mTBI. Of the 22 concussion symptoms, the pt endorsed 6/22 (2/10 physical - balance problems, dizziness; 1/4 cognitive - difficulty remembering; 2/4 emotional - sadness, more emotional; and 1/4 sleep - sleeping less than usual). Given the pt 's endorsement of the aforementioned concussion symptoms, it can be concluded that the pt did sustain a concussion in the setting of known head trauma. The CLQT Story Retelling subtest was utilized to assess the pt's short term memory recall. The pt scored 4 which is ONL for the pt's age criterion score of 5. Therefore , it can be concluded the pt exhibits a mild memory recall deficit. Informally, the pt's speech as well as receptive and expressive language skills appeared WFL. Findings/Results Language Function Within functional limits Cognitive Function Mildly impaired Findings The pt exhibited a mild memory recall deficit 2/2 concussion in the setting of known head trauma. Prognosis Prognosis Good Based on Family support,Time since onset Plan of Care Speech-Language Yes Treatment Frequency x1 f/u Patient/Caregiver Described results of evaluation,Patient expressed Education understanding of evaluation,Patient expressed agreement with goals and treatment plans,Patient requires further education/training Short Term Goals STG1: The pt will demonstrate recall and understanding of taught memory strategies via teach-back with 100% accuracy to improve memory recall of functional information and for utilization in iADLs. STG2: The pt will recall concussion education (symptoms , management) following initial education to increase awareness of deficits and improve safety and QOL. Discharge Home,Outpatient therapy Recommendations
[2024-11-23] MEDS: INSULIN LISPRO 100 UNIT/ML 3ML VIAL 10 UNIT SUBCUT (16:47)
[2024-11-23 16:54] VITALS: BP 122/68; PULSE 95; RESP 15; TEMP 36.8; O2SAT 95
[2024-11-23 20:00] VITALS: BP 146/72; PULSE 71; RESP 18; TEMP 36.6; O2SAT 98
[2024-11-23] MEDS: SODIUM CHLORIDE 0.9% FLUSH 10 ML IV (21:17)
[2024-11-23] MEDS: TAMSULOSIN 0.4 MG CAPSULE PO (21:17)
[2024-11-24] VITALS: BP 128/47; PULSE 82; RESP 17; TEMP 37; O2SAT 93
[2024-11-24 04:00] VITALS: BP 118/60; PULSE 67; RESP 16; TEMP 36.6; O2SAT 92
--- NOTE | 2024-11-24 07:29 | P.PN_ITS ---
Subjective Subjective Interval history: Summary: Anterograde and retrograde amnesia after concussion in a patient with a history of seizure disorder History of present illness: 11/22: 73-year-old male who has been having difficulties with memory according to the for the last couple of days drove his to the clinic at [facility]. When the came back to the car a dog was locked in the car. Apparently Patient had walked over to the emergency room. Patient was was noted by ER staff to be confused, to have blood in his face and abrasion under his nose and hematoma on his left jehovah's witness. arrives shortly after 2:00 p.m. and provide some collateral history. In the emergency room he was evaluated findings there include: CT head: Left posterior frontal scalp hematoma without skull fracture no acute intracranial pathology CT cervical spine shows no fracture subluxation or dislocation Hemogram and comprehensive metabolic unremarkable Initial troponin unmeasurable 3 hour troponin 0.035 at 3:00 a.m. peaked to 0.45 and de-escalated 0.013 (total CK 221) EKG sinus rhythm no acute ST segments or T-wave changes Prolactin 6.3 Hospital course: 11/23: No further events recorded overnight alert conversant having difficulty with memory S: O: NAD, alert and oriented. Fluent speech. Lungs are clear, normal rate and effort. Heart is regular, no murmur gallop or rub. Abdomen is soft, non distended. Extremities are free of edema. A/P: 1. Indirect evidence of blunt head trauma unknown causality from probable fall as evidenced by abrasion and scalp hematoma the postconcussive symptoms anterograde and retrograde amnesia * Suspected breakthrough seizures * seizure precautions * Placed in observation * Neurochecks q.2 hours * Repeat CT scan if there is any neurologic changes 2. Slight elevation of troponin .03 with rapid deescalation * Favor musculoskeletal origin over cardiac * monitoring specialist * Serial troponin showing rapid deescalation * Stress test in the morning 3. Seizure disorder suspect breakthrough seizures * Awaiting reply from patient's Neurology * May need to transfer to another facility for EEG Exam Vital Signs (past 8 hours): - 11/24/24 00:00 11/24/24 04:00 Temperature 98.6 F 97.8 F Pulse Rate 82 67 Respiratory Rate 17 16 Blood Pressure 128/47 L 118/60 Pulse Oximetry 93 92 Oxygen Flow Rate 0 0 Oxygen Delivery Method Room Air Oxygen Flow Rate 0 Objective Labs 11/22/24 13:30 11/22/24 13:30 Labs: Laboratory Results - last 24 hr 11/22/24 11/23/24 11/23/24 13:30 07:28 09:40 POC Whole Bld Glucose 114 H Total Creatine Kinase 221 H Troponin I 0.013 Prolactin 11/23/24 11/23/24 11/23/24 10:57 12:47 16:30 POC Whole Bld Glucose 247 H D 196 H Total Creatine Kinase Troponin I Prolactin 6.3 11/23/24 19:47 POC Whole Bld Glucose 170 H Total Creatine Kinase Troponin I Prolactin PFSH Medical History Arthritis of carpometacarpal (CMC) joint of left thumb Family history of colon cancer in mother Primary osteoarthritis involving multiple joints Obesity (BMI 30.0-34.9) Diabetic retinopathy Stage 3b chronic kidney disease (CKD) Mixed hyperlipidemia Essential hypertension Type 2 diabetes mellitus with stage 3b chronic kidney disease Erectile dysfunction due to diabetes mellitus BPH w urinary obs/LUTS Elevated PSA Seizure disorder Surgical History Hx of prostate biopsy Family History Father Diabetes mellitus Grandfather Diabetes mellitus Social History marital status: details: 1 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
[2024-11-24] MEDS: LOSARTAN 50 MG TABLET 100 MG PO (08:51)
[2024-11-24] MEDS: CHOLECALCIFEROL (VITAMIN D3) 1,000 UNIT TABLET 2000 UNIT PO (08:51)
[2024-11-24] MEDS: ATORVASTATIN 20 MG TABLET PO (08:51)
[2024-11-24] MEDS: SODIUM CHLORIDE 0.9% FLUSH 10 ML IV (08:51)
[2024-11-24] MEDS: TOPIRAMATE 100 MG TABLET 200 MG PO (08:51)
--- NOTE | 2024-11-24 10:17 | ST.IPTN ---
Visit Care Team Role Provider Type Gene Umana MD Primary Care Provider Physician Address: [address] [place] [address], [id number] Jl Ochoa DO Emergency Provider Physician Referring Provider Address: [address] [place] [address], [address] Phone: Fax: Segun Pena MD Admit Provider Physician Attending Provider Address: [address] [place] [address], [address] Fax: PRINTING GREY CLOTH TENDER Treatment Note PRINTING GREY CLOTH TENDER Treatment Note Start: 11/23/24 15:36 Freq: Status: Active Protocol: Document 11/24/24 09:54 SS (Rec: 11/24/24 10:17 SS Desktop) Speech Pathology Treatment Note Session Time Visit Start Time 09:25 Visit Stop Time 09:50 Total Visit Minutes 25 Visit Information Visit Number 2 Setting Treatment Setting Acute Care Visit Type Note Type Treatment Note General Information Patient History Per chart review: Chief complaint: Anterograde and retrograde amnesia after concussion in a patient with a history of seizure disorder History of present illness: 11/22: 73-year-old male who has been having difficulties with memory according to the for the last couple of days drove his to the clinic at [facility]. When the came back to the car a dog was locked in the car in the patient had walked over to the emergency room. Patient was was noted by ER staff to be confused, to have blood in his face and abrasion under his nose and hematoma on his left jainism . PMH includes T2DM, HTN, HLD, seizure disorder. CT head revealed No acute intracranial pathology. Left posterior frontal parietal scalp hematoma without acute skull fracture. CXR revealed Bilateral basilar atelectasis, no definite focal infiltrate. WBC WNL. Breathing comfortably on room air. Subjective Identification Type Name Observations/Patient Pt sitting upright in armchair upon PRINTING GREY CLOTH TENDER arrival. He was Presentation alert and oriented and agreeable to session. Objective Short Term Goals STG1: The pt will demonstrate recall and understanding of taught memory strategies via teach-back with 100% accuracy to improve memory recall of functional information and for utilization in iADLs. 11/24/24: Goal met. STG2: The pt will recall concussion education (symptoms , management) following initial education to increase awareness of deficits and improve safety and QOL. 11/24/24: Goal met. Treatment Activities PRINTING GREY CLOTH TENDER facilitated discussion re: pt symptoms and provided education re: mental fatigue following brain injury. Discussion with pt re: strategies for improving mental fatigue. Additionally provided education re: external memory strategies and implemented selected strategy of notetaking. PRINTING GREY CLOTH TENDER assisted pt in improving phone accessibility to increase effective use in daily life. Assessment Patient Response to Good Treatment Rehab Potential Good Impairments Cognitive communication Identified Progress Towards Good Progress Goals Assessment of Improving Overall Progress Assessment of PRINTING GREY CLOTH TENDER facilitated discussion re: residual symptoms pt has Improvement been experiencing. Pt reported mental fatigue as well as difficulty with short-term memory. Provided education re: mental fatigue following brain injury. Explained that mental fatigue can be most severe immediately after injury and that it takes greater energy and mental effort to complete tasks that used to be less challenging at baseline. Recommended pt utilize the following strategies at home to reduce mental fatigue: building in regular rest breaks during the day, creating a to-do list and prioritizing tasks, completing one tasks at a time and avoiding multitasking, and avoiding overexertion and overscheduling. Pt expressed understanding and demonstrated good teach-back of information. Additionally, PRINTING GREY CLOTH TENDER provided education re: external memory strategies to increase retrospective and prospective short-term memory, including notetaking, alarms and timers, checklists, and pill organizers. Pt expressed he used to take notes on Notes alexandr on his phone, but has had difficulty doing so since admission. PRINTING GREY CLOTH TENDER assisted pt in increasing accessibility of alexandr by moving it to the home page. Following initial instruction in creating new notes and removing unused notes, pt was able to do so in order to improve recall and to access information quickly and efficiently. Handouts provided for increased recall of information. Recommend spouse assist pt with IADLs following discharge home as needed, which pt expressed understanding of. If symptoms persist, recommend pt request referral from PCP for outpatient PRINTING GREY CLOTH TENDER services. Discussed POC and recommendations with RN and MD, who expressed understanding.
--- NOTE | 2024-11-24 11:03 | OT.IP.TRT ---
Occupational Therapy Treatment Note M2 OT-IP Current Condition Start: 11/23/24 12:18 Freq: Status: Active Protocol: Document 11/23/24 12:18 [facility] (Rec: 11/23/24 12:37 [facility] Desktop) Occupational Therapy Current Condition Current Condition Evaluation Date 11/23/24 Treatment Diagnosis Left posterior frontal scalp hematoma, AMS Diagnosis Onset Date 11/22/24 M3 OT- IP Subjective and Pain Start: 11/23/24 12:18 Freq: Status: Active Protocol: Document 11/24/24 11:26 [facility] (Rec: 11/24/24 11:36 [facility] Desktop) OT- Subjective Occupational Therapy Visit Type Type Treatment Note Visit Start Time 10:40 Visit Stop Time 11:03 Occupational Therapy Visit Comments Patient Comments Pt agreed to get up. Pt working on trying to get his Dexacom insulin pump to work with his phone when OT came in. Notified nursing and dietary was called to come and work with pt. Patient/Caregiver To go home. Goals OT Pain Assessment Pain When Pain Assessed At Rest Pain Present Pain Present Denied Pain M4 OT- IP ADL's Start: 11/23/24 12:18 Freq: Status: Active Protocol: Document 11/24/24 11:26 [facility] (Rec: 11/24/24 11:36 [facility] Desktop) OT ADL-Grooming General Evaluation Grooming Ability Independent OT ADL-Oral Care General Eval Oral Care Ability Independent Comments Oral Care Comments VC to keep the FWW in front of him. M5 OT- IP IADL's Start: 11/23/24 12:18 Freq: Status: Active Protocol: Document 11/23/24 12:18 [facility] (Rec: 11/23/24 12:37 [facility] Desktop) OT-Instrumental Activities of Daily Living Home Safety Awareness Awareness of Need Good Awareness for Assistance at Home Ability to Problem Able to Problem Solve Solve Emergency Situations Medication Management Medication Good to have his supervise him initially. Management Comments Money Management Money Management Caregiver Provides Assistance Meal Preparation Meal Preparation Caregiver Provides Assist Medical Case Worker Medical Case Worker Caregiver Provides Assist Driving Driving Concerns Identified Regarding Safety M6 OT- IP Functional Cognition Start: 11/23/24 12:18 Freq: Status: Active Protocol: Document 11/24/24 11:26 [facility] (Rec: 11/24/24 11:36 [facility] Desktop) Cognitive Factors Limiting Selfcare Function Cognitive Comments Cognitive Assessment Pt doing better with his memory today and feel closer Comments to his mental baseline at this time. Pt's states prior has difficulty speaking concisely. M7 OT- IP Mobility and Balance Start: 11/23/24 12:18 Freq: Status: Active Protocol: Document 11/24/24 11:26 [facility] (Rec: 11/24/24 11:36 [facility] Desktop) OT- Bed Mobility Assessment Supine to Sit Supine to Sit Assist Independent OT-Transfer Assessment Sit to and From Stand Sit to and from Standby Assistance Stand Transfers Transfer Ability Standby Assistance Technique Transfer Destination Bed Transfer Technique Stand Step Pivot Devices Transfer Assistive None,Front Wheeled Walker Devices Comments Mobility Comments CLose SBA without a device and pt at times needing to hold to surfaces for reassurance. With FWW independent and just cues to keep it close to him. OT- Balance Assessment Sitting Balance and Reactions Static Sitting Normal Balance Ability Dynamic Sitting Normal Balance Ability Standing Balance and Reactions Static Standing Good Balance Ability Dynamic Standing Fair Balance Ability M8 OT- IP Objective Assessments Start: 11/23/24 12:18 Freq: Status: Active Protocol: Document 11/23/24 12:18 [facility] (Rec: 11/23/24 12:37 [facility] Desktop) OT Gross Range of Motion Upper Extremity Range of Motion Assessment Bilaterally Impaired ROM Impairments RUE 0-90, LUE 0-110 OT Strength Upper Extremity Strength Assessment Right Impaired Shoulder 3- Elbow 4 Forearm 4 Wrist 4 Hand 4 Comments Strength Comments LUE 5/5 OT- Coordination Assessment Upper Extremity Finger to Nose Test Within Functional Limits Comments Coordination Slight increased time for both hand for finger to nose. Comments OT Sensation Assessment Comments Summary Comments Intact for light touch. M9 OT- IP Assessment and Plan Start: 11/23/24 12:18 Freq: Status: Active Protocol: Document 11/24/24 11:26 [facility] (Rec: 11/24/24 11:36 [facility] Desktop) OT Summary Assessment and Plan Potential Rehabilitation Good Potential Analytic Complexity Moderate at Evaluation Summary OT Impairments Range of Motion,Strength,Balance,Functional Cognition, Functional Mobility,Dressing,Toileting,Bathing,Toilet Transfers,Shower Transfers,Activity Tolerance Assessment Summary Pt appear to be thinking better today and when OT came in working on his insulin pump with his phone. Pt's admits that he seems to be doing better as well. Pt to go home when medically stable. Pt will still benefit form outpt PT for dynamic balance needs. CASTING AND PASTING SUPERVISOR was able to go over memory strategies with pt. Goals Dressing Goal Independent Toileting Goal Independent Bathing Goal Independent Toilet Transfer Goal Independent Shower Transfer Goal Independent Days to Meet Goals 2 Treatment Plan OT Treatment Plan ADL Training,Functional Cognition Training,IADL Training,Patient/Family Education,Discharge Planning Other Treatment [employer] [place] Making Part B Recommendations and Next Treatment Focus Discharge Recommendations OT Discharge Home with Assistance,Outpatient PT Recommendations Transportation Needs Private Vehicle at Discharge
--- NOTE | 2024-11-24 11:05 | PT.IPTN ---
Physical Therapy Treatment Note M2 PT-IP Current Condition Start: 11/23/24 12:28 Freq: NEEDED Status: Active Protocol: Document 11/23/24 10:20 AB (Rec: 11/23/24 12:38 AB [id number]) Physical Therapy Current Condition Current Condition Evaluation Date 11/23/24 Treatment Diagnosis head injury; difficulty in walking Onset Date 11/22/24 M3 PT-IP Subjective Start: 11/23/24 12:28 Freq: NEEDED Status: Active Protocol: Document 11/24/24 11:05 AB (Rec: 11/24/24 11:36 AB [id number]) Subjective Physical Therapy Visit Type Type Treatment Note Visit Start Time 11:05 Visit Stop Time 11:15 Number of CORNER CUTTER MACHINE OPERATOR Visits 0 Physical Therapy Visit Comments Patient Comments agreeable to do PT M4 PT-IP Mobility and Gait Start: 11/23/24 12:28 Freq: NEEDED Status: Active Protocol: Document 11/24/24 11:05 AB (Rec: 11/24/24 11:36 AB [id number]) PT-Transfer Assessment Sit to and From Stand Sit to and from Standby Assistance Stand Equipment Transfer Assistive None,Gait Belt Device Orthotic/Prosthetic No Devices or Brace: Comments Mobility Comments Checked on pt this morning and initiated PT but ASSISTANT DIRECTOR OF RESIDENCE LIFE came to see pt. checked back on pt again and pt in bed . stated that he is so tired after stress test this morning and wants to rest first. checked back on pt again and pt working with OT. checked on pt and pt sitting on window bench with spouse in room. stated that he is just tired today and the stuff given to him during stress test makes him not feel too good. pt agreed to do PT. sit to stand SBA and ambulated in the hallway ~ 250 ft SBA without AD. presents with slight antalgic gait but without LOB. pt ambulated back to his room and prefer to sit on EOB . call light and table placed within reach. informed pt and spouse that no further PT needs at this time. pt agreed. left pt with spouse in room. informed nurse that PT will d/c pt. Gait Assessment Gait Gait Assistance Standby Assistance Required: Distance (Feet) 250 Able to Maintain Yes Weight Bearing Status During Gait Assistive Devices Assistive Device None,Gait Belt Orthotic/Prosthetic No Devices or Brace: Factors Limiting Gait Function Factors Limiting Decreased Activity Tolerance Gait Function M5 PT-IP Objective Assessments Start: 11/23/24 12:28 Freq: NEEDED Status: Active Protocol: Document 11/23/24 10:20 AB (Rec: 11/23/24 12:38 AB [id number]) Orientation Orientation/Cognition Level of Alertness Alert Orientation Name,Place,Situation Language Function Hard of Hearing Ability Safety Awareness Decreased Safety Awareness Memory Description Short Term Impaired Gross Range of Motion Lower Extremity ROM Assessment Within Functional Limits Strength Lower Extremity Strength Assessment Within Functional Limits Muscle Tone Muscle Tone WNL Yes M6 PT-IP Treatment Start: 11/23/24 12:28 Freq: NEEDED Status: Active Protocol: Document 11/24/24 11:05 AB (Rec: 11/24/24 11:36 AB [id number]) Physical Therapy Treatment Education Education Provided Safety M7 PT-IP Assessment and Plan Start: 11/23/24 12:28 Freq: NEEDED Status: Active Protocol: Document 11/24/24 11:05 AB (Rec: 11/24/24 11:36 AB [id number]) PT Summary Assessment and Plan Potential Rehabilitation Fair Potential Summary Impairments Strength,Balance,Sensation,Cognition,Bed Mobility, Transfers,Gait,Activity Tolerance Progress Towards Progressing Toward Goals Goals Assessment Summary pt requiring SBA for ambulation without AD and SBA provided for safety. pt plans to go home and spouse to assist if needed. No further PT intervention needed at this time. Goals Bed Mobility Goal Independent Transfer Goal Independent Gait Goal Independent Gait Distance 200 Days to Meet Goals 5 Frequency of Treatment Frequency Of Once a Day Treatment Treatment Plan Physical Therapy Bed Mobility Training,Transfer Training,Gait Training, Treatment Plan Therapeutic Exercise,Balance Retraining,Discharge Planning,Hot or Cold Pack,Neuromuscular Re-ed, Coordination Retraining Precautions Other Precautions falls; seizure Recommendations To Nursing Amount of Assist Standby Assistance Needed Discharge Recommendations PT Discharge Home with Assistance Recommendations Transportation Needs Private Vehicle at Discharge - PT assist 1
--- NOTE | 2024-11-24 11:05 | PT.IPTN ---
Physical Therapy Treatment Note M2 PT-IP Current Condition Start: 11/23/24 12:28 Freq: NEEDED Status: Active Protocol: Document 11/23/24 10:20 AB (Rec: 11/23/24 12:38 AB [id number]) Physical Therapy Current Condition Current Condition Evaluation Date 11/23/24 Treatment Diagnosis head injury; difficulty in walking Onset Date 11/22/24 M3 PT-IP Subjective Start: 11/23/24 12:28 Freq: NEEDED Status: Active Protocol: Document 11/24/24 11:05 AB (Rec: 11/24/24 11:36 AB [id number]) Subjective Physical Therapy Visit Type Type Treatment Note Visit Start Time 11:05 Visit Stop Time 11:15 Number of COMPUTER SYSTEMS DESIGN ANALYST Visits 0 Physical Therapy Visit Comments Patient Comments agreeable to do PT M4 PT-IP Mobility and Gait Start: 11/23/24 12:28 Freq: NEEDED Status: Active Protocol: Document 11/24/24 11:05 AB (Rec: 11/24/24 11:36 AB [id number]) PT-Transfer Assessment Sit to and From Stand Sit to and from Standby Assistance Stand Equipment Transfer Assistive None,Gait Belt Device Orthotic/Prosthetic No Devices or Brace: Comments Mobility Comments Checked on pt this morning and initiated PT but UNDERGROUND CONDUIT INSTALLER came to see pt. checked back on pt again and pt in bed . stated that he is so tired after stress test this morning and wants to rest first. checked back on pt again and pt working with OT. checked on pt and pt sitting on window bench with spouse in room. stated that he is just tired today and the stuff given to him during stress test makes him not feel too good. pt agreed to do PT. sit to stand SBA and ambulated in the hallway ~ 250 ft SBA without AD. presents with slight antalgic gait but without LOB. pt ambulated back to his room and prefer to sit on EOB . call light and table placed within reach. informed pt and spouse that no further PT needs at this time. pt agreed. left pt with spouse in room. informed nurse that PT will d/c pt. Gait Assessment Gait Gait Assistance Standby Assistance Required: Distance (Feet) 250 Able to Maintain Yes Weight Bearing Status During Gait Assistive Devices Assistive Device None,Gait Belt Orthotic/Prosthetic No Devices or Brace: Factors Limiting Gait Function Factors Limiting Decreased Activity Tolerance Gait Function M5 PT-IP Objective Assessments Start: 11/23/24 12:28 Freq: NEEDED Status: Active Protocol: Document 11/23/24 10:20 AB (Rec: 11/23/24 12:38 AB [id number]) Orientation Orientation/Cognition Level of Alertness Alert Orientation Name,Place,Situation Language Function Hard of Hearing Ability Safety Awareness Decreased Safety Awareness Memory Description Short Term Impaired Gross Range of Motion Lower Extremity ROM Assessment Within Functional Limits Strength Lower Extremity Strength Assessment Within Functional Limits Muscle Tone Muscle Tone WNL Yes M6 PT-IP Treatment Start: 11/23/24 12:28 Freq: NEEDED Status: Active Protocol: Document 11/24/24 11:05 AB (Rec: 11/24/24 11:36 AB [id number]) Physical Therapy Treatment Education Education Provided Safety M7 PT-IP Assessment and Plan Start: 11/23/24 12:28 Freq: NEEDED Status: Active Protocol: Document 11/24/24 11:05 AB (Rec: 11/24/24 11:36 AB [id number]) PT Summary Assessment and Plan Potential Rehabilitation Fair Potential Summary Impairments Strength,Balance,Sensation,Cognition,Bed Mobility, Transfers,Gait,Activity Tolerance Progress Towards Progressing Toward Goals Goals Assessment Summary pt requiring SBA for ambulation without AD and SBA provided for safety. pt plans to go home and spouse to assist if needed. No further PT intervention needed at this time. Goals Bed Mobility Goal Independent Transfer Goal Independent Gait Goal Independent Gait Distance 200 Days to Meet Goals 5 Frequency of Treatment Frequency Of Discharge Treatment Treatment Plan Physical Therapy Bed Mobility Training,Transfer Training,Gait Training, Treatment Plan Therapeutic Exercise,Balance Retraining,Discharge Planning,Hot or Cold Pack,Neuromuscular Re-ed, Coordination Retraining Precautions Other Precautions falls; seizure Recommendations To Nursing Amount of Assist Standby Assistance Needed Discharge Recommendations PT Discharge Home with Assistance Recommendations Transportation Needs Private Vehicle at Discharge - PT assist 1
[2024-11-24 12:00] VITALS: BP 99/61; PULSE 82; RESP 16; TEMP 36.6; O2SAT 93
--- NOTE | 2024-11-24 12:50 | DIET.INSP ---
Nutrition/Diabetes Insulin Pump Consult Assessment: 73 y/o M familiar to this RD from OP diabetes education. Admitted for closed head injury. PMH of seizure disorder. brought Omnipod today but application error occurred and he was not able to wear the pump today. will bring a new pod tomorrow for placement. Will need Lantus reinstated. RD communicated with pharmacy. Will continue on MDI until pod can be placed tomorrow. Type of pump: Omnipod5 Blood Sugar Information mg/dl 11/24: 148 fasting, 212 11/23: 114 fasting, 247, 196, 170 TIR: 5% very high 23% high 72% in range 0% low or very low 158mg/dl average 47mg/dl std dev 29.9% variation Interventions: Discussed calling Dexcom and Omnipod to replace previouly failed sensors/pods RD discussed reinstatement of MDI at this time Rec 30u Lantus and 10-15u prandial insulin + correction Monitoring and Evaluation: f/u tomorrow regarding OP5 start
[2024-11-24] MEDS: INSULIN GLARGINE 100 UNIT/ML 3ML PEN 15 UNIT SUBCUT (12:58)
--- NOTE | 2024-11-24 15:14 | P.DS_ITS ---
History of Present Illness History of Present Illness Chief complaint: confusion, blood on face Narrative: From H&P: Anterograde and retrograde amnesia after concussion History of present illness: 11/22: 73-year-old male likely had a fall does not remember drove by personal vehicle from [place] was noted by ER staff to have blood in his face and abrasion under his nose and on his left latter day. arrives shortly after 2:00 p.m. and provide some collateral history. Reportedly she and him had driven to the hospital as she had a doctor's appointment. He was in the car with her in the dog. That was the last that she saw are heard of him. She reports that this morning was acting a bit ?goofy? but did not have an abrasion when she left for her appointment and left him in the car. In the emergency room he was evaluated findings there include: CT head: Left posterior frontal scalp hematoma without skull fracture no acute intracranial pathology CT cervical spine shows no fracture subluxation or dislocation Hemogram and comprehensive metabolic unremarkable Initial troponin unmeasurable 3 hour troponin 0.035 EKG sinus rhythm no acute ST segments or T-wave changes Discharge Providers Provider Date of admission: 11/22/24 18:33 Discharge Date: 11/24/24 Primary care physician: Gene Umana MD Consults: 11/22/24 19:28 Consult to Discharge Planning Routine Comment: Consult to Occupational Therapy Evaluate & Treat Comment: Physician Instructions: Evaluate and treat Consult to Physical Therapy Evaluate & Treat Comment: Physician Instructions: Evaluate and Treat Consult to Speech Therapy Evaluate & Treat Comment: Physician Instructions: Evaluate and treat 11/22/24 20:30 Consult to Pharmacy Routine Comment: high fall risk 11/23/24 11:43 Consult to Dietitian, Adult Routine Comment: Reason For Exam: home insulin pump disconnected; has dexcom Discharge provider: Rudolph Russell MD Summary Hospital Course Discharge Diagnosis: 1. Accidental drug overdose with Topamax, improved. 2. Fall with head contusion and abrasion. 3. Chronic seizure disorder without report of recent seizures. 4. Mild cognitive impairment with slums of 25. 5. Mild demand ischemia, improved. Hospital Course: 11/23: No further events recorded overnight alert conversant having difficulty with memory 11/24: Improved to baseline. Did well physical therapy. is happy take him home. He was discussed with his primary care, Dr. Umana. We will discharge home without changing any medications at current time and follow up with PCP within the next week. Status at Discharge Cognitive/behavioral status at discharge: oriented Functional status at discharge: independent ambulation Overall status at discharge: patient is back to baseline Time Spent with Patient Time spent: Greater than 30 minutes Exam Vital Signs (past 8 hours): - 11/24/24 12:00 Temperature 97.8 F Pulse Rate 82 Respiratory Rate 16 Blood Pressure 99/61 Pulse Oximetry 93 Oxygen Flow Rate 0 Oxygen Delivery Method Room Air Oxygen Flow Rate 0 Narrative Exam Narrative: NAD, alert and oriented. Fluent speech. Lungs are clear, normal rate and effort. Heart is regular, no murmur gallop or rub. Abdomen is soft, non distended. Extremities are free of edema. Objective ECG Impression: Rate: 75 P: 53 VA: 298 QRS: -29 QRSD: 152 T: 21 QT: 408 QTc: 455 Interpretive Statements Sinus rhythm with 1st degree AV block Right bundle branch block Imaging Multiple studies:: Radiologist's impression: Myocardial perfusion stress test: IMPRESSION: Abnormal pharm nuclear stress test. 1) There is a moderately intense fixed inferior wall defect that may be prior non-transmural infarction or artifact. No ischemia. No prone images obtained. 2) Normal left ventricular size, wall motion, and systolic function (EF post stress 69%). 3) No diagnostic ST changes with lexiscan. 4) No angina during the study. 5) No prior nuclear stress test available for comparison. Chest x-ray: Bilateral basilar atelectasis, no definite focal infiltrate. Head CT: No acute intracranial pathology. Left posterior frontal parietal scalp hematoma without acute skull fracture. Cervical C-spine: 1. No displaced fracture or traumatic subluxation. 2. Chronic appearing compression deformities as above, unchanged from prior study. Labs 11/22/24 13:30 11/22/24 13:30 Labs: Laboratory Results - last 24 hr 11/23/24 11/23/24 11/24/24 16:30 19:47 08:36 POC Whole Bld Glucose 196 H 170 H 148 H 11/24/24 10:40 POC Whole Bld Glucose 212 H [facility] Medical History Arthritis of carpometacarpal (CMC) joint of left thumb Family history of colon cancer in mother Primary osteoarthritis involving multiple joints Obesity (BMI 30.0-34.9) Diabetic retinopathy Stage 3b chronic kidney disease (CKD) Mixed hyperlipidemia Essential hypertension Type 2 diabetes mellitus with stage 3b chronic kidney disease Erectile dysfunction due to diabetes mellitus BPH w urinary obs/LUTS Elevated PSA Seizure disorder Surgical History Hx of prostate biopsy Family History Father Diabetes mellitus Grandfather Diabetes mellitus Social History marital status: details: 1 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 Transient confusional episode which may have related to a Topamax overdose which was accidental. 2. Ground level fall with facial contusion and abrasion. 3. Mild cognitive impairment. Discharge Plan Discharge Plan Patient Disposition: Home Provider Discharge Comment: Stable for discharge home. Discharge orders & Medications Prescriptions: Continued glucagon 3 mg/actuation spray,non-aerosol 3 mg intranasal ONCE Qty: 2 3RF Rx Instructions: as a single dose Fiasp FlexTouch U-100 Insulin 100 unit/mL (3 mL) insulin pen 20 unit SUBCUT TIDWMEAL Qty: 15 3RF insulin glargine [Basaglar KwikPen U-100 Insulin] 100 unit/mL (3 mL) insulin pen 70 unit SUBCUT QPM Qty: 15 3RF (DME) Dexcom G7 Multiple Spindle Router Operator Misc See Rx Instructions .Route Qty: 1 1RF Rx Instructions: As directed insulin aspart U-100 100 unit/mL solution See Rx Instructions SUBCUT USEASDIRECTD Qty: 10 2RF Rx Instructions: subcutaneously use as directed; use up to 200 units every 3 days in Omnipod (DME) Omnipod 5 G6-G7 Pods (Gen 5) Cartridge See Rx Instructions .Route Qty: 10 5RF Rx Instructions: Use for automated insulin delivery losartan 100 mg tablet 100 mg PO DAILY Qty: 90 3RF amlodipine 5 mg tablet 5 mg PO DAILY Qty: 90 3RF atorvastatin 20 mg tablet 20 mg PO DAILY Qty: 90 3RF tamsulosin 0.4 mg capsule 0.4 mg PO BEDTIME Qty: 90 3RF (DME) Dexcom G7 Sensor Device See Rx Instructions .Route Qty: 9 4RF Rx Instructions: Use to monitor blood glucose continuously topiramate 200 mg tablet 200 mg PO BID Qty: 180 3RF lamotrigine 200 mg tablet 200 mg PO .COMPLEX Rx Instructions: 300 mg in am and 350 mg at in pm Jardiance 25 mg tablet 25 mg PO DAILY Qty: 90 3RF cholecalciferol (vitamin D3) [Vitamin D3] 2,000 unit Capsule 2 cap PO DAILY Medication counseling provided by Pharmacist: No Follow up/Referrals: Gene Umana MD [Primary Care Provider, Internal Medicine] Discharge Health Status Multidrug resistant organism: No MDRO Diet/Activity/Treatments Diet: Carb-consistent/Diabetic Activity: As tolerated. Visit Report/Discharge Packet Stand Alone Forms: Patient Portal/API Discharge Data Primary Care Provider: Gene Umana V Attending Provider: Segun Pena Admit Date/Time: 11/22/24 18:33
[2024-11-26 21:39] LABS: Lamotrigine Lamictal 3.2 ug/mL (2.0-20.0)
== END 2024-11-24 15:35 | disposition home or self-care (01) ==
LOC: ED 18:32 → AC 18:34
PROVIDERS: Student in an Organized Health Care Education/Training Program; Admitting Provider Internal Medicine; Emergency Provider Family Medicine; PCP Internal Medicine; Referring Provider Family Medicine; Visit Provider Internal Medicine
DX: G31.84 Mild cognitive impairment of uncertain or unknown etiology (principal); S00.212A Abrasion of left eyelid and periocular area, initial encounter; W19.XXXA Unspecified fall, initial encounter; E11.22 Type 2 diabetes mellitus with diabetic chronic kidney disease; I12.9 Hypertensive chronic kidney disease with stage 1 through stage 4 chronic kidney disease, or unspecified chronic kidney disease; N18.32 Chronic kidney disease, stage 3b; Z79.84 Long term (current) use of oral hypoglycemic drugs; Z79.4 Long term (current) use of insulin; Z96.41 Presence of insulin pump (external) (internal); R79.89 Other specified abnormal findings of blood chemistry; G40.909 Epilepsy, unspecified, not intractable, without status epilepticus; I24.89 Other forms of acute ischemic heart disease
CPT/HCPCS: 36415; 70450; 71045; 72125; 78452; 80053; 80061; 80175; 80201; 80305; 80320; 81001; 82550; 82962; 83036; 84146; 84484; 85025; 85379; 90471; 92507; 92523; 93005; 93017; 96361; 96372; 96374; 97116; 97129; 97130; 97162; 97166; 97530; 99285; G0378; 90715; A9502; J1815; J2405; J2785; J7030

== ENCOUNTER → 2024-12-06 10:17 | Outpatient (CLI) | payer OTHER, SELFPAY ==
[2024-11-25 10:53] VITALS: BMI 30.9
--- NOTE | 2024-12-06 10:19 | DI.RAD.S_ITS ---
PROCEDURE: XR SHOULDER RT MIN 2V INDICATIONS: right shoulder pain, fall TECHNIQUE: 3 views of the shoulder were acquired. COMPARISON: [facility], CR, XR SHOULDER LT MIN 2V, 07/02/2023, 14:13. FINDINGS: Bones: No fractures or dislocations. No suspicious bony lesions. Visualized ribs appear intact. Mild glenohumeral and acromioclavicular joint space narrowing. Soft tissues: No suspicious soft tissue calcifications. IMPRESSION: No acute osseous abnormality. 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 Dictated by: Dawson Diana M.D. on 12/06/2024 at 10:56 Approved by: Dawson Diana M.D. on 12/06/2024 at 10:57
== END ==
PROVIDERS: PCP Internal Medicine; Referring Provider Internal Medicine; Visit Provider Internal Medicine
DX: M19.011 Primary osteoarthritis, right shoulder (principal); M25.511 Pain in right shoulder
CPT/HCPCS: 73030

== ENCOUNTER → 2024-12-21 12:43 | Outpatient (CLI) | payer OTHER, SELFPAY ==
[2024-11-25 10:53] VITALS: BMI 30.9
--- NOTE | 2025-01-27 17:02 | DIAB.MNTFU ---
Follow-up Diabetes Medical Nutrition Therapy Assessment Name: John Perez (Isaiah) Date: 12/21/24 Time: 1-130p Dx: Type II Diabetes Isaiah presents for Dm f/u. Continues on insulin therapy using Omnipod 5/Dexcom system States he has family in town, more cooking/baking, higher CHO inatke. Diet soda more lately, few times per week. Ice cream more lately, daily and not bolusing for this. Interested in trying steamed cauliflower when discussing increasing veg intake. not bolusing for fruit itnake. Pump Settings: TDD: 47u---- 46.7u--- 46.5u--- 56.8u Basal rate: 1u/hr IC: 6.8u grams/u ISF: 36mg/dl per unit duration of insulin: 3 hours Anthropometrics: Ht: 6'3 Wt: 249# reported 12/2024 242# reported 08/2024 245# reported 06/2024 255# reported 05/2024 Reports wt of 242# while on omnipod Self-Monitoring Blood Glucose: Mostly in goal TIR, however increased hyperglycemia above 250mg/dl, likely r/t increase in CHO intake and missed boluses. Today TIR: 4% very high 18% high 78% in range 0% low 0% very low Av mg/dl GMI 6.9% variability: 27.8% std dev: 42 mg/dl Last TIR: 1% very high 19% high 80% in range 0% low 0% very low Av mg/dl GMI 6.8% variability: 26.8% std dev: 39 mg/dl Diabetes Medications: Aspart via Omnipod Pertinent Labs: HgA1c: 7.3% 03/2023 7.2% 06/2023 6.9% 12/2023 6.2% 06/2024 Past Medical History: BPH w urinary obs/LUTS Diabetic retinopathy Elevated PSA Erectile dysfunction due to diabetes mellitus Essential hypertension Family history of colon cancer in mother Mixed hyperlipidemia Obesity (BMI 30.0-34.9) Primary osteoarthritis involving multiple joints Seizure disorder Stage 3b chronic kidney disease (CKD) Type 2 diabetes mellitus with stage 3b chronic kidney disease Nutrition Rx: Carbohydrates: Meal:45-60gSnack:15-30g Nutrition Diagnosis: Excessive CHO intake r/t family visiting changing food dynamics aeb pt report and BG postprandial Intervention: This participant was very receptive. Provided appropriate educational handouts. Discussed the following topics: Dosing for carb intake, especially sweets CHO portion recs Keeping snack on you when leaving the house instead of running elevated Added to his custom foods list Goals: Call Omnipod for replacements- met Choose smaller fruit portions or dose for larger portions- not met Keep a snack on you, instead of running high intentionally- not met Bolus for ice cream and sweets- new Follow-up: KALPANA SEAMAN follow-up in 3-4 months per pt request, sooner prn Marietta Lira RDN, JURGEN Certified Diabetes Care and Public Relations Specialist P: [phone] Thank you for this referral
== END ==
LOC: DIET 12:43
PROVIDERS: PCP Internal Medicine; Referring Provider Internal Medicine
DX: E11.65 Type 2 diabetes mellitus with hyperglycemia (principal); Z71.3 Dietary counseling and surveillance; Z79.4 Long term (current) use of insulin; Z96.41 Presence of insulin pump (external) (internal)
CPT/HCPCS: G0270